=== PATIENT | male | born 1960 | race Caucasian/White ===

== ENCOUNTER → 2017-09-03 | Outpatient (CLI) | payer OTHER ==
[~2017-09-03] MED LIST: ? HTN MED; AMLO10 PO; AMLO5; ANTIANXIETY MED; ASPI81EC PO; CRUTCH4 USE; HYDACE10B PO; HYDACE5 PO; LISHYD1012; LORA1 PO; LOSHYD PO; METO25ER; METO50 PO; METO50ER PO; MULVITMIND PO; Naprosyn500 MG PO; Norco 5-325 Ta1 EACH PO; OMEP20ER PO; ONDA8 PO; OXYACE5T PO; Percocet 5-3251 EACH PO; Prednisone20 MG PO; TAMS.4ER PO; VALD10 PO; Zofran Odt4 MG SL
== END | disposition home or self-care (01) ==
LOC: LAB SHORT 10:00 → LAB 10:00 → LAB FUT 09-02 12:45
DX: K52.9 Noninfective gastroenteritis and colitis, unspecified (principal)
CPT/HCPCS: 87015; 87045; 87046; 87205; 87329; 87493; 87899

== ENCOUNTER 2017-09-24 16:59 | Emergency (ER) | payer OTHER ==
[~2017-09-24] VITALS: Ht 172.7 cm; Wt 113.4 kg
[2017-09-24] MEDS ORDERED: ANXIETY MEDICATION (17:14)
[2017-09-24 17:38] LABS: BASOPHILS ABSOLUTE AUTO 0.02 K/mm3 (0.00-0.23); BASOPHILS PERCENT AUTO 0 % (0-2); EOSINOPHILS ABSOLUTE AUTO 0.09 K/mm3 (0.00-0.68); EOSINOPHILS PERCENT AUTO 1 % (0-6); Hemoglobin 15.3 g/dL (13.5-17.5); IMMATURE GRAN ABSOLUTE AUTO 0.05 K/mm3 (0.00-0.10); IMMATURE GRAN PERCENT AUTO 1 % (0-1); LYMPHOCYTES ABSOLUTE AUTO 0.86 K/mm3 (0.84-5.20); LYMPHOCYTES PERCENT AUTO 9 % (21-46); MONOCYTES ABSOLUTE AUTO 0.83 K/mm3 (0.16-1.47); MONOCYTES PERCENT AUTO 8 % (4-13); Mean Corpuscular HGB 35.6 pg (26.0-34.0); Mean Corpuscular HGB Conc 34.8 g/dL (31.5-36.5); Mean Corpuscular Volume 102 fL (80-100); NEUTROPHILS PERCENT AUTO 81 % (41-73); Platelet Count 200 K/mm3 (150-400); RDW Coefficient Variation 11.9 % (11.7-14.2); RDW Standard Deviation 45.1 fL (35.1-46.3); White Blood Cell Count 9.85 K/mm3 (4.00-11.30)
[2017-09-24 17:59] LABS: Alanine Aminotransfer (ALT/SGP 146 U/L (12-78); Albumin, Blood 2.9 g/dL (3.4-5.0); Albumin/Globulin Ratio 0.6 (0.8-1.8); Alk Phos 144 U/L (50-136); Anion Gap 10 mmol/L (6-16); Aspartate Aminotrans (AST/SGOT 143 U/L (12-37); Bilirubin, Total 3.8 mg/dL (0.1-1.0); Blood Urea Nitrogen 15 mg/dL (8-24); CO2, Blood 23 mmol/L (21-32); Calcium, Blood 8.9 mg/dL (8.5-10.1); Chloride, Blood 102 mmol/L (98-108); Creatinine, Blood 0.71 mg/dL (0.60-1.20); Globulin, Blood 4.8 g/dL (2.2-4.0); Glomerular Filtration Rate >60 (60-); Glucose, Blood 136 mg/dL (70-99); Potassium, Blood 3.8 mmol/L (3.5-5.5); Sodium, Blood 135 mmol/L (136-145); Total Protein, Blood 7.7 g/dL (6.4-8.2)
== END 2017-09-24 18:50 | disposition left against medical advice (07) ==
LOC: ER 16:59
PROVIDERS: Emergency Medicine
DX: Z53.21 Procedure and treatment not carried out due to patient leaving prior to being seen by health care provider (principal)
CPT/HCPCS: 36415; 80053; 85025; 86850; 86900; 86901; 99283

== ENCOUNTER 2017-11-17 18:36 | Inpatient (IN) | payer OTHER ==
[~2017-11-17] VITALS: Ht 172.7 cm; Wt 112.5 kg
[~2017-11-17 18:36] MED LIST changes: +ANXIETY MEDICATION
[2017-11-17 19:14] LABS: BASOPHILS ABSOLUTE AUTO 0.02 K/mm3 (0.00-0.23); BASOPHILS PERCENT AUTO 0 % (0-2); EOSINOPHILS ABSOLUTE AUTO 0.04 K/mm3 (0.00-0.68); EOSINOPHILS PERCENT AUTO 0 % (0-6); Hematocrit 47.9 % (37.0-53.0); Hemoglobin 16.4 g/dL (13.5-17.5); IMMATURE GRAN ABSOLUTE AUTO 0.04 K/mm3 (0.00-0.10); IMMATURE GRAN PERCENT AUTO 0 % (0-1); LYMPHOCYTES ABSOLUTE AUTO 1.35 K/mm3 (0.84-5.20); LYMPHOCYTES PERCENT AUTO 11 % (21-46); MONOCYTES PERCENT AUTO 8 % (4-13); Mean Corpuscular HGB 35.3 pg (26.0-34.0); Mean Corpuscular HGB Conc 34.2 g/dL (31.5-36.5); Mean Corpuscular Volume 103 fL (80-100); NEUTROPHILS ABSOLUTE AUTO 10.09 K/mm3 (1.96-9.15); NEUTROPHILS PERCENT AUTO 80 % (41-73); Platelet Count 225 K/mm3 (150-400); RDW Coefficient Variation 11.8 % (11.7-14.2); RDW Standard Deviation 44.5 fL (35.1-46.3); Red Blood Cell Count 4.65 M/mm3 (4.30-5.90); White Blood Cell Count 12.54 K/mm3 (4.00-11.30)
[2017-11-17 19:35] LABS: Alanine Aminotransfer (ALT/SGP 53 U/L (12-78); Albumin, Blood 3.5 g/dL (3.4-5.0); Albumin/Globulin Ratio 0.8 (0.8-1.8); Alk Phos 116 U/L (50-136); Anion Gap 13 mmol/L (6-16); Aspartate Aminotrans (AST/SGOT 75 U/L (12-37); Bilirubin, Total 1.7 mg/dL (0.1-1.0); Blood Urea Nitrogen 8 mg/dL (8-24); Bun/Creatinine Ratio 11.2 (12.0-20.0); CO2, Blood 24 mmol/L (21-32); Calcium, Blood 8.8 mg/dL (8.5-10.1); Chloride, Blood 103 mmol/L (98-108); Creatinine, Blood 0.72 mg/dL (0.60-1.20); Globulin, Blood 4.5 g/dL (2.2-4.0); Glomerular Filtration Rate >60 (60-); Glucose, Blood 212 mg/dL (70-99); Potassium, Blood 3.6 mmol/L (3.5-5.5); Sodium, Blood 140 mmol/L (136-145)
[2017-11-17 20:37] LABS: Troponin I <0.015 ng/mL (0.000-0.040)
[2017-11-17] MEDS ORDERED: SERT100 PO (21:09)
[2017-11-17] MEDS ORDERED: FURO40 PO (21:09)
[2017-11-17] MEDS ORDERED: ALBU90OI INH (21:10)
[2017-11-17] MEDS ORDERED: METF500C PO (21:10)
[2017-11-17] MEDS ORDERED: POTCHL10ER PO (21:10)
[2017-11-17] MEDS ORDERED: ADULT ASPIRIN81 MG PO (23:39)
[2017-11-18 04:17] LABS: Hematocrit 45.7 % (37.0-53.0); Hemoglobin 15.7 g/dL (13.5-17.5); Mean Corpuscular HGB 35.4 pg (26.0-34.0); Mean Corpuscular HGB Conc 34.4 g/dL (31.5-36.5); Mean Corpuscular Volume 103 fL (80-100); Mean Platelet Volume 9.5 fL (9.1-12.4); Platelet Count 219 K/mm3 (150-400); RDW Standard Deviation 45.8 fL (35.1-46.3); Red Blood Cell Count 4.43 M/mm3 (4.30-5.90); White Blood Cell Count 13.45 K/mm3 (4.00-11.30)
[2017-11-18 04:35] LABS: Alanine Aminotransfer (ALT/SGP 49 U/L (12-78); Albumin, Blood 3.2 g/dL (3.4-5.0); Albumin/Globulin Ratio 0.7 (0.8-1.8); Alk Phos 111 U/L (50-136); Anion Gap 9 mmol/L (6-16); Aspartate Aminotrans (AST/SGOT 63 U/L (12-37); Blood Urea Nitrogen 10 mg/dL (8-24); Bun/Creatinine Ratio 16.3 (12.0-20.0); CO2, Blood 28 mmol/L (21-32); Calcium, Blood 8.2 mg/dL (8.5-10.1); Chloride, Blood 103 mmol/L (98-108); Creatinine, Blood 0.61 mg/dL (0.60-1.20); Globulin, Blood 4.3 g/dL (2.2-4.0); Glomerular Filtration Rate >60 (60-); Glucose, Blood 200 mg/dL (70-99); Potassium, Blood 4.1 mmol/L (3.5-5.5); Sodium, Blood 140 mmol/L (136-145); Total Protein, Blood 7.5 g/dL (6.4-8.2)
[2017-11-18 10:05] LABS: Source, Urine Clean Catch
[2017-11-18 10:10] LABS: Blood, Urine Neg (Neg); Glucose Qualitative, Urine Neg (Neg); Ketones, Urine Neg (Neg); Leukocyte Esterase, Urine Neg (Neg); Nitrite, Urine Neg (Neg); Protein, Urine Neg (Neg); Urobilinogen, Urine 3+ (Normal)
[2017-11-18 10:20] LABS: Bilirubin, Urine 1+ (Neg)
[2017-11-18 10:21] LABS: Appearance, Urine Clear (Clear); Color, Urine Yellow (P-Yellow)
[2017-11-18 10:27] LABS: U Amphetamine Screen Not Detected; U Barbituate Screen Not Detected; U Benzodiazapine Screen Not Detected; U Buprenorphine Screen Not Detected; U Cannabinoids Screen DETECTED; U Cocaine Screen Not Detected; U Methadone Screen Not Detected; U Methamphetamine Screen Not Detected; U Opiates Screen DETECTED; U Oxycodone Screen Not Detected; U Phencyclidine Screen Not Detected; U Propoxyphene Screen Not Detected
[2017-11-19 04:10] LABS: BASOPHILS ABSOLUTE AUTO 0.03 K/mm3 (0.00-0.23); BASOPHILS PERCENT AUTO 0 % (0-2); EOSINOPHILS ABSOLUTE AUTO 0.07 K/mm3 (0.00-0.68); EOSINOPHILS PERCENT AUTO 1 % (0-6); Hematocrit 45.2 % (37.0-53.0); Hemoglobin 15.2 g/dL (13.5-17.5); IMMATURE GRAN ABSOLUTE AUTO 0.04 K/mm3 (0.00-0.10); IMMATURE GRAN PERCENT AUTO 0 % (0-1); LYMPHOCYTES ABSOLUTE AUTO 2.03 K/mm3 (0.84-5.20); LYMPHOCYTES PERCENT AUTO 13 % (21-46); MONOCYTES PERCENT AUTO 8 % (4-13); Mean Corpuscular HGB 35.2 pg (26.0-34.0); Mean Corpuscular HGB Conc 33.6 g/dL (31.5-36.5); Mean Corpuscular Volume 105 fL (80-100); Mean Platelet Volume 9.5 fL (9.1-12.4); NEUTROPHILS ABSOLUTE AUTO 11.95 K/mm3 (1.96-9.15); NEUTROPHILS PERCENT AUTO 77 % (41-73); Platelet Count 172 K/mm3 (150-400); RDW Coefficient Variation 11.9 % (11.7-14.2); RDW Standard Deviation 46.4 fL (35.1-46.3); Red Blood Cell Count 4.32 M/mm3 (4.30-5.90); White Blood Cell Count 15.42 K/mm3 (4.00-11.30)
[2017-11-19 04:29] LABS: Alanine Aminotransfer (ALT/SGP 37 U/L (12-78); Albumin, Blood 2.9 g/dL (3.4-5.0); Albumin/Globulin Ratio 0.7 (0.8-1.8); Alk Phos 98 U/L (50-136); Anion Gap 6 mmol/L (6-16); Aspartate Aminotrans (AST/SGOT 52 U/L (12-37); Bilirubin, Total 3.3 mg/dL (0.1-1.0); Blood Urea Nitrogen 11 mg/dL (8-24); Bun/Creatinine Ratio 17.5 (12.0-20.0); CO2, Blood 29 mmol/L (21-32); Calcium, Blood 7.8 mg/dL (8.5-10.1); Chloride, Blood 104 mmol/L (98-108); Creatinine, Blood 0.63 mg/dL (0.60-1.20); Globulin, Blood 4.2 g/dL (2.2-4.0); Glomerular Filtration Rate >60 (60-); Glucose, Blood 118 mg/dL (70-99); Sodium, Blood 139 mmol/L (136-145); Total Protein, Blood 7.1 g/dL (6.4-8.2)
[2017-11-19 15:33] LABS: RETIC HGB EQUIVALENT 40.4 pg (28.20-36.60); RETICULOCYTE ABSOLUTE 0.1168 M/mm3 (0.0200-0.1100); RETICULOCYTE COUNT PERCENT 2.92 % (0.50-2.50)
[2017-11-20 05:11] LABS: BASOPHILS ABSOLUTE AUTO 0.02 K/mm3 (0.00-0.23); BASOPHILS PERCENT AUTO 0 % (0-2); EOSINOPHILS ABSOLUTE AUTO 0.17 K/mm3 (0.00-0.68); EOSINOPHILS PERCENT AUTO 1 % (0-6); Hematocrit 41.6 % (37.0-53.0); Hemoglobin 14.7 g/dL (13.5-17.5); IMMATURE GRAN ABSOLUTE AUTO 0.05 K/mm3 (0.00-0.10); IMMATURE GRAN PERCENT AUTO 0 % (0-1); LYMPHOCYTES ABSOLUTE AUTO 1.85 K/mm3 (0.84-5.20); LYMPHOCYTES PERCENT AUTO 15 % (21-46); MONOCYTES ABSOLUTE AUTO 1.08 K/mm3 (0.16-1.47); MONOCYTES PERCENT AUTO 9 % (4-13); Mean Corpuscular HGB Conc 35.3 g/dL (31.5-36.5); Mean Corpuscular Volume 102 fL (80-100); Mean Platelet Volume 9.5 fL (9.1-12.4); NEUTROPHILS ABSOLUTE AUTO 9.27 K/mm3 (1.96-9.15); NEUTROPHILS PERCENT AUTO 74 % (41-73); Platelet Count 151 K/mm3 (150-400); RDW Coefficient Variation 11.5 % (11.7-14.2); RDW Standard Deviation 43.7 fL (35.1-46.3); Red Blood Cell Count 4.08 M/mm3 (4.30-5.90); White Blood Cell Count 12.44 K/mm3 (4.00-11.30)
[2017-11-20 05:30] LABS: Alanine Aminotransfer (ALT/SGP 31 U/L (12-78); Albumin, Blood 2.5 g/dL (3.4-5.0); Albumin/Globulin Ratio 0.6 (0.8-1.8); Alk Phos 86 U/L (50-136); Anion Gap 11 mmol/L (6-16); Aspartate Aminotrans (AST/SGOT 33 U/L (12-37); Bilirubin, Total 2.1 mg/dL (0.1-1.0); Blood Urea Nitrogen 12 mg/dL (8-24); Bun/Creatinine Ratio 21.8 (12.0-20.0); CO2, Blood 23 mmol/L (21-32); Calcium, Blood 7.6 mg/dL (8.5-10.1); Chloride, Blood 105 mmol/L (98-108); Creatinine, Blood 0.55 mg/dL (0.60-1.20); Globulin, Blood 4.3 g/dL (2.2-4.0); Glomerular Filtration Rate >60 (60-); Glucose, Blood 121 mg/dL (70-99); Potassium, Blood 3.6 mmol/L (3.5-5.5); Sodium, Blood 139 mmol/L (136-145); Total Protein, Blood 6.8 g/dL (6.4-8.2)
[2017-11-20] MEDS ORDERED: CLON.1 PO (10:18)
[2017-11-20] MEDS ORDERED: SERT100 PO (10:19)
[2017-11-20] MEDS ORDERED: Glipizide ER2.5 MG PO (10:20)
[2017-11-20] MEDS ORDERED: METF500C PO (10:22)
[2017-11-21 08:07] LABS: HAPTOGLOBIN 201 mg/dL (34-200)
== END 2017-11-20 10:43 | disposition home or self-care (01) | DRG 440 ==
LOC: ER 18:36 → PCU 21:36 → MEDS 21:36 → PCU 23:28 → MEDS 11-18 23:15 → ENPENDDIS 11-20 08:30 → MEDS 11-20 10:43
PROVIDERS: Emergency Medicine; Family Medicine; Internal Medicine Gastroenterology; Nurse Practitioner Acute Care
DX: K85.90 Acute pancreatitis without necrosis or infection, unspecified (principal); I71.2 Thoracic aortic aneurysm, without rupture; F41.9 Anxiety disorder, unspecified; I10 Essential (primary) hypertension; F17.210 Nicotine dependence, cigarettes, uncomplicated; I16.0 Hypertensive urgency; G51.0 Bell's palsy; Z68.37 Body mass index [BMI] 37.0-37.9, adult; E66.3 Overweight; K80.20 Calculus of gallbladder without cholecystitis without obstruction; E11.9 Type 2 diabetes mellitus without complications; D72.829 Elevated white blood cell count, unspecified; Z87.442 Personal history of urinary calculi; Z79.82 Long term (current) use of aspirin; Z79.84 Long term (current) use of oral hypoglycemic drugs
CPT/HCPCS: 36415; 71046; 76705; 80053; 81003; 82248; 82947; 83010; 83036; 83615; 83690; 83880; 84443; 84484; 85025; 85027; 85045; 93005; 93010; 93306; 94640; 94760; 94762; 96374; 96375; 96376; 99285-25; C9113; J0360; J1650; J2405; J3010; J7030

== ENCOUNTER 2018-05-18 08:55 | Emergency (ER) | payer OTHER ==
[~2018-05-18] VITALS: Ht 172.7 cm; Wt 111.1 kg
[~2018-05-18 08:55] MED LIST changes: +ADULT ASPIRIN81 MG PO; +ALBU90OI INH; +CLON.1 PO; +FURO40 PO; +Glipizide ER2.5 MG PO; +METF500C PO; +POTCHL10ER PO; +SERT100 PO
[2018-05-18 09:21] LABS: BASOPHILS ABSOLUTE AUTO 0.02 K/mm3 (0.00-0.23); BASOPHILS PERCENT AUTO 0 % (0-2); EOSINOPHILS ABSOLUTE AUTO 0.05 K/mm3 (0.00-0.68); EOSINOPHILS PERCENT AUTO 1 % (0-6); Hemoglobin 14.9 g/dL (13.5-17.5); IMMATURE GRAN ABSOLUTE AUTO 0.01 K/mm3 (0.00-0.10); IMMATURE GRAN PERCENT AUTO 0 % (0-1); LYMPHOCYTES PERCENT AUTO 15 % (21-46); MONOCYTES ABSOLUTE AUTO 0.69 K/mm3 (0.16-1.47); MONOCYTES PERCENT AUTO 9 % (4-13); Mean Corpuscular HGB 35.4 pg (26.0-34.0); Mean Corpuscular HGB Conc 34.7 g/dL (31.5-36.5); Mean Corpuscular Volume 102 fL (80-100); Mean Platelet Volume 9.5 fL (9.1-12.4); NEUTROPHILS ABSOLUTE AUTO 5.44 K/mm3 (1.96-9.15); NEUTROPHILS PERCENT AUTO 75 % (41-73); Platelet Count 187 K/mm3 (150-400); RDW Coefficient Variation 11.8 % (11.7-14.2); RDW Standard Deviation 43.9 fL (35.1-46.3); Red Blood Cell Count 4.21 M/mm3 (4.30-5.90); White Blood Cell Count 7.31 K/mm3 (4.00-11.30)
[2018-05-18 10:56] LABS: Alanine Aminotransfer (ALT/SGP 66 U/L (12-78); Albumin, Blood 3.1 g/dL (3.4-5.0); Albumin/Globulin Ratio 0.7 (0.8-1.8); Alk Phos 110 U/L (50-136); Anion Gap 9 mmol/L (6-16); Aspartate Aminotrans (AST/SGOT 94 U/L (12-37); Bilirubin, Total 1.5 mg/dL (0.1-1.0); Blood Urea Nitrogen 6 mg/dL (8-24); CO2, Blood 26 mmol/L (21-32); Calcium, Blood 8.6 mg/dL (8.5-10.1); Chloride, Blood 106 mmol/L (98-108); Creatinine, Blood 0.75 mg/dL (0.60-1.20); Globulin, Blood 4.7 g/dL (2.2-4.0); Glomerular Filtration Rate >60 (60-); Glucose, Blood 175 mg/dL (70-99); Potassium, Blood 3.9 mmol/L (3.5-5.5); Sodium, Blood 141 mmol/L (136-145); Total Protein, Blood 7.8 g/dL (6.4-8.2); Troponin I <0.015 ng/mL (0.000-0.040)
[2018-05-18] MEDS ORDERED: HYDR1TAB94 PO (12:09)
[2018-05-18] MEDS ORDERED: Pepcid40 MG PO (12:09)
== END 2018-05-18 12:33 | disposition home or self-care (01) ==
LOC: ER 08:55
PROVIDERS: Emergency Medicine
DX: R07.2 Precordial pain (principal); F41.9 Anxiety disorder, unspecified; I10 Essential (primary) hypertension; F10.10 Alcohol abuse, uncomplicated; F17.210 Nicotine dependence, cigarettes, uncomplicated; Z88.5 Allergy status to narcotic agent; Z88.1 Allergy status to other antibiotic agents; Z79.82 Long term (current) use of aspirin; Z79.899 Other long term (current) drug therapy
CPT/HCPCS: 71046; 80053; 84484; 85025; 93005; 93010; 96374; 96375; 99285-25; J1885

== ENCOUNTER 2018-08-01 05:30 | Emergency (ER) | payer OTHER ==
[~2018-08-01] VITALS: Ht 172.7 cm; Wt 111.1 kg
[~2018-08-01 05:30] MED LIST changes: +HYDR1TAB94 PO; +Pepcid40 MG PO
[2018-08-01 06:12] LABS: BASOPHILS ABSOLUTE AUTO 0.02 K/mm3 (0.00-0.23); BASOPHILS PERCENT AUTO 0 % (0-2); EOSINOPHILS ABSOLUTE AUTO 0.09 K/mm3 (0.00-0.68); EOSINOPHILS PERCENT AUTO 1 % (0-6); Hematocrit 40.7 % (37.0-53.0); Hemoglobin 13.7 g/dL (13.5-17.5); IMMATURE GRAN ABSOLUTE AUTO 0.03 K/mm3 (0.00-0.10); IMMATURE GRAN PERCENT AUTO 0 % (0-1); LYMPHOCYTES ABSOLUTE AUTO 1.69 K/mm3 (0.84-5.20); LYMPHOCYTES PERCENT AUTO 18 % (21-46); MONOCYTES ABSOLUTE AUTO 1.05 K/mm3 (0.16-1.47); MONOCYTES PERCENT AUTO 11 % (4-13); Mean Corpuscular HGB 34.6 pg (26.0-34.0); Mean Corpuscular HGB Conc 33.7 g/dL (31.5-36.5); Mean Corpuscular Volume 103 fL (80-100); Mean Platelet Volume 9.3 fL (9.1-12.4); NEUTROPHILS ABSOLUTE AUTO 6.76 K/mm3 (1.96-9.15); NEUTROPHILS PERCENT AUTO 70 % (41-73); Platelet Count 278 K/mm3 (150-400); RDW Coefficient Variation 11.7 % (11.7-14.2); RDW Standard Deviation 44.5 fL (35.1-46.3); Red Blood Cell Count 3.96 M/mm3 (4.30-5.90); White Blood Cell Count 9.64 K/mm3 (4.00-11.30)
[2018-08-01 06:26] LABS: Alanine Aminotransfer (ALT/SGP 33 U/L (12-78); Albumin, Blood 2.7 g/dL (3.4-5.0); Albumin/Globulin Ratio 0.5 (0.8-1.8); Alk Phos 112 U/L (50-136); Anion Gap 8 mmol/L (6-16); Aspartate Aminotrans (AST/SGOT 63 U/L (12-37); Bilirubin, Total 1.3 mg/dL (0.1-1.0); Blood Urea Nitrogen 6 mg/dL (8-24); Bun/Creatinine Ratio 8.6 (12.0-20.0); CO2, Blood 27 mmol/L (21-32); Calcium, Blood 8.4 mg/dL (8.5-10.1); Chloride, Blood 102 mmol/L (98-108); Globulin, Blood 5.7 g/dL (2.2-4.0); Glomerular Filtration Rate >60 (60-); Glucose, Blood 149 mg/dL (70-99); Potassium, Blood 3.2 mmol/L (3.5-5.5); Sodium, Blood 137 mmol/L (136-145); Total Protein, Blood 8.4 g/dL (6.4-8.2); Troponin I <0.015 ng/mL (0.000-0.040)
[2018-08-01] MEDS ORDERED: Miralax17 GM PO (07:47)
[2018-08-01] MEDS ORDERED: Colace100 MG PO (07:47)
[2018-08-01] MEDS ORDERED: ONDA4ODT MM (07:50)
[2018-08-01 08:11] LABS: Source, Urine Clean Catch
[2018-08-01 08:13] LABS: Bilirubin, Urine Neg (Neg); Blood, Urine Neg (Neg); Glucose Qualitative, Urine Neg (Neg); Ketones, Urine Neg (Neg); Leukocyte Esterase, Urine Neg (Neg); Nitrite, Urine Neg (Neg); Protein, Urine Neg (Neg); Urobilinogen, Urine NORM (Normal)
[2018-08-01 08:14] LABS: Appearance, Urine Clear (Clear); Color, Urine Pale Yellow (P-Yellow)
== END 2018-08-01 07:59 | disposition home or self-care (01) ==
LOC: ER 05:30
PROVIDERS: Emergency Medicine
DX: K59.00 Constipation, unspecified (principal); I10 Essential (primary) hypertension; F41.9 Anxiety disorder, unspecified; F17.200 Nicotine dependence, unspecified, uncomplicated; Z88.5 Allergy status to narcotic agent; Z88.6 Allergy status to analgesic agent; Z88.8 Allergy status to other drugs, medicaments and biological substances; Z79.899 Other long term (current) drug therapy
CPT/HCPCS: 36415; 74022; 80053; 81003; 83690; 84484; 85025; 93005; 93010; 96361; 96374; 96375; 99284-25; J1885; J2405; J7120

== ENCOUNTER 2018-09-03 11:45 | Inpatient (IN) | payer OTHER ==
[~2018-09-03] VITALS: Ht 172.7 cm; Wt 106.4 kg
[~2018-09-03 11:45] MED LIST changes: +Colace100 MG PO; +DOCU100 PO; +GABA300 PO; +Miralax17 GM PO; +Nicoderm Cq1 EAC1 TOP; +ONDA4ODT MM
[2018-09-03 12:40] LABS: BASOPHILS ABSOLUTE AUTO 0.03 K/mm3 (0.00-0.23); BASOPHILS PERCENT AUTO 0 % (0-2); EOSINOPHILS ABSOLUTE AUTO 0.07 K/mm3 (0.00-0.68); EOSINOPHILS PERCENT AUTO 1 % (0-6); Hemoglobin 13.3 g/dL (13.5-17.5); IMMATURE GRAN ABSOLUTE AUTO 0.02 K/mm3 (0.00-0.10); IMMATURE GRAN PERCENT AUTO 0 % (0-1); LYMPHOCYTES ABSOLUTE AUTO 1.78 K/mm3 (0.84-5.20); LYMPHOCYTES PERCENT AUTO 18 % (21-46); MONOCYTES ABSOLUTE AUTO 0.75 K/mm3 (0.16-1.47); MONOCYTES PERCENT AUTO 7 % (4-13); Mean Corpuscular HGB 33.5 pg (26.0-34.0); Mean Corpuscular HGB Conc 32.4 g/dL (31.5-36.5); Mean Corpuscular Volume 103 fL (80-100); NEUTROPHILS ABSOLUTE AUTO 7.49 K/mm3 (1.96-9.15); NEUTROPHILS PERCENT AUTO 74 % (41-73); Platelet Count 265 K/mm3 (150-400); RDW Standard Deviation 46.5 fL (35.1-46.3); Red Blood Cell Count 3.97 M/mm3 (4.30-5.90); White Blood Cell Count 10.14 K/mm3 (4.00-11.30)
[2018-09-03 13:07] LABS: Alanine Aminotransfer (ALT/SGP 30 U/L (12-78); Albumin, Blood 2.8 g/dL (3.4-5.0); Albumin/Globulin Ratio 0.6 (0.8-1.8); Alk Phos 96 U/L (50-136); Anion Gap 7 mmol/L (6-16); Aspartate Aminotrans (AST/SGOT 43 U/L (12-37); Bilirubin, Total 0.7 mg/dL (0.1-1.0); Blood Urea Nitrogen 8 mg/dL (8-24); Bun/Creatinine Ratio 12.5 (12.0-20.0); CO2, Blood 22 mmol/L (21-32); Calcium, Blood 8.3 mg/dL (8.5-10.1); Chloride, Blood 111 mmol/L (98-108); Creatinine, Blood 0.64 mg/dL (0.60-1.20); Glomerular Filtration Rate >60 (60-); Glucose, Blood 173 mg/dL (70-99); Potassium, Blood 3.9 mmol/L (3.5-5.5); Sodium, Blood 140 mmol/L (136-145); Total Protein, Blood 7.8 g/dL (6.4-8.2); Troponin I <0.015 ng/mL (0.000-0.040)
[2018-09-03 18:30] LABS: International Normalized Ratio 1.11; Prothrombin Time Results 11.7 Sec (9.7-11.5)
[2018-09-04 01:58] LABS: BASOPHILS ABSOLUTE AUTO 0.02 K/mm3 (0.00-0.23); BASOPHILS PERCENT AUTO 0 % (0-2); EOSINOPHILS PERCENT AUTO 1 % (0-6); Hematocrit 40.7 % (37.0-53.0); Hemoglobin 12.9 g/dL (13.5-17.5); IMMATURE GRAN ABSOLUTE AUTO 0.03 K/mm3 (0.00-0.10); IMMATURE GRAN PERCENT AUTO 0 % (0-1); LYMPHOCYTES ABSOLUTE AUTO 2.06 K/mm3 (0.84-5.20); LYMPHOCYTES PERCENT AUTO 20 % (21-46); MONOCYTES ABSOLUTE AUTO 0.87 K/mm3 (0.16-1.47); MONOCYTES PERCENT AUTO 9 % (4-13); Mean Corpuscular HGB 32.7 pg (26.0-34.0); Mean Corpuscular HGB Conc 31.7 g/dL (31.5-36.5); Mean Corpuscular Volume 103 fL (80-100); Mean Platelet Volume 9.2 fL (9.1-12.4); NEUTROPHILS ABSOLUTE AUTO 7.14 K/mm3 (1.96-9.15); NEUTROPHILS PERCENT AUTO 70 % (41-73); Platelet Count 265 K/mm3 (150-400); RDW Standard Deviation 46.2 fL (35.1-46.3); Red Blood Cell Count 3.94 M/mm3 (4.30-5.90); White Blood Cell Count 10.22 K/mm3 (4.00-11.30)
[2018-09-04 02:07] LABS: Anion Gap 5 mmol/L (6-16); Blood Urea Nitrogen 6 mg/dL (8-24); Bun/Creatinine Ratio 9.2 (12.0-20.0); CO2, Blood 26 mmol/L (21-32); Calcium, Blood 8.1 mg/dL (8.5-10.1); Chloride, Blood 108 mmol/L (98-108); Creatinine, Blood 0.65 mg/dL (0.60-1.20); Glomerular Filtration Rate >60 (60-); Glucose, Blood 120 mg/dL (70-99); Potassium, Blood 3.7 mmol/L (3.5-5.5); Sodium, Blood 139 mmol/L (136-145)
--- NOTE | 2018-09-04 03:27 | NUR ---
SHIFT SUMMARY PT A&O X4 T/O SHIFT. PT NPO; ICE CHIPS, ORAL SWAB AND MOUTH WASH AT BEDSIDE. ABD SOFT; BTX4; FLATUS NOTED. ABD/EPIGASTRIC PAIN MANAGED PER EMAR. IV HEPARIN GTT MANAGED PER PHARMACY. VSS; NO ACUTE CHANGES. BLOOD GLUCOSE LEVELS MANAGED PER EMAR; NO INSULIN COVERAGE REQUIRED. SCD'S TO BLE'S. CALL LIGHT IN REACH; PT DEMONSTRATES USE. CIWA SCORE OF 0 T/O SHIFT. PT INDEPENDENTLY BED MOBILE. WCTM UNTIL REPORT TO DAY SHIFT RN.
--- NOTE | 2018-09-04 10:08 | NUR ---
BEGINNING OF SHIFT Assumed care of pt at 0700. Report received from Yola HENRY. Pt on room air. Independent for room activities. Shift assessment completed. Pt pleasant and cooperative with care. Pt talks to staff about his health history and the care he provides for his spouse. He talks in detail about her disabilities and the care he helps provide for her. Dr Moreno in to see patient. Pt medical floor status without telemetry. Pt independently ambulated for 10-15 minutes. Tolerates activity well, but requested dilaudid after ambulating. Pt had emesis immediately after administration after dilaudid. Pt states this is a known reaction to the medication and he has experienced it before. Bed in lowest position. Call light in reach. Pt denies need at this time.
--- NOTE | 2018-09-04 17:20 | NUR ---
SHIFT SUMMARY No acute changes t/o shift. Pt has been independent in room. Tolerating clear liquid diet well. Pt has not had any additional episodes of emesis. Will continue to closely monitor until care handoff and bedside report with oncoming RN.
--- NOTE | 2018-09-05 04:14 | NUR ---
SHIFT SUMMARY: PT A&O X4 T/O SHIFT. VSS. GIVEN 1MG DILAUDID PER EMAR FOR C/O ABD PAIN. PT EAGER TO SWITCH FROM IV PAIN MEDICATION TO ORAL. PT DENIES N/V. ESPINOZA CLEAR LIQ DIET. ACTIVE BT. BLOOD SUGARS STABLE. HEPARIN DRIP INFUSING. TITRATED ONCE OVER NIGHT PER PHARMACY. PT INDEPENDENT IN ROOM. VOIDING IN URINAL. NO CONCERNS AT THIS TIME.
[2018-09-05 07:23] LABS: Alpha Feto Protein, Tumor Mkr 2.5 ng/mL (0.0-8.0)
[2018-09-05] MEDS ORDERED: THERA1 EACH PO (13:36)
[2018-09-05] MEDS ORDERED: OXYC5 PO (13:38)
[2018-09-05] MEDS ORDERED: XARELTO20 MG PO (13:38)
--- NOTE | 2018-09-05 15:21 | NUR ---
SUMMARY Assumed care of pt at 0700 with Teresa MCGINNIS. Bedside report received from Charity HENRY. Orders received from Dr Moreno and Dr Garber. Heparin drip discontinued. Pt started on xarelto. Dr Moreno stated pt could go home today if it was okay with Dr Garber. Dr Garber stated he would like pt to eat a regular lunch and see if he tolerates it. Pt had regular adult diet for lunch. Tolerated tray well with no nausea or exacerbation of pain. Dr Moreno notified. RI orders received. Medications called to [facility] on [address]. Pt typically uses [facility], however this pharmacy is closed today. Pt also provided with Xarelto coupon and written prescription for oxycodone. [facility].
[2018-09-07 01:08] LABS: HBSAG SCREEN Negative (Negative); HEP B CORE AB, TOT Negative (Negative); HEP C VIRUS AB <0.1 (0.0-0.9)
== END 2018-09-05 14:17 | disposition home or self-care (01) | DRG 438 ==
LOC: ER 11:45 → ERHOLD 15:08 → PCU 15:08 → EDBEDREQ 16:20 → PCU 16:56
PROVIDERS: Emergency Medicine; Internal Medicine Gastroenterology; Pharmacist; ADMIT Family Medicine
DX: K85.20 Alcohol induced acute pancreatitis without necrosis or infection (principal); I81 Portal vein thrombosis; I82.890 Acute embolism and thrombosis of other specified veins; I10 Essential (primary) hypertension; E11.9 Type 2 diabetes mellitus without complications; I71.9 Aortic aneurysm of unspecified site, without rupture; F17.210 Nicotine dependence, cigarettes, uncomplicated; R16.0 Hepatomegaly, not elsewhere classified; F32.9 Major depressive disorder, single episode, unspecified; D64.9 Anemia, unspecified; Z79.84 Long term (current) use of oral hypoglycemic drugs
CPT/HCPCS: 36415; 71046; 71275; 74175; 80048; 80053; 82105; 82378; 82947; 83690; 84484; 85025; 85610; 85730; 86301; 93005; 93010; 96374-59; 96375-59; 96376-59; 99285-25; J0360; J1170; J1644; J1815; J2270; J2405; J3010; J3411; J7030; Q9967

== ENCOUNTER 2018-09-20 10:04 | Inpatient (IN) | payer OTHER ==
[~2018-09-20] VITALS: Ht 172.7 cm; Wt 102.5 kg
[~2018-09-20 10:04] MED LIST changes: +METF500 PO; -Nicoderm Cq1 EAC1 TOP; +Nicoderm Cq1 EACH TOP; +OXYC5 PO; +THERA1 EACH PO; +XARELTO20 MG PO
[2018-09-20 10:33] LABS: BASOPHILS ABSOLUTE AUTO 0.03 K/mm3 (0.00-0.23); BASOPHILS PERCENT AUTO 0 % (0-2); EOSINOPHILS ABSOLUTE AUTO 0.14 K/mm3 (0.00-0.68); EOSINOPHILS PERCENT AUTO 1 % (0-6); Hematocrit 42.7 % (37.0-53.0); IMMATURE GRAN ABSOLUTE AUTO 0.02 K/mm3 (0.00-0.10); IMMATURE GRAN PERCENT AUTO 0 % (0-1); LYMPHOCYTES ABSOLUTE AUTO 2.18 K/mm3 (0.84-5.20); LYMPHOCYTES PERCENT AUTO 21 % (21-46); MONOCYTES ABSOLUTE AUTO 0.91 K/mm3 (0.16-1.47); MONOCYTES PERCENT AUTO 9 % (4-13); Mean Corpuscular HGB 32.9 pg (26.0-34.0); Mean Corpuscular HGB Conc 32.8 g/dL (31.5-36.5); Mean Corpuscular Volume 100 fL (80-100); Mean Platelet Volume 9.4 fL (9.1-12.4); NEUTROPHILS ABSOLUTE AUTO 7.17 K/mm3 (1.96-9.15); NEUTROPHILS PERCENT AUTO 69 % (41-73); Platelet Count 246 K/mm3 (150-400); RDW Coefficient Variation 12.2 % (11.7-14.2); RDW Standard Deviation 45.8 fL (35.1-46.3); Red Blood Cell Count 4.26 M/mm3 (4.30-5.90); White Blood Cell Count 10.45 K/mm3 (4.00-11.30)
[2018-09-20 10:49] LABS: Alanine Aminotransfer (ALT/SGP 31 U/L (12-78); Albumin, Blood 3.4 g/dL (3.4-5.0); Albumin/Globulin Ratio 0.7 (0.8-1.8); Alk Phos 84 U/L (50-136); Anion Gap 8 mmol/L (6-16); Aspartate Aminotrans (AST/SGOT 41 U/L (12-37); Bilirubin, Total 0.9 mg/dL (0.1-1.0); Blood Urea Nitrogen 9 mg/dL (8-24); Bun/Creatinine Ratio 12.9 (12.0-20.0); CO2, Blood 21 mmol/L (21-32); Calcium, Blood 9.1 mg/dL (8.5-10.1); Chloride, Blood 110 mmol/L (98-108); Globulin, Blood 5.2 g/dL (2.2-4.0); Glomerular Filtration Rate >60 (60-); Glucose, Blood 164 mg/dL (70-99); Potassium, Blood 4.2 mmol/L (3.5-5.5); Sodium, Blood 139 mmol/L (136-145); Total Protein, Blood 8.6 g/dL (6.4-8.2)
--- NOTE | 2018-09-20 13:05 | NUR ---
ER ADMIT PT ORIENTED TO ROOM. BED LOW AND IN LOCKED POSITION. CALL LIGHT WITHIN REACH. FREQUENT ROUNDING EXPLAINED TO PATIENT. DR. BATEMAN CURRENTLY AT BEDSIDE TALKING WITH PATIENT.
--- NOTE | 2018-09-20 17:46 | NUR ---
SHIFT SUMMARY ADMIT FROM ED THIS AFTERNOON. ARRIVED IN SEVERE UPPER ABDOMINAL PAIN. RECENT ADMIT FOR SAME. LAST ETOH LAST PM. A AND OX4. NO SIGNS OF ETOH WITHDRAWAL AT THIS TIME. PLEASANT AND COOPERATIVE. INDEPENDENT IN ROOM USING URINAL WELL.
[2018-09-20] MEDS ORDERED: GABA300 PO (18:15)
[2018-09-21 04:53] LABS: BASOPHILS ABSOLUTE AUTO 0.02 K/mm3 (0.00-0.23); BASOPHILS PERCENT AUTO 0 % (0-2); EOSINOPHILS ABSOLUTE AUTO 0.01 K/mm3 (0.00-0.68); EOSINOPHILS PERCENT AUTO 0 % (0-6); Hematocrit 43.2 % (37.0-53.0); Hemoglobin 14.1 g/dL (13.5-17.5); IMMATURE GRAN ABSOLUTE AUTO 0.07 K/mm3 (0.00-0.10); IMMATURE GRAN PERCENT AUTO 0 % (0-1); LYMPHOCYTES PERCENT AUTO 9 % (21-46); MONOCYTES ABSOLUTE AUTO 1.59 K/mm3 (0.16-1.47); MONOCYTES PERCENT AUTO 9 % (4-13); Mean Corpuscular HGB 32.8 pg (26.0-34.0); Mean Corpuscular HGB Conc 32.6 g/dL (31.5-36.5); Mean Corpuscular Volume 101 fL (80-100); Mean Platelet Volume 9.5 fL (9.1-12.4); NEUTROPHILS ABSOLUTE AUTO 13.92 K/mm3 (1.96-9.15); NEUTROPHILS PERCENT AUTO 81 % (41-73); Platelet Count 273 K/mm3 (150-400); RDW Coefficient Variation 12.5 % (11.7-14.2); RDW Standard Deviation 46.1 fL (35.1-46.3); White Blood Cell Count 17.21 K/mm3 (4.00-11.30)
[2018-09-21 05:34] LABS: Anion Gap 8 mmol/L (6-16); Blood Urea Nitrogen 9 mg/dL (8-24); CO2, Blood 20 mmol/L (21-32); Calcium, Blood 8.4 mg/dL (8.5-10.1); Chloride, Blood 108 mmol/L (98-108); Creatinine, Blood 0.56 mg/dL (0.60-1.20); Glomerular Filtration Rate >60 (60-); Glucose, Blood 132 mg/dL (70-99); Magnesium, Blood 1.9 mg/dL (1.6-2.4); Phosphorus, Blood 3.2 mg/dL (2.5-4.9); Potassium, Blood 4.2 mmol/L (3.5-5.5); Sodium, Blood 136 mmol/L (136-145)
--- NOTE | 2018-09-21 07:18 | NUR ---
call light in reach, room air, walking in isabel, required pain medication as much as possible, pain not at acceptable level, walking rounds completed with day staff
--- NOTE | 2018-09-21 12:00 | NUR ---
Patient is very talkative and openly shares about his struggles and triumphs. 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 Patient attributes his ability to overcome to his angela in God and states that there have been many miracles along the way. Patient is hoping that medications can be altered to get the best result for his the healing of his pancreatitis. He owns his part in the equation and realizes the link to his drinking and his health but states that he has not been drinking in weeks. I listen empathically, provide companionship and prayer. Patient responds well and shows signs of restored angela.
--- NOTE | 2018-09-21 12:49 | NUR ---
PT SLEEPING RR EVEN AND UNLABORED.
--- NOTE | 2018-09-21 18:37 | NUR ---
SHIFT SUMMARY DECREASED NEED FOR IV PAIN MEDICATIONS TODAY. TOLERATING FULL LIQUID DIET. GOING OUTSIDE MULTIPLE TIMES TODAY TO SMOKE. APPEARS COMFORTABLE. POSSIBLE DISCHARGE HOME TOMORROW.1ST ROUND OF MRSA SWABS NEGATIVE.
--- NOTE | 2018-09-21 18:41 | NUR ---
VOICE MESSAGE SENT TO DR. BATEMAN REPORTING INCREASED WBC TODAY.
[2018-09-22 04:45] LABS: BASOPHILS ABSOLUTE AUTO 0.02 K/mm3 (0.00-0.23); BASOPHILS PERCENT AUTO 0 % (0-2); EOSINOPHILS ABSOLUTE AUTO 0.26 K/mm3 (0.00-0.68); EOSINOPHILS PERCENT AUTO 2 % (0-6); Hematocrit 38.5 % (37.0-53.0); Hemoglobin 12.2 g/dL (13.5-17.5); IMMATURE GRAN ABSOLUTE AUTO 0.02 K/mm3 (0.00-0.10); IMMATURE GRAN PERCENT AUTO 0 % (0-1); LYMPHOCYTES ABSOLUTE AUTO 2.44 K/mm3 (0.84-5.20); LYMPHOCYTES PERCENT AUTO 21 % (21-46); MONOCYTES ABSOLUTE AUTO 1.23 K/mm3 (0.16-1.47); MONOCYTES PERCENT AUTO 10 % (4-13); Mean Corpuscular HGB 32.7 pg (26.0-34.0); Mean Corpuscular HGB Conc 31.7 g/dL (31.5-36.5); Mean Corpuscular Volume 103 fL (80-100); Mean Platelet Volume 9.7 fL (9.1-12.4); NEUTROPHILS ABSOLUTE AUTO 7.84 K/mm3 (1.96-9.15); NEUTROPHILS PERCENT AUTO 66 % (41-73); Platelet Count 214 K/mm3 (150-400); RDW Coefficient Variation 12.5 % (11.7-14.2); RDW Standard Deviation 47.4 fL (35.1-46.3); Red Blood Cell Count 3.73 M/mm3 (4.30-5.90); White Blood Cell Count 11.81 K/mm3 (4.00-11.30)
[2018-09-22 05:09] LABS: Anion Gap 5 mmol/L (6-16); Blood Urea Nitrogen 8 mg/dL (8-24); Bun/Creatinine Ratio 12.3 (12.0-20.0); CO2, Blood 22 mmol/L (21-32); Calcium, Blood 8.4 mg/dL (8.5-10.1); Chloride, Blood 107 mmol/L (98-108); Creatinine, Blood 0.65 mg/dL (0.60-1.20); Glomerular Filtration Rate >60 (60-); Glucose, Blood 98 mg/dL (70-99); Potassium, Blood 4.3 mmol/L (3.5-5.5); Sodium, Blood 134 mmol/L (136-145)
--- NOTE | 2018-09-22 07:17 | NUR ---
a+o, up walking in isabel, cheerful and cooperative but remains painful (09/19) dispite prescribed medication, call light in reach, saline locked, removed field start, room air, bedside rounds completed with day staff
--- NOTE | 2018-09-22 11:41 | NUR ---
DISCHARGE SUMMARY PT A&OX4. CALM AND COOPERATIVE WITH CARE. PT RESTING IN BED DURING SHIFT. UP ON SIDE OF BED FOR MEALS. PT REPORTS ABD PAIN AT 3/10, DENIES NEEDS FOR PAIN MEDICATION. PT DENIES SOB AND N/V. ADVANCED DIET TO REGULAR, APPEARS TO BE TOLERATING WELL. VSS. NO OTHER ACUTE CHANGES NOTED DURING SHIFT. EDUCATED PT ON DISCHARGE INSTRUCTIONS, MEDICATIONS AND SCHEDULED FOLLOW UP APPOINTMENT WITH PCP FOR TOMORROW, Wednesday09/23/18 AT 9:45 AM. NO NEW MEDICATIONS. PT LEFT ROOM ON FOOT AT 1134. PT STABLE UPON DISCHARGE.
== END 2018-09-22 11:35 | disposition home or self-care (01) | DRG 440 ==
LOC: ER 10:04 → MEDS 11:51 → ENPENDDIS 09-22 11:19 → MEDS 09-22 11:35
PROVIDERS: Emergency Medicine; ADMIT Hospitalist
DX: K85.90 Acute pancreatitis without necrosis or infection, unspecified (principal); E11.9 Type 2 diabetes mellitus without complications; I10 Essential (primary) hypertension; E66.9 Obesity, unspecified; F10.10 Alcohol abuse, uncomplicated; F32.9 Major depressive disorder, single episode, unspecified; F17.210 Nicotine dependence, cigarettes, uncomplicated; Z86.718 Personal history of other venous thrombosis and embolism; Z88.5 Allergy status to narcotic agent; Z88.8 Allergy status to other drugs, medicaments and biological substances; Z79.84 Long term (current) use of oral hypoglycemic drugs; Z79.899 Other long term (current) drug therapy; Z68.35 Body mass index [BMI] 35.0-35.9, adult
CPT/HCPCS: 36415; 80048; 80053; 82330; 82947; 83690; 83735; 84100; 85025; 87081; 94762; 96361; 96374; 96375; 99285-25; G0480; J0360; J1170; J1885; J2405; J3010; J3411; J3475; J3480; J7030; J7042

== ENCOUNTER 2018-12-12 17:21 | Emergency (ER) | payer OTHER ==
[~2018-12-12] VITALS: Ht 172.7 cm; Wt 74.8 kg
[2018-12-12 17:48] LABS: BASOPHILS ABSOLUTE AUTO 0.03 K/mm3 (0.00-0.23); BASOPHILS PERCENT AUTO 0 % (0-2); EOSINOPHILS ABSOLUTE AUTO 0.03 K/mm3 (0.00-0.68); EOSINOPHILS PERCENT AUTO 0 % (0-6); Hematocrit 43.9 % (37.0-53.0); IMMATURE GRAN ABSOLUTE AUTO 0.04 K/mm3 (0.00-0.10); IMMATURE GRAN PERCENT AUTO 0 % (0-1); LYMPHOCYTES ABSOLUTE AUTO 1.66 K/mm3 (0.84-5.20); LYMPHOCYTES PERCENT AUTO 10 % (21-46); MONOCYTES ABSOLUTE AUTO 1.64 K/mm3 (0.16-1.47); MONOCYTES PERCENT AUTO 10 % (4-13); Mean Corpuscular HGB 31.4 pg (26.0-34.0); Mean Corpuscular HGB Conc 34.2 g/dL (31.5-36.5); Mean Corpuscular Volume 92 fL (80-100); Mean Platelet Volume 10.1 fL (9.1-12.4); NEUTROPHILS ABSOLUTE AUTO 13.23 K/mm3 (1.96-9.15); NEUTROPHILS PERCENT AUTO 80 % (41-73); Platelet Count 245 K/mm3 (150-400); RDW Coefficient Variation 13.2 % (11.7-14.2); RDW Standard Deviation 44.9 fL (35.1-46.3); Red Blood Cell Count 4.77 M/mm3 (4.30-5.90); White Blood Cell Count 16.63 K/mm3 (4.00-11.30)
[2018-12-12 18:00] LABS: Alanine Aminotransfer (ALT/SGP 34 U/L (12-78); Albumin, Blood 3.6 g/dL (3.4-5.0); Albumin/Globulin Ratio 0.8 (0.8-1.8); Alk Phos 102 U/L (50-136); Anion Gap 3 mmol/L (6-16); Aspartate Aminotrans (AST/SGOT 62 U/L (12-37); Bilirubin, Total 3.7 mg/dL (0.1-1.0); Blood Urea Nitrogen 10 mg/dL (8-24); Bun/Creatinine Ratio 14.5 (12.0-20.0); CO2, Blood 27 mmol/L (21-32); Calcium, Blood 8.9 mg/dL (8.5-10.1); Chloride, Blood 101 mmol/L (98-108); Creatinine, Blood 0.69 mg/dL (0.60-1.20); Globulin, Blood 4.8 g/dL (2.2-4.0); Glomerular Filtration Rate >60 (60-); Glucose, Blood 141 mg/dL (70-99); Potassium, Blood 4.4 mmol/L (3.5-5.5); Sodium, Blood 131 mmol/L (136-145); Total Protein, Blood 8.4 g/dL (6.4-8.2)
[2018-12-12 20:04] LABS: Source, Urine Clean Catch
[2018-12-12 20:11] LABS: Appearance, Urine Clear (Clear); Bilirubin, Urine Neg (Neg); Blood, Urine 2+ (Neg); Color, Urine Yellow (P-Yellow); Glucose Qualitative, Urine Neg (Neg); Ketones, Urine 1+ (Neg); Leukocyte Esterase, Urine 1+ (Neg); Nitrite, Urine Neg (Neg); Protein, Urine 2+ (Neg); Specific Gravity, Urine 1.005 (1.003-1.022); Urobilinogen, Urine 4+ (Normal)
[2018-12-12 20:23] LABS: Bacteria Few /hpf; Squamous Epithelial Cells Rare /hpf (Few); White Blood Cells, Urine 0-2 /hpf (0-5)
[2018-12-12] MEDS ORDERED: CEFP200 PO (20:56)
[2018-12-12] MEDS ORDERED: Flomax0.4 MG PO (20:56)
[2018-12-12] MEDS ORDERED: Percocet 7.5-31 EACH PO (20:56)
== END 2018-12-12 23:07 | disposition home or self-care (01) ==
LOC: ER 17:21
PROVIDERS: Emergency Medicine
DX: N20.2 Calculus of kidney with calculus of ureter (principal); E11.9 Type 2 diabetes mellitus without complications; I10 Essential (primary) hypertension; D72.829 Elevated white blood cell count, unspecified; F17.200 Nicotine dependence, unspecified, uncomplicated; Z88.8 Allergy status to other drugs, medicaments and biological substances; Z88.5 Allergy status to narcotic agent; Z79.899 Other long term (current) drug therapy; Z79.84 Long term (current) use of oral hypoglycemic drugs; Z79.01 Long term (current) use of anticoagulants
CPT/HCPCS: 74177; 80053; 81001; 83690; 85025; 87086; 96361; 96365-59; 96375; 99284-25; J0696; J1885; J2405; J3010; J7030; Q9967

== ENCOUNTER 2019-03-28 07:23 | Emergency (ER) | payer OTHER ==
[~2019-03-28] VITALS: Ht 172.7 cm; Wt 108.9 kg
[~2019-03-28 07:23] MED LIST changes: +CEFP200 PO; +Flomax0.4 MG PO; +Percocet 7.5-31 EACH PO
== END 2019-03-28 07:55 | disposition home or self-care (01) ==
LOC: ER 07:23
DX: L29.9 Pruritus, unspecified (principal); I10 Essential (primary) hypertension; F41.9 Anxiety disorder, unspecified; E11.9 Type 2 diabetes mellitus without complications; Z88.5 Allergy status to narcotic agent; Z88.8 Allergy status to other drugs, medicaments and biological substances; Z79.84 Long term (current) use of oral hypoglycemic drugs; F32.9 Major depressive disorder, single episode, unspecified; F17.210 Nicotine dependence, cigarettes, uncomplicated
CPT/HCPCS: 99283

== ENCOUNTER 2019-07-17 17:27 | Observation (INO) | payer OTHER ==
[~2019-07-17] VITALS: Ht 172.7 cm; Wt 99.9 kg
[2019-07-17 17:48] LABS: BASOPHILS ABSOLUTE AUTO 0.02 K/mm3 (0.00-0.23); BASOPHILS PERCENT AUTO 0 % (0-2); EOSINOPHILS ABSOLUTE AUTO 0.02 K/mm3 (0.00-0.68); EOSINOPHILS PERCENT AUTO 0 % (0-6); Hematocrit 41.3 % (37.0-53.0); Hemoglobin 14.2 g/dL (13.5-17.5); IMMATURE GRAN ABSOLUTE AUTO 0.02 K/mm3 (0.00-0.10); IMMATURE GRAN PERCENT AUTO 0 % (0-1); LYMPHOCYTES ABSOLUTE AUTO 0.61 K/mm3 (0.84-5.20); LYMPHOCYTES PERCENT AUTO 11 % (21-46); MONOCYTES PERCENT AUTO 13 % (4-13); Mean Corpuscular HGB Conc 34.4 g/dL (31.5-36.5); Mean Corpuscular Volume 102 fL (80-100); Mean Platelet Volume 10.5 fL (9.1-12.4); NEUTROPHILS ABSOLUTE AUTO 4.06 K/mm3 (1.96-9.15); NEUTROPHILS PERCENT AUTO 75 % (41-73); Platelet Count 61 K/mm3 (150-400); RDW Coefficient Variation 12.3 % (11.7-14.2); RDW Standard Deviation 46.4 fL (35.1-46.3); Red Blood Cell Count 4.06 M/mm3 (4.30-5.90); White Blood Cell Count 5.43 K/mm3 (4.00-11.30)
[2019-07-17 18:13] LABS: Alanine Aminotransfer (ALT/SGP 104 U/L (12-78); Albumin, Blood 3.3 g/dL (3.4-5.0); Albumin/Globulin Ratio 0.7 (0.8-1.8); Alk Phos 133 U/L (50-136); Anion Gap 9 mmol/L (6-16); Aspartate Aminotrans (AST/SGOT 261 U/L (12-37); Bilirubin, Total 2.3 mg/dL (0.1-1.0); Blood Urea Nitrogen 10 mg/dL (8-24); Bun/Creatinine Ratio 16.9 (12.0-20.0); CO2, Blood 22 mmol/L (21-32); Calcium, Blood 8.9 mg/dL (8.5-10.1); Chloride, Blood 107 mmol/L (98-108); Creatinine, Blood 0.59 mg/dL (0.60-1.20); Globulin, Blood 4.6 g/dL (2.2-4.0); Glomerular Filtration Rate >60 (60-); Glucose, Blood 117 mg/dL (70-99); Potassium, Blood 3.5 mmol/L (3.5-5.5); Sodium, Blood 138 mmol/L (136-145); Total Protein, Blood 7.9 g/dL (6.4-8.2); Troponin I <0.015 ng/mL (0.000-0.040)
[2019-07-17] MEDS ORDERED: ASPI81CH PO (22:46)
[2019-07-17] MEDS ORDERED: ACET325 PO (22:47)
[2019-07-18 01:34] LABS: CPK Creatine Kinase 211 U/L (39-308); Troponin I <0.015 ng/mL (0.000-0.040)
[2019-07-18 07:09] LABS: CHOL/HDL RATIO 3.7; Cholesterol 166 mg/dL (50-200); HDL Cholesterol 45 mg/dL (>39); LDL/HDL RATIO 2.2; Low Density Lipoprotein Chol 100 mg/dL (0-110); Triglycerides 104 mg/dL (30-160); Very Low Density Lipoprot Chol 20 mg/dL (6-32)
--- NOTE | 2019-07-18 07:19 | NUR ---
07/18/19 0615 PT AWAKE AND C/O ITCHY BACK. NO RASH SEEN BUT RN DID FEEL FEW BUMPS TO UPPER BACK WHERE PLASTIC MATTRESS LAY. RN COVERED MATTRESS WITH CORREA PADS FOR COMFORT. BP ELEVATED THIS AM AND MEDICATED PER JUN. ALSO C/O LEVEL "6" MIDSTERNAL CHEST DISCOMFORT AND WAS MEDICATED PER JUN. PT HAS REFUSED NITROGYCERINE FOR BOTH EPISODES OF C.P INFORMED PT OF TESTS FOR TODAY AND HE HOPES TO GO HOME LATER TODAY. HEART MONITOR HAS REMAINED STABLE AT SR IN THE 60-70'S.
[2019-07-18 09:19] LABS: BASOPHILS ABSOLUTE AUTO 0.01 K/mm3 (0.00-0.23); BASOPHILS PERCENT AUTO 0 % (0-2); EOSINOPHILS ABSOLUTE AUTO 0.05 K/mm3 (0.00-0.68); EOSINOPHILS PERCENT AUTO 1 % (0-6); Hematocrit 39.8 % (37.0-53.0); Hemoglobin 13.7 g/dL (13.5-17.5); IMMATURE GRAN ABSOLUTE AUTO 0.02 K/mm3 (0.00-0.10); IMMATURE GRAN PERCENT AUTO 0 % (0-1); LYMPHOCYTES ABSOLUTE AUTO 1.04 K/mm3 (0.84-5.20); LYMPHOCYTES PERCENT AUTO 21 % (21-46); MONOCYTES ABSOLUTE AUTO 0.64 K/mm3 (0.16-1.47); MONOCYTES PERCENT AUTO 13 % (4-13); Mean Corpuscular HGB 35.1 pg (26.0-34.0); Mean Corpuscular HGB Conc 34.4 g/dL (31.5-36.5); Mean Corpuscular Volume 102 fL (80-100); Mean Platelet Volume 10.2 fL (9.1-12.4); NEUTROPHILS ABSOLUTE AUTO 3.13 K/mm3 (1.96-9.15); NEUTROPHILS PERCENT AUTO 64 % (41-73); RDW Coefficient Variation 12.4 % (11.7-14.2); RDW Standard Deviation 46.4 fL (35.1-46.3); White Blood Cell Count 4.89 K/mm3 (4.00-11.30)
[2019-07-18 09:31] LABS: Platelet Count 50 K/mm3 (150-400)
[2019-07-18 09:33] LABS: Alanine Aminotransfer (ALT/SGP 86 U/L (12-78); Albumin/Globulin Ratio 0.7 (0.8-1.8); Alk Phos 122 U/L (50-136); Anion Gap 7 mmol/L (6-16); Aspartate Aminotrans (AST/SGOT 202 U/L (12-37); Blood Urea Nitrogen 11 mg/dL (8-24); Bun/Creatinine Ratio 19.3 (12.0-20.0); CO2, Blood 24 mmol/L (21-32); CPK Creatine Kinase 197 U/L (39-308); Calcium, Blood 8.4 mg/dL (8.5-10.1); Chloride, Blood 105 mmol/L (98-108); Creatinine, Blood 0.57 mg/dL (0.60-1.20); Globulin, Blood 4.4 g/dL (2.2-4.0); Glomerular Filtration Rate >60 (60-); Glucose, Blood 155 mg/dL (70-99); Potassium, Blood 3.4 mmol/L (3.5-5.5); Sodium, Blood 136 mmol/L (136-145); Total Protein, Blood 7.4 g/dL (6.4-8.2); Troponin I <0.015 ng/mL (0.000-0.040)
[2019-07-18] MEDS ORDERED: NITROGLYCERIN0.4 M1 SL (11:20)
[2019-07-18] MEDS ORDERED: ONDA4ODT SL (11:21)
--- NOTE | 2019-07-18 11:44 | NUR ---
DISCHARGE ECHO & ABD US COMPLETED THIS AM. CE'S NEGATIVE. PT STATE NO CHEST PAIN, STATE CONTINUING MID CHEST "PRESSURE", STATE BELIEVES R/T STRESS/ANXIETY. STATE NO SOB, NO N/T EXTREMITIES. STATE FEELING IMPROVED. DR WATERS IN TO ASSESS HIM, REVIEW RESULTS OF TESTS, STATE OK TO GO HOME TODAY & FOLLOW-UP W CARDIOLGY TOMMORROW, SHE MAKE APPT. TELE APPT SCHEDULED FOR TOMORROW W PCP. NEW SCRIPT ORDERS FAXED TO [facility]/PT REQUEST. IV D/C INTACT. D/C INSTRUCT REVIEWED. PT AMBULATE IND FROM HOSP, PLEASANT/APPRECIATIVE.
== END 2019-07-18 12:03 | disposition home or self-care (01) ==
LOC: ER 17:27 → MEDS 17:28 → ER 20:48 → MEDS 21:37 → ENPENDDIS 07-18 11:30 → MEDS 07-18 12:03
PROVIDERS: Emergency Medicine; ADMIT Internal Medicine
DX: I16.0 Hypertensive urgency (principal); I10 Essential (primary) hypertension; E11.9 Type 2 diabetes mellitus without complications; E66.9 Obesity, unspecified; F41.9 Anxiety disorder, unspecified; F32.9 Major depressive disorder, single episode, unspecified; D69.6 Thrombocytopenia, unspecified; K52.9 Noninfective gastroenteritis and colitis, unspecified; F17.210 Nicotine dependence, cigarettes, uncomplicated; I25.10 Atherosclerotic heart disease of native coronary artery without angina pectoris; Z95.1 Presence of aortocoronary bypass graft; Z79.899 Other long term (current) drug therapy; Z88.5 Allergy status to narcotic agent; Z88.8 Allergy status to other drugs, medicaments and biological substances; Z87.19 Personal history of other diseases of the digestive system; K85.90 Acute pancreatitis without necrosis or infection, unspecified; Z68.30 Body mass index [BMI] 30.0-30.9, adult
CPT/HCPCS: 36415; 71046; 76705; 80053; 80061; 82550; 83690; 83880; 84484; 85025; 93005; 93010; 93306; 96372; 96374; 96375; 96376; 99285-25; A9270-GY; G0378; J0360; J1650; J2270; J2405; J3010; J7030

== ENCOUNTER 2019-10-02 18:04 | Emergency (ER) | payer OTHER ==
[~2019-10-02] VITALS: Ht 172.7 cm; Wt 90.7 kg
[~2019-10-02 18:04] MED LIST changes: +ACET325 PO; +ASPI81CH PO; +NITROGLYCERIN0.4 M1 SL; +ONDA4ODT SL
[2019-10-02 18:37] LABS: BASOPHILS ABSOLUTE AUTO 0.03 K/mm3 (0.00-0.23); BASOPHILS PERCENT AUTO 1 % (0-2); EOSINOPHILS PERCENT AUTO 0 % (0-6); Hematocrit 43.7 % (37.0-53.0); Hemoglobin 14.6 g/dL (13.5-17.5); IMMATURE GRAN ABSOLUTE AUTO 0.02 K/mm3 (0.00-0.10); IMMATURE GRAN PERCENT AUTO 0 % (0-1); LYMPHOCYTES PERCENT AUTO 11 % (21-46); MONOCYTES ABSOLUTE AUTO 0.37 K/mm3 (0.16-1.47); MONOCYTES PERCENT AUTO 8 % (4-13); Mean Corpuscular HGB 32.4 pg (26.0-34.0); Mean Corpuscular HGB Conc 33.4 g/dL (31.5-36.5); Mean Corpuscular Volume 97 fL (80-100); Mean Platelet Volume 9.3 fL (9.1-12.4); NEUTROPHILS PERCENT AUTO 80 % (41-73); Platelet Count 93 K/mm3 (150-400); RDW Coefficient Variation 12.4 % (11.7-14.2); RDW Standard Deviation 44.6 fL (35.1-46.3); Red Blood Cell Count 4.51 M/mm3 (4.30-5.90); White Blood Cell Count 4.62 K/mm3 (4.00-11.30)
[2019-10-02 19:24] LABS: Alanine Aminotransfer (ALT/SGP 59 U/L (12-78); Albumin, Blood 3.6 g/dL (3.4-5.0); Albumin/Globulin Ratio 0.8 (0.8-1.8); Alk Phos 135 U/L (50-136); Anion Gap 11 mmol/L (6-16); Aspartate Aminotrans (AST/SGOT 106 U/L (12-37); Bilirubin, Total 2.2 mg/dL (0.1-1.0); Blood Urea Nitrogen 8 mg/dL (8-24); Bun/Creatinine Ratio 13.6 (12.0-20.0); CO2, Blood 21 mmol/L (21-32); Calcium, Blood 8.9 mg/dL (8.5-10.1); Chloride, Blood 107 mmol/L (98-108); Creatinine, Blood 0.59 mg/dL (0.60-1.20); Globulin, Blood 4.7 g/dL (2.2-4.0); Glomerular Filtration Rate >60 (60-); Glucose, Blood 118 mg/dL (70-99); Potassium, Blood 3.6 mmol/L (3.5-5.5); Sodium, Blood 139 mmol/L (136-145); Total Protein, Blood 8.3 g/dL (6.4-8.2); Troponin I <0.015 ng/mL (0.000-0.040)
[2019-10-02] MEDS ORDERED: ANXIETY MEDICATION (20:00)
[2019-10-02 22:49] LABS: CPK Creatine Kinase 143 U/L (39-308)
[2019-10-02] MEDS ORDERED: ONDA4ODT MM (23:09)
== END 2019-10-02 23:28 | disposition home or self-care (01) ==
LOC: ER 18:04
PROVIDERS: Physician Assistant
DX: R00.2 Palpitations (principal); R42 Dizziness and giddiness; R74.8 Abnormal levels of other serum enzymes; R79.89 Other specified abnormal findings of blood chemistry; Z88.5 Allergy status to narcotic agent; Z88.8 Allergy status to other drugs, medicaments and biological substances; Z79.82 Long term (current) use of aspirin; Z79.899 Other long term (current) drug therapy; F41.9 Anxiety disorder, unspecified; I10 Essential (primary) hypertension; E11.9 Type 2 diabetes mellitus without complications; F32.9 Major depressive disorder, single episode, unspecified; F17.200 Nicotine dependence, unspecified, uncomplicated
CPT/HCPCS: 71046; 80053; 82550; 83690; 83880; 84484; 85025; 93005; 93010; 96374; 96375; 99285-25; J0360; J1200; J2765

== ENCOUNTER 2019-11-20 08:08 | Emergency (ER) | payer OTHER ==
[~2019-11-20] VITALS: Ht 172.7 cm; Wt 90.7 kg
[2019-11-20 08:40] LABS: BASOPHILS ABSOLUTE AUTO 0.06 K/mm3 (0.00-0.23); BASOPHILS PERCENT AUTO 1 % (0-2); EOSINOPHILS ABSOLUTE AUTO 0.22 K/mm3 (0.00-0.68); EOSINOPHILS PERCENT AUTO 3 % (0-6); Hematocrit 45.8 % (37.0-53.0); Hemoglobin 14.7 g/dL (13.5-17.5); IMMATURE GRAN ABSOLUTE AUTO 0.02 K/mm3 (0.00-0.10); IMMATURE GRAN PERCENT AUTO 0 % (0-1); LYMPHOCYTES ABSOLUTE AUTO 2.36 K/mm3 (0.84-5.20); LYMPHOCYTES PERCENT AUTO 33 % (21-46); MONOCYTES ABSOLUTE AUTO 0.53 K/mm3 (0.16-1.47); MONOCYTES PERCENT AUTO 8 % (4-13); Mean Corpuscular HGB 32.4 pg (26.0-34.0); Mean Corpuscular HGB Conc 32.1 g/dL (31.5-36.5); Mean Corpuscular Volume 101 fL (80-100); Mean Platelet Volume 8.9 fL (9.1-12.4); NEUTROPHILS ABSOLUTE AUTO 3.91 K/mm3 (1.96-9.15); NEUTROPHILS PERCENT AUTO 55 % (41-73); Platelet Count 239 K/mm3 (150-400); RDW Coefficient Variation 12.9 % (11.7-14.2); RDW Standard Deviation 48.4 fL (35.1-46.3); Red Blood Cell Count 4.54 M/mm3 (4.30-5.90)
[2019-11-20 09:08] LABS: Alanine Aminotransfer (ALT/SGP 35 U/L (12-78); Albumin, Blood 3.2 g/dL (3.4-5.0); Albumin/Globulin Ratio 0.7 (0.8-1.8); Alk Phos 95 U/L (50-136); Anion Gap 5 mmol/L (6-16); Aspartate Aminotrans (AST/SGOT 49 U/L (12-37); Bilirubin, Total 0.7 mg/dL (0.1-1.0); Blood Urea Nitrogen 7 mg/dL (8-24); Bun/Creatinine Ratio 9.3 (12.0-20.0); CO2, Blood 25 mmol/L (21-32); Calcium, Blood 8.3 mg/dL (8.5-10.1); Chloride, Blood 112 mmol/L (98-108); Creatinine, Blood 0.76 mg/dL (0.60-1.20); Globulin, Blood 4.6 g/dL (2.2-4.0); Glomerular Filtration Rate >60 (60-); Glucose, Blood 104 mg/dL (70-99); Potassium, Blood 4.1 mmol/L (3.5-5.5); Sodium, Blood 142 mmol/L (136-145); Total Protein, Blood 7.8 g/dL (6.4-8.2)
[2019-11-20 09:45] LABS: Source, Urine Clean Catch
[2019-11-20 09:50] LABS: Appearance, Urine Clear (Clear); Bilirubin, Urine Neg (Neg); Blood, Urine Neg (Neg); Color, Urine Yellow (P-Yellow); Glucose Qualitative, Urine Neg (Neg); Ketones, Urine Neg (Neg); Leukocyte Esterase, Urine Neg (Neg); Nitrite, Urine Neg (Neg); Protein, Urine 1+ (Neg); Specific Gravity, Urine 1.015 (1.003-1.022); Urobilinogen, Urine 1+ (Normal)
[2019-11-20] MEDS ORDERED: Norco 5-325 Ta1 EACH PO (10:27)
[2019-11-20] MEDS ORDERED: Roxicodone5 MG PO (10:47)
== END 2019-11-20 10:53 | disposition home or self-care (01) ==
LOC: ER 08:08
PROVIDERS: Physician Assistant
DX: K74.60 Unspecified cirrhosis of liver (principal); Z88.5 Allergy status to narcotic agent; Z88.8 Allergy status to other drugs, medicaments and biological substances; Z79.899 Other long term (current) drug therapy; I10 Essential (primary) hypertension; E11.9 Type 2 diabetes mellitus without complications; F41.9 Anxiety disorder, unspecified; F32.9 Major depressive disorder, single episode, unspecified; F17.210 Nicotine dependence, cigarettes, uncomplicated
CPT/HCPCS: 36415; 74176; 80053; 83690; 85025; 96374; 96375; 99284-25; A9270-GY; J1885; J3010

== ENCOUNTER 2020-09-26 17:07 | Emergency (ER) | payer OTHER ==
[~2020-09-26] VITALS: Ht 172.7 cm; Wt 102.1 kg
[~2020-09-26 17:07] MED LIST changes: +Roxicodone5 MG PO
[2020-09-26 18:02] LABS: BASOPHILS ABSOLUTE AUTO 0.02 K/mm3 (0.00-0.23); BASOPHILS PERCENT AUTO 0 % (0-2); EOSINOPHILS ABSOLUTE AUTO 0.01 K/mm3 (0.00-0.68); EOSINOPHILS PERCENT AUTO 0 % (0-6); Hemoglobin 16.9 g/dL (13.5-17.5); IMMATURE GRAN ABSOLUTE AUTO 0.02 K/mm3 (0.00-0.10); IMMATURE GRAN PERCENT AUTO 0 % (0-1); LYMPHOCYTES ABSOLUTE AUTO 1.16 K/mm3 (0.84-5.20); LYMPHOCYTES PERCENT AUTO 14 % (21-46); MONOCYTES ABSOLUTE AUTO 0.85 K/mm3 (0.16-1.47); MONOCYTES PERCENT AUTO 10 % (4-13); Mean Corpuscular HGB 34.5 pg (26.0-34.0); Mean Corpuscular Volume 96 fL (80-100); Mean Platelet Volume 8.7 fL (9.1-12.4); NEUTROPHILS ABSOLUTE AUTO 6.44 K/mm3 (1.96-9.15); NEUTROPHILS PERCENT AUTO 76 % (41-73); Platelet Count 217 K/mm3 (150-400); RDW Coefficient Variation 12.7 % (11.7-14.2); RDW Standard Deviation 45.1 fL (35.1-46.3)
[2020-09-26 18:26] LABS: Alanine Aminotransfer (ALT/SGP 64 U/L (12-78); Albumin, Blood 3.9 g/dL (3.4-5.0); Albumin/Globulin Ratio 0.9 (0.8-1.8); Alk Phos 143 U/L (50-136); Anion Gap 10 mmol/L (6-16); Aspartate Aminotrans (AST/SGOT 79 U/L (12-37); Bilirubin, Total 2.5 mg/dL (0.1-1.0); Blood Urea Nitrogen 12 mg/dL (8-24); CO2, Blood 21 mmol/L (21-32); Calcium, Blood 9.3 mg/dL (8.5-10.1); Chloride, Blood 106 mmol/L (98-108); Creatinine, Blood 0.75 mg/dL (0.60-1.20); Globulin, Blood 4.5 g/dL (2.2-4.0); Glomerular Filtration Rate >60 (60-); Glucose, Blood 114 mg/dL (70-99); Potassium, Blood 3.6 mmol/L (3.5-5.5); Sodium, Blood 137 mmol/L (136-145); Total Protein, Blood 8.4 g/dL (6.4-8.2); Troponin I <0.015 ng/mL (0.000-0.040)
== END 2020-09-26 23:32 | disposition home or self-care (01) ==
LOC: ER 17:07
PROVIDERS: Physician Assistant
DX: I10 Essential (primary) hypertension (principal); E11.9 Type 2 diabetes mellitus without complications; F17.210 Nicotine dependence, cigarettes, uncomplicated; Z88.5 Allergy status to narcotic agent; Z88.8 Allergy status to other drugs, medicaments and biological substances; Z79.82 Long term (current) use of aspirin; Z79.899 Other long term (current) drug therapy
CPT/HCPCS: 36415; 70450; 80053; 84484; 85025; 93005; 93010; 96374; 96375; 99284-25; J0360; J1200

== ENCOUNTER 2021-05-06 16:50 | Emergency (ER) | payer OTHER ==
[~2021-05-06] VITALS: Ht 175.3 cm; Wt 95.2 kg
[2021-05-06 17:19] LABS: BASOPHILS ABSOLUTE AUTO 0.04 K/mm3 (0.00-0.23); BASOPHILS PERCENT AUTO 1 % (0-2); EOSINOPHILS PERCENT AUTO 1 % (0-6); Hematocrit 49.4 % (37.0-53.0); IMMATURE GRAN ABSOLUTE AUTO 0.02 K/mm3 (0.00-0.10); IMMATURE GRAN PERCENT AUTO 0 % (0-1); LYMPHOCYTES ABSOLUTE AUTO 3.42 K/mm3 (0.84-5.20); LYMPHOCYTES PERCENT AUTO 40 % (21-46); MONOCYTES ABSOLUTE AUTO 0.96 K/mm3 (0.16-1.47); MONOCYTES PERCENT AUTO 11 % (4-13); Mean Corpuscular HGB 33.9 pg (26.0-34.0); Mean Corpuscular HGB Conc 34.4 g/dL (31.5-36.5); Mean Corpuscular Volume 98 fL (80-100); Mean Platelet Volume 8.9 fL (9.1-12.4); NEUTROPHILS ABSOLUTE AUTO 3.93 K/mm3 (1.96-9.15); NEUTROPHILS PERCENT AUTO 46 % (41-73); Platelet Count 222 K/mm3 (150-400); RDW Coefficient Variation 13.3 % (11.7-14.2); RDW Standard Deviation 48.5 fL (35.1-46.3); Red Blood Cell Count 5.02 M/mm3 (4.30-5.90); White Blood Cell Count 8.47 K/mm3 (4.00-11.30)
[2021-05-06 17:43] LABS: Alanine Aminotransfer (ALT/SGP 41 U/L (12-78); Albumin, Blood 3.5 g/dL (3.4-5.0); Albumin/Globulin Ratio 0.9 (0.8-1.8); Alk Phos 86 U/L (50-136); Anion Gap 7 mmol/L (6-16); Aspartate Aminotrans (AST/SGOT 51 U/L (12-37); Bilirubin, Total 0.6 mg/dL (0.1-1.0); Blood Urea Nitrogen 12 mg/dL (8-24); Bun/Creatinine Ratio 13.2 (12.0-20.0); CO2, Blood 27 mmol/L (21-32); Chloride, Blood 109 mmol/L (98-108); Creatinine, Blood 0.91 mg/dL (0.60-1.20); Glomerular Filtration Rate >60 (60-); Glucose, Blood 132 mg/dL (70-99); Potassium, Blood 3.5 mmol/L (3.5-5.5); Sodium, Blood 143 mmol/L (136-145); Total Protein, Blood 7.5 g/dL (6.4-8.2); Troponin I <0.015 ng/mL (0.000-0.040)
[2021-05-06] MEDS ORDERED: TRAZ50 PO (18:15)
== END 2021-05-06 18:20 | disposition home or self-care (01) ==
LOC: ER 16:50
PROVIDERS: Physician Assistant
DX: R42 Dizziness and giddiness (principal); G47.00 Insomnia, unspecified; F17.210 Nicotine dependence, cigarettes, uncomplicated; I10 Essential (primary) hypertension; E11.9 Type 2 diabetes mellitus without complications; Z88.5 Allergy status to narcotic agent; Z79.82 Long term (current) use of aspirin; Z79.899 Other long term (current) drug therapy; Z88.8 Allergy status to other drugs, medicaments and biological substances
CPT/HCPCS: 71046; 80053; 82947; 84484; 85025; 93005; 93010; 99284-25

== ENCOUNTER → 2021-06-17 | Outpatient (CLI) | payer OTHER ==
[~2021-06-17] MED LIST changes: +TRAZ50 PO
== END | disposition home or self-care (01) ==
LOC: LAB SHORT 12:30 → LAB 12:30
DX: L97.522 Non-pressure chronic ulcer of other part of left foot with fat layer exposed (principal)
CPT/HCPCS: 87070; 87075; 87077; 87147; 87186; 87205

== ENCOUNTER 2021-09-11 09:21 | Observation (INO) | payer OTHER ==
[~2021-09-11] VITALS: Ht 172.7 cm; Wt 101.7 kg
[2021-09-11 09:58] LABS: BASOPHILS ABSOLUTE AUTO 0.03 K/mm3 (0.00-0.23); BASOPHILS PERCENT AUTO 1 % (0-2); EOSINOPHILS ABSOLUTE AUTO 0.11 K/mm3 (0.00-0.68); EOSINOPHILS PERCENT AUTO 2 % (0-6); Hematocrit 45.1 % (37.0-53.0); Hemoglobin 15.5 g/dL (13.5-17.5); IMMATURE GRAN ABSOLUTE AUTO 0.01 K/mm3 (0.00-0.10); IMMATURE GRAN PERCENT AUTO 0 % (0-1); LYMPHOCYTES ABSOLUTE AUTO 1.84 K/mm3 (0.84-5.20); LYMPHOCYTES PERCENT AUTO 39 % (21-46); MONOCYTES ABSOLUTE AUTO 0.44 K/mm3 (0.16-1.47); MONOCYTES PERCENT AUTO 9 % (4-13); Mean Corpuscular HGB 33.7 pg (26.0-34.0); Mean Corpuscular HGB Conc 34.4 g/dL (31.5-36.5); Mean Corpuscular Volume 98 fL (80-100); Mean Platelet Volume 9.3 fL (9.1-12.4); NEUTROPHILS ABSOLUTE AUTO 2.29 K/mm3 (1.96-9.15); NEUTROPHILS PERCENT AUTO 49 % (41-73); Platelet Count 182 K/mm3 (150-400); RDW Coefficient Variation 12.3 % (11.7-14.2); RDW Standard Deviation 44.6 fL (35.1-46.3); White Blood Cell Count 4.72 K/mm3 (4.00-11.30)
[2021-09-11 10:16] LABS: Albumin, Blood 3.4 g/dL (3.4-5.0); Albumin/Globulin Ratio 0.8 (0.8-1.8); Bilirubin, Total 0.9 mg/dL (0.1-1.0); Bun/Creatinine Ratio 20.5 (12.0-20.0); Calcium, Blood 8.8 mg/dL (8.5-10.1); Creatinine, Blood 0.73 mg/dL (0.60-1.20); Globulin, Blood 4.3 g/dL (2.2-4.0); Potassium, Blood 3.5 mmol/L (3.5-5.5); Total Protein, Blood 7.7 g/dL (6.4-8.2)
[2021-09-12 05:25] LABS: Hematocrit 43.5 % (37.0-53.0); Hemoglobin 14.9 g/dL (13.5-17.5); Mean Corpuscular HGB 33.4 pg (26.0-34.0); Mean Corpuscular HGB Conc 34.3 g/dL (31.5-36.5); Mean Corpuscular Volume 98 fL (80-100); Mean Platelet Volume 9.5 fL (9.1-12.4); Platelet Count 141 K/mm3 (150-400); RDW Coefficient Variation 11.9 % (11.7-14.2); RDW Standard Deviation 43.4 fL (35.1-46.3); Red Blood Cell Count 4.46 M/mm3 (4.30-5.90); White Blood Cell Count 7.22 K/mm3 (4.00-11.30)
[2021-09-12 06:02] LABS: Bun/Creatinine Ratio 18.7 (12.0-20.0); Calcium, Blood 8.3 mg/dL (8.5-10.1); Creatinine, Blood 0.59 mg/dL (0.60-1.20); Potassium, Blood 3.3 mmol/L (3.5-5.5)
[2021-09-12] MEDS ORDERED: FAMO20 PO (11:02)
[2021-09-12] MEDS ORDERED: DIAZ5 PO (11:02)
[2021-09-12] MEDS ORDERED: LISINOPRIL-HCT1 EACH PO (11:04)
== END 2021-09-12 11:30 | disposition home or self-care (01) ==
LOC: ER 09:21 → MEDS 09:22
PROVIDERS: Emergency Medicine; Nurse Practitioner Acute Care; ADMIT Internal Medicine
DX: I20.9 Angina pectoris, unspecified (principal); F10.239 Alcohol dependence with withdrawal, unspecified; I10 Essential (primary) hypertension; E11.9 Type 2 diabetes mellitus without complications; F17.210 Nicotine dependence, cigarettes, uncomplicated; I16.0 Hypertensive urgency; G51.0 Bell's palsy; Z79.82 Long term (current) use of aspirin; Z88.8 Allergy status to other drugs, medicaments and biological substances; Z88.5 Allergy status to narcotic agent; Z95.1 Presence of aortocoronary bypass graft; Z79.84 Long term (current) use of oral hypoglycemic drugs; F41.9 Anxiety disorder, unspecified; F32.A Depression, unspecified; K74.60 Unspecified cirrhosis of liver; R00.0 Tachycardia, unspecified
CPT/HCPCS: 36415; 71045; 71260; 80048; 80053; 82947; 83735; 84484; 85025; 85027; 85379; 93005; 93010; 94640; 94664; 94760; 94762; 99285-25; A9270; J1650; J2405; J7030; Q9967

== ENCOUNTER 2022-02-03 01:41 | Emergency (ER) | payer OTHER ==
[~2022-02-03] VITALS: Ht 172.7 cm; Wt 90.7 kg
[~2022-02-03 01:41] MED LIST changes: +DIAZ5 PO; +FAMO20 PO; +LISINOPRIL-HCT1 EACH PO
[2022-02-03 03:25] LABS: BASOPHILS ABSOLUTE AUTO 0.04 K/mm3 (0.00-0.23); BASOPHILS PERCENT AUTO 1 % (0-2); EOSINOPHILS ABSOLUTE AUTO 0.16 K/mm3 (0.00-0.68); EOSINOPHILS PERCENT AUTO 3 % (0-6); Hematocrit 43.8 % (37.0-53.0); Hemoglobin 15.3 g/dL (13.5-17.5); IMMATURE GRAN ABSOLUTE AUTO 0.01 K/mm3 (0.00-0.10); IMMATURE GRAN PERCENT AUTO 0 % (0-1); LYMPHOCYTES ABSOLUTE AUTO 1.99 K/mm3 (0.84-5.20); LYMPHOCYTES PERCENT AUTO 36 % (21-46); MONOCYTES ABSOLUTE AUTO 0.69 K/mm3 (0.16-1.47); MONOCYTES PERCENT AUTO 12 % (4-13); Mean Corpuscular HGB 34.6 pg (26.0-34.0); Mean Corpuscular HGB Conc 34.9 g/dL (31.5-36.5); Mean Corpuscular Volume 99 fL (80-100); Mean Platelet Volume 9.4 fL (9.1-12.4); NEUTROPHILS ABSOLUTE AUTO 2.72 K/mm3 (1.96-9.15); NEUTROPHILS PERCENT AUTO 48 % (41-73); Platelet Count 112 K/mm3 (150-400); RDW Coefficient Variation 13.1 % (11.7-14.2); RDW Standard Deviation 48.4 fL (35.1-46.3); Red Blood Cell Count 4.42 M/mm3 (4.30-5.90); White Blood Cell Count 5.61 K/mm3 (4.00-11.30)
[2022-02-03 04:02] LABS: Salicylate 3.2 mg/dL (2.8-20.0)
[2022-02-03 04:22] LABS: Acetaminophen, Random <2.0 ug/mL (10.0-30.0); Alanine Aminotransfer (ALT/SGP 84 U/L (12-78); Albumin, Blood 3.3 g/dL (3.4-5.0); Albumin/Globulin Ratio 0.8 (0.8-1.8); Alk Phos 106 U/L (50-136); Anion Gap 11 mmol/L (6-16); Aspartate Aminotrans (AST/SGOT 142 U/L (12-37); Blood Urea Nitrogen 9 mg/dL (8-24); Bun/Creatinine Ratio 11.8 (12.0-20.0); CO2, Blood 25 mmol/L (21-32); Calcium, Blood 8.4 mg/dL (8.5-10.1); Chloride, Blood 108 mmol/L (98-108); Creatinine, Blood 0.76 mg/dL (0.60-1.20); Ethanol (Alcohol), Blood, Med 328 mg/dL; Globulin, Blood 4.2 g/dL (2.2-4.0); Glomerular Filtration Rate 103 (60-); Glucose, Blood 108 mg/dL (70-99); Potassium, Blood 3.1 mmol/L (3.5-5.5); Sodium, Blood 144 mmol/L (136-145); Total Protein, Blood 7.5 g/dL (6.4-8.2)
== END 2022-02-03 16:41 | disposition home or self-care (01) ==
LOC: ER 01:41
PROVIDERS: Student in an Organized Health Care Education/Training Program
DX: F10.129 Alcohol abuse with intoxication, unspecified (principal); F32.A Depression, unspecified; I10 Essential (primary) hypertension; E11.9 Type 2 diabetes mellitus without complications; F17.210 Nicotine dependence, cigarettes, uncomplicated; G51.0 Bell's palsy; Z88.8 Allergy status to other drugs, medicaments and biological substances; Z88.5 Allergy status to narcotic agent; Z79.899 Other long term (current) drug therapy; Z79.82 Long term (current) use of aspirin
CPT/HCPCS: 36415; 80053; 85025; A9270; G0480

== ENCOUNTER 2022-05-14 13:17 | Emergency (ER) | payer OTHER ==
[~2022-05-14] VITALS: Ht 177.8 cm; Wt 90.7 kg
[~2022-05-14 13:17] MED LIST changes: +ATOR40TA PO; +LOSA50 PO; +MAGNESIUM OXID400 M1 PO
[2022-05-14 14:42] LABS: BASOPHILS ABSOLUTE AUTO 0.05 K/mm3 (0.00-0.23); BASOPHILS PERCENT AUTO 1 % (0-2); EOSINOPHILS ABSOLUTE AUTO 0.05 K/mm3 (0.00-0.68); EOSINOPHILS PERCENT AUTO 1 % (0-6); Hematocrit 46.5 % (37.0-53.0); Hemoglobin 16.1 g/dL (13.5-17.5); IMMATURE GRAN ABSOLUTE AUTO 0.01 K/mm3 (0.00-0.10); IMMATURE GRAN PERCENT AUTO 0 % (0-1); LYMPHOCYTES ABSOLUTE AUTO 1.73 K/mm3 (0.84-5.20); LYMPHOCYTES PERCENT AUTO 30 % (21-46); MONOCYTES ABSOLUTE AUTO 0.51 K/mm3 (0.16-1.47); MONOCYTES PERCENT AUTO 9 % (4-13); Mean Corpuscular HGB 34.5 pg (26.0-34.0); Mean Corpuscular HGB Conc 34.6 g/dL (31.5-36.5); Mean Corpuscular Volume 100 fL (80-100); Mean Platelet Volume 9.1 fL (9.1-12.4); NEUTROPHILS PERCENT AUTO 60 % (41-73); Platelet Count 167 K/mm3 (150-400); RDW Coefficient Variation 13.6 % (11.7-14.2); RDW Standard Deviation 50.6 fL (35.1-46.3); Red Blood Cell Count 4.66 M/mm3 (4.30-5.90); White Blood Cell Count 5.85 K/mm3 (4.00-11.30)
[2022-05-14 15:05] LABS: Albumin, Blood 3.6 g/dL (3.4-5.0); Albumin/Globulin Ratio 0.8 (0.8-1.8); Bun/Creatinine Ratio 13.2 (12.0-20.0); Calcium, Blood 8.6 mg/dL (8.5-10.1); Creatinine, Blood 0.84 mg/dL (0.60-1.20); Globulin, Blood 4.5 g/dL (2.2-4.0); Potassium, Blood 3.3 mmol/L (3.5-5.5); Total Protein, Blood 8.1 g/dL (6.4-8.2)
[2022-05-14] MEDS ORDERED: GABA300 PO ×2 (16:09→16:10)
[2022-05-14] MEDS ORDERED: Naltrexone HCl50 MG PO (16:09)
== END 2022-05-14 16:37 | disposition home or self-care (01) ==
LOC: ER 13:17
PROVIDERS: Student in an Organized Health Care Education/Training Program
DX: F10.229 Alcohol dependence with intoxication, unspecified (principal); Y90.8 Blood alcohol level of 240 mg/100 ml or more; I10 Essential (primary) hypertension; E11.9 Type 2 diabetes mellitus without complications; F17.210 Nicotine dependence, cigarettes, uncomplicated; Z88.8 Allergy status to other drugs, medicaments and biological substances; Z88.5 Allergy status to narcotic agent; Z79.899 Other long term (current) drug therapy; Z79.82 Long term (current) use of aspirin
CPT/HCPCS: 80053; 85025; 93005; 93010; 96374; 99284-25; G0480; J1885

== ENCOUNTER 2022-06-03 10:47 | Emergency (ER) | payer OTHER ==
[~2022-06-03] VITALS: Ht 185.4 cm; Wt 99.8 kg
[~2022-06-03 10:47] MED LIST changes: +Naltrexone HCl50 MG PO
[2022-06-03 10:58] LABS: BASOPHILS ABSOLUTE AUTO 0.03 K/mm3 (0.00-0.23); BASOPHILS PERCENT AUTO 1 % (0-2); EOSINOPHILS ABSOLUTE AUTO 0.15 K/mm3 (0.00-0.68); EOSINOPHILS PERCENT AUTO 4 % (0-6); Hematocrit 35.4 % (37.0-53.0); Hemoglobin 12.2 g/dL (13.5-17.5); IMMATURE GRAN ABSOLUTE AUTO 0.01 K/mm3 (0.00-0.10); IMMATURE GRAN PERCENT AUTO 0 % (0-1); LYMPHOCYTES ABSOLUTE AUTO 1.07 K/mm3 (0.84-5.20); LYMPHOCYTES PERCENT AUTO 25 % (21-46); MONOCYTES PERCENT AUTO 17 % (4-13); Mean Corpuscular HGB Conc 34.5 g/dL (31.5-36.5); Mean Corpuscular Volume 101 fL (80-100); NEUTROPHILS ABSOLUTE AUTO 2.29 K/mm3 (1.96-9.15); NEUTROPHILS PERCENT AUTO 54 % (41-73); Platelet Count 93 K/mm3 (150-400); RDW Coefficient Variation 13.1 % (11.7-14.2); RDW Standard Deviation 48.4 fL (35.1-46.3); Red Blood Cell Count 3.49 M/mm3 (4.30-5.90); White Blood Cell Count 4.25 K/mm3 (4.00-11.30)
[2022-06-03 11:31] LABS: Albumin, Blood 2.8 g/dL (3.4-5.0); Albumin/Globulin Ratio 0.8 (0.8-1.8); Bilirubin, Total 1.1 mg/dL (0.1-1.0); Bun/Creatinine Ratio 19.1 (12.0-20.0); Calcium, Blood 8.4 mg/dL (8.5-10.1); Creatinine, Blood 0.73 mg/dL (0.60-1.20); Globulin, Blood 3.5 g/dL (2.2-4.0); Potassium, Blood 3.7 mmol/L (3.5-5.5); Total Protein, Blood 6.3 g/dL (6.4-8.2)
== END 2022-06-03 13:10 | disposition home or self-care (01) ==
LOC: ER 10:47
PROVIDERS: Emergency Medicine
DX: E86.0 Dehydration (principal); R53.83 Other fatigue; F10.20 Alcohol dependence, uncomplicated; I10 Essential (primary) hypertension; E11.9 Type 2 diabetes mellitus without complications; F17.210 Nicotine dependence, cigarettes, uncomplicated; Z88.8 Allergy status to other drugs, medicaments and biological substances; Z88.6 Allergy status to analgesic agent; Z88.5 Allergy status to narcotic agent; Z79.899 Other long term (current) drug therapy; Z79.82 Long term (current) use of aspirin
CPT/HCPCS: 80053; 84484; 85025; 93005; 93010; 96361; 96374; 99285-25; A9270; J3475; J7030

== ENCOUNTER 2022-06-04 05:43 | Inpatient (IN) | payer OTHER ==
[~2022-06-04] VITALS: Ht 175.3 cm; Wt 95.5 kg
[2022-06-04 06:17] LABS: BASOPHILS ABSOLUTE AUTO 0.04 K/mm3 (0.00-0.23); BASOPHILS PERCENT AUTO 1 % (0-2); EOSINOPHILS ABSOLUTE AUTO 0.17 K/mm3 (0.00-0.68); EOSINOPHILS PERCENT AUTO 3 % (0-6); Hematocrit 36.8 % (37.0-53.0); Hemoglobin 12.5 g/dL (13.5-17.5); IMMATURE GRAN ABSOLUTE AUTO 0.02 K/mm3 (0.00-0.10); IMMATURE GRAN PERCENT AUTO 0 % (0-1); LYMPHOCYTES PERCENT AUTO 21 % (21-46); MONOCYTES ABSOLUTE AUTO 0.69 K/mm3 (0.16-1.47); MONOCYTES PERCENT AUTO 13 % (4-13); Mean Corpuscular Volume 103 fL (80-100); Mean Platelet Volume 10.3 fL (9.1-12.4); NEUTROPHILS PERCENT AUTO 61 % (41-73); Platelet Count 91 K/mm3 (150-400); RDW Coefficient Variation 12.9 % (11.7-14.2); RDW Standard Deviation 49.1 fL (35.1-46.3); Red Blood Cell Count 3.57 M/mm3 (4.30-5.90); White Blood Cell Count 5.22 K/mm3 (4.00-11.30)
[2022-06-04 06:27] LABS: Albumin, Blood 2.9 g/dL (3.4-5.0); Albumin/Globulin Ratio 0.8 (0.8-1.8); Bun/Creatinine Ratio 19.6 (12.0-20.0); Calcium, Blood 8.6 mg/dL (8.5-10.1); Creatinine, Blood 0.66 mg/dL (0.60-1.20); Globulin, Blood 3.5 g/dL (2.2-4.0); Potassium, Blood 3.7 mmol/L (3.5-5.5); Total Protein, Blood 6.4 g/dL (6.4-8.2)
--- NOTE | 2022-06-04 15:20 | NUR ---
SHIFT SUMMARY 1035 RECEIVED PT TO RM 324 VIA GURNEY FROM ER. SLIDE TX TO BED. PT ADMITTED FOR ACUTE ENCEPHALOPATHY FROM [facility]. PER REPORT FROM LOW HENRY, PT GOING THRU W/D AND SENT TO ER FROM [facility] X2 D/T CONFUSION AND FREQUENT FALLS. PT GIVEN MULTIPLE MEDS AT [facility] RESULTING IN SLURRED SPEECH AND UNSTEADY GAIT. PT STAGGERING, INCREASING FALL RISK. PT UNABLE TO FOLLOW COMMANDS, VERY AGITATED. PT IMMEDIATELY CLIMBING OOB, AND LEANING OVER EOB NEARLY FALLING OUT ON HIS HEAD. PT SETTING OFF BED ALARM CONSTANTLY. SPEECH VERY SLURRED. PT THROWING TELE BOX ACROSS RM, BREAKING IT OPEN. PT RIPPED CONTINOUS BIOX WIRES APART AND THROUGH THEM ON THE FLOOR. UNABLE TO EDU PT AT ALL. DR GRANADOS NOTIFIED FOR PABLO VEST TO KEEP PT SAFE. PT REMAINED VERY AGITATED AND DETERMINED TO GET OOB AND TEAR UP EQUIPMENT. DR GRANADOS NOTIFIED AGAIN; NEW ORDERS PLACED. IM ZYPREXIA GIVEN PER EMAR. PT LATER CALMED, THOUGH STILL SHOWING SIGNS OF RESTLESSNESS AND AGITATION, BUT MUCH DECREASED FROM EARLIER. DR GRANADOS LATER TO TO [facility] ON PT AGAIN. PT RESTING MORE QUIETLY AT THIS TIME. BED ALARM ON FOR SAFETY. CALL LT IN REACH.
[2022-06-05 05:26] LABS: BASOPHILS ABSOLUTE AUTO 0.02 K/mm3 (0.00-0.23); BASOPHILS PERCENT AUTO 0 % (0-2); EOSINOPHILS ABSOLUTE AUTO 0.04 K/mm3 (0.00-0.68); EOSINOPHILS PERCENT AUTO 1 % (0-6); Hematocrit 39.4 % (37.0-53.0); Hemoglobin 13.3 g/dL (13.5-17.5); IMMATURE GRAN ABSOLUTE AUTO 0.02 K/mm3 (0.00-0.10); IMMATURE GRAN PERCENT AUTO 0 % (0-1); LYMPHOCYTES ABSOLUTE AUTO 0.94 K/mm3 (0.84-5.20); LYMPHOCYTES PERCENT AUTO 15 % (21-46); MONOCYTES ABSOLUTE AUTO 0.82 K/mm3 (0.16-1.47); MONOCYTES PERCENT AUTO 13 % (4-13); Mean Corpuscular HGB 34.3 pg (26.0-34.0); Mean Corpuscular HGB Conc 33.8 g/dL (31.5-36.5); Mean Corpuscular Volume 102 fL (80-100); Mean Platelet Volume 10.3 fL (9.1-12.4); NEUTROPHILS ABSOLUTE AUTO 4.55 K/mm3 (1.96-9.15); NEUTROPHILS PERCENT AUTO 71 % (41-73); Platelet Count 106 K/mm3 (150-400); RDW Standard Deviation 47.9 fL (35.1-46.3); Red Blood Cell Count 3.88 M/mm3 (4.30-5.90); White Blood Cell Count 6.39 K/mm3 (4.00-11.30)
[2022-06-05 06:03] LABS: Albumin, Blood 3.1 g/dL (3.4-5.0); Albumin/Globulin Ratio 0.8 (0.8-1.8); Bilirubin, Total 1.3 mg/dL (0.1-1.0); Bun/Creatinine Ratio 13.6 (12.0-20.0); Calcium, Blood 8.8 mg/dL (8.5-10.1); Creatinine, Blood 0.59 mg/dL (0.60-1.20); Globulin, Blood 4.1 g/dL (2.2-4.0); Potassium, Blood 3.1 mmol/L (3.5-5.5); Total Protein, Blood 7.2 g/dL (6.4-8.2)
--- NOTE | 2022-06-05 06:46 | NUR ---
PATIENT VERY RESTLESS OVERNIGHT REQUIRING VEST RESTRAINT TO BE LEFT IN PLACE FOR PATIENT SAFETY. EARLY IN THE SHIFT, KAYCEE WAS SHUFFLING ALL OVER THE BED AND PICKING AT NON EXISTANT THINGS IN THE AIR. TOWARDS THE END, HE WAS YELLING AND GRABBING AT STAFF AND THE AIR, AND SWINGING BACK WITH HIS ARMS AND LEGS WHENEVER THIS RN TRIED TO ASSESS OR REAJUST HIS POSITION. CURRENTLY, CIWA LEVEL IS 12, AND PATIENT WAS LAST MEDICATED AT 0500 WITH 2MG ATIVAN. UNABLE TO UNDERSTAND ANY WORDS HE SAYS, HE ONLY MUMBLES SO FAR.
[2022-06-05 08:38] LABS: Magnesium, Blood 1.5 mg/dL (1.6-2.4); Phosphorus, Blood 3.4 mg/dL (2.5-4.9)
--- NOTE | 2022-06-05 19:45 | NUR ---
SHIFT SUMMARY PT RESTING QUIETLY DURING SHIFT REPORT. PT BECOMES AGITATED WHEN AWAKE AND WHEN HE NEEDS TO VOID. PT IS CONTINENT WHEN AWAKE. PT BECOMES AGITATED AT TIMES WHEN TRYING TO PROVIDE CARE. PT IS CONFUSED AND DISORIENTED. VERY UNSAFE, TRYING TO GET OOB WHEN AWAKE, BUT NOT KNOWING WHERE HE IS GOING. IVF'S CHANGED TODAY. PT TEARING OUT IV THIS AFTERNOON, WHEN AGITATED. NEW IV PLACED. BP STILL ELEVATED; IV HYDRALAZINE GIVEN PER EMAR. PT UNABLE TO HAVE TELE MX HE TORE IT OFF AND THRU IT AGAINST THE WALL, BREAKING INTO SEVERAL PIECES. PT ALSO TORE OFF CONT BIOX, ATTEMPTING TO THROW MACHINE ACROSS RM, BREAKING WIRES TRYING TO REMOVE IT. STAFF FROM [facility] CALLED TODAY TO CK ON PT; UPDATE GIVEN. REPORT GIVEN TO ONCOMING RN.
[2022-06-06 06:14] LABS: Hematocrit 41.4 % (37.0-53.0); Hemoglobin 14.1 g/dL (13.5-17.5); Mean Corpuscular HGB 34.5 pg (26.0-34.0); Mean Corpuscular HGB Conc 34.1 g/dL (31.5-36.5); Mean Corpuscular Volume 101 fL (80-100); Mean Platelet Volume 10.1 fL (9.1-12.4); Platelet Count 127 K/mm3 (150-400); RDW Coefficient Variation 13.2 % (11.7-14.2); RDW Standard Deviation 49.5 fL (35.1-46.3); Red Blood Cell Count 4.09 M/mm3 (4.30-5.90); White Blood Cell Count 6.75 K/mm3 (4.00-11.30)
[2022-06-06 06:28] LABS: Albumin, Blood 3.1 g/dL (3.4-5.0); Anion Gap 5 mmol/L (6-16); Blood Urea Nitrogen 10 mg/dL (8-24); Bun/Creatinine Ratio 14.8 (12.0-20.0); CO2, Blood 24 mmol/L (21-32); Calcium, Blood 8.4 mg/dL (8.5-10.1); Chloride, Blood 114 mmol/L (98-108); Creatinine, Blood 0.68 mg/dL (0.60-1.20); Glomerular Filtration Rate 106 (60-); Glucose, Blood 114 mg/dL (70-99); Phosphorus, Blood 2.8 mg/dL (2.5-4.9); Potassium, Blood 3.4 mmol/L (3.5-5.5); Sodium, Blood 143 mmol/L (136-145)
--- NOTE | 2022-06-06 16:39 | NUR ---
1630- CALLED DR BARKSDALE AND NOTIFIED HER THAT PT HAS HAD A SUDDEN CHANGE IN NERUO STATUS- PT HAD GROSS MOTOR TREMORS AFTER WE GOT HIM BACK TO BED, HE HAD BEEN AGITATED AND PULLED HIS WHOLE DIAPER APART. IT WAS A FRANCIS CONTRAST ONCE WE GOT HIM TO BED AFTER THE TREMOR EPISODE, HE FELL ASLEEP. PT MAY BE TIRED OUT FROM BEING IN CHAIR ALL DAY. BUT WHEN CHECKING NEURO, HAD BILAT WEAK SANDING MACHINE TENDER, STUCK OUT TONGUE WITH NO DEVIATION. DWAYNE. PT VERY SLEEPY, THICK QUIET SPEECH, WHEN ASKED IF HE FELT SOMETHING WRONG COULD BARELY SPEEK ENOUGH TO SAY HE HAD A HEADACHE. RN ASKED IF HE FELT SOMETHING WAS WRONG AND HE NODDED "YES". DR BARKSDALE ORDERED CT WITH NO CONTRAST. BP AT 1630 ELEVATED AND ALSO MEDICATED WITH HYDRALAZINE TO TX HTN
--- NOTE | 2022-06-06 18:41 | NUR ---
SUMMARY- PT A/O TO SELF. WAS A GOOD HISTORIAN THIS AM. STARTED RESTLESS AND AGITATED. DOES NOT KNOW LIMITS. PULLING AT PABLO. GOT UP TO CHAIR MOST OF THE DAY. STARTED ON GEN DIET, ATE ALL OF MAC AND CHEESE, CARROTS APPLE SAUCE AND PUDDING, TOLERATING FLUIDS. INCONT IN ATTENDS. MEDICATED IM AM AND 1315 WITH IV ATIVAN, HELPFUL FOR AGITATION. 1600 PT HAD A CHANGE IN MENTAL STATUS; CALLED DR BARKSDALE; CT OF HEAD PERFORMED, AWAITING RESULTS. BP FREQ ELEVATED, RESTARTED METOPROLOL, PRN HYDRALAZINE X2 THIS SHIFT. RESTRAINTS DC'D 1800 SINCE 1600 LETHARGIC. REPORTED TO NOC CARL
[2022-06-07 06:06] LABS: Albumin, Blood 3.1 g/dL (3.4-5.0); Albumin/Globulin Ratio 0.7 (0.8-1.8); Bilirubin, Total 1.8 mg/dL (0.1-1.0); Bun/Creatinine Ratio 16.2 (12.0-20.0); Calcium, Blood 8.6 mg/dL (8.5-10.1); Creatinine, Blood 0.56 mg/dL (0.60-1.20); Globulin, Blood 4.3 g/dL (2.2-4.0); Potassium, Blood 3.6 mmol/L (3.5-5.5); Total Protein, Blood 7.4 g/dL (6.4-8.2)
--- NOTE | 2022-06-07 18:46 | NUR ---
SUMMARY- PT HAS BEEN OBTUNDED ALL DAY. AWAKENS TO LOUD VERBAL STIM, HARDLY OPENS EYES, MUMBLES SOFTLY. HAS FACIAL DROOP OF R EYE AND L MOUTH, STATES HX BELLS PALSEY. PT HAS NOT HAD ANY PRN ATIVAN, HELD NEURONTIN HAD FELXORIL DC'D RELATED TO LETHARGY. TYLENOL AND HEAT FOR NECK. NO PAIN LONG PT NOT MOVING. SEVERE NECK PAIN WITH ANY MOVEMENT. PT TOLERATED SMALL AMOUNT OF BREAKFAST AND LUNCH. BECAME NAUSEATED WITH WITH DINNER AND HAD SMALL EMESIS. PT HAD A COUGHING EPISODE THIS AM THAT SHAMIR AWARE OF, PT ALSO HAD COUGHING EPISODE WITH DINNER. TOOK TRAY. CALLED DR BARKSDALE AT 1730, NOTIFIED THAT PT HAS BEEN OBTUNDED ALL DAY, GAVE NEURO UPDATE AND NOTIFIED THAT PT HAD NOT BEEN DOING WELL WITH ORAL INTAKE. WILL HOLD ALL PO INTAKE IF PT SLEEPY AND HAVE A SWALLOW EVAL IN AM. PT HAS GOOD BOWEL TONES, NO DOCUMENTED BM SINCE ADMIT. WILL START SENOKOT TO STIM BM. WILL HOLD ALL SEDATING MEDS INCLUDING NEURONTIN WITH PT CONTINUED TO HAVE LETHARGY. BP AND HR COMING DOWN NICELY WITH ADDIDION OF PT'S HOME MED METOPROLOL YESTERDAY. NO PRN HYDRALAZINE TODAY. WILL REPORT ALL TO MAGAN HENRY.
--- NOTE | 2022-06-08 06:00 | NUR ---
END OF SHIFT NURSING REPORT - PM Mr Somers is a 61 y/o male admitted for acute metabolic encephalopathy. Hx of chronic alcoholism, HTN DM CAD Cirrhosis and was brought from [facility] due to weakness confusion and falling. Polypharmacy was suspected from taking high doses of Gabapentin, Hydroxyzine, Librium Trazodone and Promethazine. He was fully awake aroung 2330 last night and states having missed all meals yesterday d/t inability to stay awake. he received some snacks and oral hydration, along with D5-1/2NS-20K+ infusing at 100ml/hr. He was incontinent half the night, and started using call light towards morning requesting for urinal. No behavioral issues through the night, easily redirectable. Labs reviewd, AST 57.
--- NOTE | 2022-06-08 16:46 | NUR ---
SHIFT SUMMARY PT AWAKE DURING SHIFT REPORT. MUCH IMPROVED FROM WEDNESDAY NIGHT. PT UP TO CHAIR AFTER BREAKFAST, SITTING IN RECLINER. PT LATER UP WITH P/T AND ABLE TO AMBULATE IN HALLS WITH 1P ASSIST USING GB. PT VERY HAPPY ABOUT THAT. PT THEN UP TO [facility]THRM FOR SHOWER AND BACK TO CHAIR. PT STILL REMAINS VERY FORGETFUL AND IMPULSIVE. PT HAS BEEN OUT OF CHAIR, SETTING OFF ALARMS CONSTANTLY, SINCE WALKING WITH THERAPY. PT HAS IMPROVED, BUT STILL REQUIRES SBA FOR SAFETY. IVF'S D/C'D. PT EATING AND DRINKING WELL NOW. PT'S DAUGHTER SHASHANK, CALLED FOR UPDATE. SHASHANK STATED THAT SHE WOULD BE PICKING UP PT'S CELL PHONE AND BELONGINGS FROM [employer] TODAY. PT INFORMED AND HAPPY ABOUT THAT. SITTING IN CHAIR WATCHING TV AT THIS TIME. CHAIR ALARM ON FOR SAFETY. CALL LT IN REACH.
[2022-06-09 05:31] LABS: Hemoglobin 14.6 g/dL (13.5-17.5); Mean Corpuscular HGB 34.4 pg (26.0-34.0); Mean Corpuscular HGB Conc 33.2 g/dL (31.5-36.5); Mean Corpuscular Volume 104 fL (80-100); Mean Platelet Volume 10.2 fL (9.1-12.4); Platelet Count 215 K/mm3 (150-400); RDW Coefficient Variation 12.7 % (11.7-14.2); RDW Standard Deviation 48.5 fL (35.1-46.3); Red Blood Cell Count 4.24 M/mm3 (4.30-5.90); White Blood Cell Count 6.82 K/mm3 (4.00-11.30)
--- NOTE | 2022-06-09 06:00 | NUR ---
END OF SHIFT NURSING REPORT - PM Mr Somers is a 61 y/o male admitted for acute metabolic encephalopathy. Hx of chronic alcoholism, HTN DM CAD Cirrhosis and was brought from [facility] due to weakness confusion and falling. Polypharmacy was suspected from taking high doses of Gabapentin, Hydroxyzine, Librium Trazodone and Promethazine. AOX4, cooperative and able to hold a conversation. Speech getting clear, and using call light for care. Ambulated up and down the hallway this AM at 0500. Using urinal and ambulating to bathroom. Medicated with PRN tylernol for back pain. No behavioral issues through the night, easily redirectable. Labs reviewed.
[2022-06-09 06:48] LABS: Magnesium, Blood 1.9 mg/dL (1.6-2.4)
[2022-06-09 06:53] LABS: Albumin/Globulin Ratio 0.7 (0.8-1.8); Bilirubin, Total 1.2 mg/dL (0.1-1.0); Bun/Creatinine Ratio 17.8 (12.0-20.0); Calcium, Blood 9.4 mg/dL (8.5-10.1); Creatinine, Blood 0.73 mg/dL (0.60-1.20); Globulin, Blood 4.5 g/dL (2.2-4.0); Phosphorus, Blood 3.3 mg/dL (2.5-4.9); Potassium, Blood 4.2 mmol/L (3.5-5.5); Total Protein, Blood 7.5 g/dL (6.4-8.2)
[2022-06-09] MEDS ORDERED: ACET325 PO (15:34)
[2022-06-09] MEDS ORDERED: GABA300 PO (15:34)
[2022-06-09] MEDS ORDERED: CENTRUM SILVER1 EAC2 PO (15:35)
[2022-06-09] MEDS ORDERED: B-1100 M1 PO (15:36)
--- NOTE | 2022-06-09 20:48 | NUR ---
SHIFT SUMMARY PT AWAKE AND AMBULATING IN HALLS DURING SHIFT REPORT THIS AM. PT HAS BECOME MORE MOBILE AND A LITTLE MORE STEADY EACH DAY. STILL NEEDING TO USE FWW FOR SAFETY, IF AMBULATING ALONE; SBA WITH STAFF. DR BARKSDALE IN TO SEE PT AND DISCUSS PLAN OF CARE. D/C ORDERS PLACED. CASTING MACHINE ADJUSTER OBTAINED LIST OF ALCOLHOL TREATMENT CENTERS FOR PT AND FAMILY TO INQUIRE FOR CONTINUED TX. FWW ORDERED AND DELIVERED FOR PT PRIOR TO D/C. MEDS FAXED TO [facility], PER PT REQUEST. ATTEMPTED TO NOTIFY FAMILY MULTIPLE TIMES THRU OUT THE DAY OF D/C. FINALLY ABLE TO CONTACT DAUGHTER YASSINE. LEFT MESSAGES WITH DAUGHTER SHASHANK. PER YASSINE, PT'S NEPHEW LIVES WITH PT AND WAS TO REMOVE PT'S TRUCK KEYS TO KEEP PT FROM DRIVING WHILE STILL UNSAFE. PT INSTRUCTED NOT TO DRIVE UNTIL CLEARED BY PCP. PT VERBALIZED UNDERSTANDING AT TIME OF D/C. CASTING MACHINE ADJUSTER ARRANGED TX TO HOME FOR PT, BUT PT WANTING TO BE DROPPED OFF AT [employer] WHERE HIS NEIGHBOR WORKS AND HAVE HIM TAKE HIM HOME. PT ASSISTED OUT VIA W/C FOR TX. DENIED FURTHER NEEDS. D/C INSTRUCTIONS WENT WITH PT.
[2022-06-10] MEDS ORDERED: METO10 PO (00:53)
== END 2022-06-09 16:45 | disposition home or self-care (01) | DRG 896 ==
LOC: ER 05:43 → MEDS 08:47 → ER 08:47 → MEDS 10:28
PROVIDERS: Emergency Medicine; Internal Medicine; ADMIT Internal Medicine
DX: F10.231 Alcohol dependence with withdrawal delirium (principal); G92.8 Other toxic encephalopathy; E87.6 Hypokalemia; E83.42 Hypomagnesemia; I25.10 Atherosclerotic heart disease of native coronary artery without angina pectoris; E11.9 Type 2 diabetes mellitus without complications; I10 Essential (primary) hypertension; D69.6 Thrombocytopenia, unspecified; F32.A Depression, unspecified; R94.5 Abnormal results of liver function studies; K70.30 Alcoholic cirrhosis of liver without ascites; G51.0 Bell's palsy; G89.29 Other chronic pain; M54.9 Dorsalgia, unspecified; F41.9 Anxiety disorder, unspecified; F17.210 Nicotine dependence, cigarettes, uncomplicated; F12.10 Cannabis abuse, uncomplicated; R74.01 Elevation of levels of liver transaminase levels; Z96.89 Presence of other specified functional implants; W19.XXXA Unspecified fall, initial encounter; Z88.8 Allergy status to other drugs, medicaments and biological substances; Z79.02 Long term (current) use of antithrombotics/antiplatelets; Z95.5 Presence of coronary angioplasty implant and graft; Z88.5 Allergy status to narcotic agent; Z95.1 Presence of aortocoronary bypass graft; Z79.82 Long term (current) use of aspirin; Z86.718 Personal history of other venous thrombosis and embolism; Z90.49 Acquired absence of other specified parts of digestive tract; Z79.899 Other long term (current) drug therapy; Z87.19 Personal history of other diseases of the digestive system; Z90.6 Acquired absence of other parts of urinary tract; Z98.890 Other specified postprocedural states
CPT/HCPCS: 36415; 70450; 80053; 80069; 82140; 82607; 82746; 82947; 83735; 84100; 84443; 85025; 85027; 92610; 94762; 96374; 97116; 97162; 97530; 99285-25; A9270; J0360; J1650; J2060; J3411; J3475; J3480; J7030; J7042; J7050

== ENCOUNTER 2022-06-09 20:55 | Emergency (ER) | payer OTHER ==
[~2022-06-09] VITALS: Ht 172.7 cm; Wt 90.7 kg
[~2022-06-09 20:55] MED LIST changes: +B-1100 M1 PO; +CENTRUM SILVER1 EAC2 PO
[2022-06-09 21:09] LABS: BASOPHILS ABSOLUTE AUTO 0.06 K/mm3 (0.00-0.23); BASOPHILS PERCENT AUTO 1 % (0-2); EOSINOPHILS ABSOLUTE AUTO 0.17 K/mm3 (0.00-0.68); EOSINOPHILS PERCENT AUTO 2 % (0-6); Hematocrit 41.7 % (37.0-53.0); Hemoglobin 13.8 g/dL (13.5-17.5); IMMATURE GRAN ABSOLUTE AUTO 0.02 K/mm3 (0.00-0.10); IMMATURE GRAN PERCENT AUTO 0 % (0-1); LYMPHOCYTES ABSOLUTE AUTO 1.42 K/mm3 (0.84-5.20); LYMPHOCYTES PERCENT AUTO 19 % (21-46); MONOCYTES ABSOLUTE AUTO 1.05 K/mm3 (0.16-1.47); MONOCYTES PERCENT AUTO 14 % (4-13); Mean Corpuscular HGB 34.5 pg (26.0-34.0); Mean Corpuscular HGB Conc 33.1 g/dL (31.5-36.5); Mean Corpuscular Volume 104 fL (80-100); Mean Platelet Volume 9.6 fL (9.1-12.4); NEUTROPHILS ABSOLUTE AUTO 4.64 K/mm3 (1.96-9.15); NEUTROPHILS PERCENT AUTO 63 % (41-73); Platelet Count 247 K/mm3 (150-400); RDW Coefficient Variation 12.4 % (11.7-14.2); RDW Standard Deviation 47.9 fL (35.1-46.3); White Blood Cell Count 7.36 K/mm3 (4.00-11.30)
[2022-06-09 21:29] LABS: Albumin, Blood 3.1 g/dL (3.4-5.0); Albumin/Globulin Ratio 0.7 (0.8-1.8); Bun/Creatinine Ratio 15.9 (12.0-20.0); Calcium, Blood 9.3 mg/dL (8.5-10.1); Creatinine, Blood 0.88 mg/dL (0.60-1.20); Globulin, Blood 4.5 g/dL (2.2-4.0); Potassium, Blood 4.1 mmol/L (3.5-5.5); Total Protein, Blood 7.6 g/dL (6.4-8.2)
[2022-06-10] MEDS ORDERED: METO10 PO (00:53)
== END 2022-06-10 01:07 | disposition home or self-care (01) ==
LOC: ER 20:55
PROVIDERS: Student in an Organized Health Care Education/Training Program
DX: G43.109 Migraine with aura, not intractable, without status migrainosus (principal); Z88.8 Allergy status to other drugs, medicaments and biological substances; Z88.5 Allergy status to narcotic agent; Z79.899 Other long term (current) drug therapy; Z79.82 Long term (current) use of aspirin; I10 Essential (primary) hypertension; E11.9 Type 2 diabetes mellitus without complications; F17.210 Nicotine dependence, cigarettes, uncomplicated
CPT/HCPCS: 36415; 80053; 85025; 96374; 96375; 99285-25; A9270; J1200; J1885; J2765; J7030

== ENCOUNTER → 2022-09-17 | Outpatient (CLI) | payer OTHER ==
[~2022-09-17] MED LIST changes: +METO10 PO
== END | disposition home or self-care (01) ==
LOC: LAB SHORT 10:42 → LAB 10:42
DX: L02.91 Cutaneous abscess, unspecified (principal)
CPT/HCPCS: 87070; 87075; 87205

== ENCOUNTER 2023-01-19 21:43 | Emergency (ER) | payer OTHER ==
[~2023-01-19] VITALS: Ht 172.7 cm; Wt 102.1 kg
[2023-01-19 22:11] LABS: BASOPHILS ABSOLUTE AUTO 0.03 K/mm3 (0.00-0.23); BASOPHILS PERCENT AUTO 0 % (0-2); EOSINOPHILS ABSOLUTE AUTO 0.07 K/mm3 (0.00-0.68); EOSINOPHILS PERCENT AUTO 1 % (0-6); Hematocrit 47.9 % (37.0-53.0); Hemoglobin 16.8 g/dL (13.5-17.5); IMMATURE GRAN ABSOLUTE AUTO 0.01 K/mm3 (0.00-0.10); IMMATURE GRAN PERCENT AUTO 0 % (0-1); LYMPHOCYTES ABSOLUTE AUTO 2.64 K/mm3 (0.84-5.20); LYMPHOCYTES PERCENT AUTO 37 % (21-46); MONOCYTES PERCENT AUTO 7 % (4-13); Mean Corpuscular HGB 33.3 pg (26.0-34.0); Mean Corpuscular HGB Conc 35.1 g/dL (31.5-36.5); Mean Corpuscular Volume 95 fL (80-100); Mean Platelet Volume 8.8 fL (9.1-12.4); NEUTROPHILS ABSOLUTE AUTO 3.88 K/mm3 (1.96-9.15); NEUTROPHILS PERCENT AUTO 55 % (41-73); Platelet Count 142 K/mm3 (150-400); RDW Coefficient Variation 13.4 % (11.7-14.2); Red Blood Cell Count 5.04 M/mm3 (4.30-5.90); White Blood Cell Count 7.13 K/mm3 (4.00-11.30)
[2023-01-19 22:24] LABS: Albumin, Blood 3.7 g/dL (3.4-5.0); Albumin/Globulin Ratio 0.9 (0.8-1.8); Bilirubin, Total 1.3 mg/dL (0.1-1.0); Bun/Creatinine Ratio 13.4 (12.0-20.0); Calcium, Blood 8.3 mg/dL (8.5-10.1); Creatinine, Blood 0.82 mg/dL (0.60-1.20); Globulin, Blood 4.3 g/dL (2.2-4.0); Potassium, Blood 3.3 mmol/L (3.5-5.5)
[2023-01-20 00:06] LABS: Magnesium, Blood 1.8 mg/dL (1.6-2.4); Phosphorus, Blood 3.3 mg/dL (2.5-4.9)
[2023-01-20 01:45] LABS: U Amphetamine Screen Not Detected; U Barbituate Screen Not Detected; U Benzodiazapine Screen Not Detected; U Buprenorphine Screen Not Detected; U Cannabinoids Screen DETECTED; U Cocaine Screen Not Detected; U Methadone Screen Not Detected; U Methamphetamine Screen Not Detected; U Opiates Screen Not Detected; U Oxycodone Screen Not Detected; U Phencyclidine Screen Not Detected; U Propoxyphene Screen Not Detected
[2023-01-20] MEDS ORDERED: ALMACONE SUSPE355 ML PO (02:21)
[2023-01-20 05:15] VITALS: BP 142/90
== END 2023-01-20 05:28 | disposition home or self-care (01) ==
LOC: ER 21:43
PROVIDERS: Emergency Medicine
DX: R20.2 Paresthesia of skin (principal); E86.0 Dehydration; F10.229 Alcohol dependence with intoxication, unspecified; E87.6 Hypokalemia; I10 Essential (primary) hypertension; E11.9 Type 2 diabetes mellitus without complications; F17.210 Nicotine dependence, cigarettes, uncomplicated; Y90.8 Blood alcohol level of 240 mg/100 ml or more; Z79.899 Other long term (current) drug therapy
CPT/HCPCS: 70450; 71046; 80053; 82947; 83735; 84100; 84484; 85025; 93005; 93010; 96361; 96374; 99285-25; A9270; J2060; J7030

== ENCOUNTER 2023-03-25 07:25 | Emergency (ER) | payer OTHER ==
[~2023-03-25] VITALS: Ht 172.7 cm; Wt 99.8 kg
[~2023-03-25 07:25] MED LIST changes: +ALMACONE SUSPE355 ML PO
[2023-03-25 09:12] LABS: BASOPHILS ABSOLUTE AUTO 0.02 K/mm3 (0.00-0.23); BASOPHILS PERCENT AUTO 0 % (0-2); EOSINOPHILS ABSOLUTE AUTO 0.05 K/mm3 (0.00-0.68); EOSINOPHILS PERCENT AUTO 1 % (0-6); Hematocrit 42.2 % (37.0-53.0); Hemoglobin 14.9 g/dL (13.5-17.5); IMMATURE GRAN ABSOLUTE AUTO 0.01 K/mm3 (0.00-0.10); IMMATURE GRAN PERCENT AUTO 0 % (0-1); LYMPHOCYTES ABSOLUTE AUTO 0.91 K/mm3 (0.84-5.20); LYMPHOCYTES PERCENT AUTO 19 % (21-46); MONOCYTES ABSOLUTE AUTO 0.44 K/mm3 (0.16-1.47); MONOCYTES PERCENT AUTO 9 % (4-13); Mean Corpuscular HGB 35.5 pg (26.0-34.0); Mean Corpuscular HGB Conc 35.3 g/dL (31.5-36.5); Mean Corpuscular Volume 101 fL (80-100); Mean Platelet Volume 9.2 fL (9.1-12.4); NEUTROPHILS ABSOLUTE AUTO 3.48 K/mm3 (1.96-9.15); NEUTROPHILS PERCENT AUTO 71 % (41-73); Platelet Count 125 K/mm3 (150-400); RDW Coefficient Variation 12.2 % (11.7-14.2); RDW Standard Deviation 45.3 fL (35.1-46.3); White Blood Cell Count 4.91 K/mm3 (4.00-11.30)
[2023-03-25 09:24] LABS: Albumin, Blood 3.3 g/dL (3.4-5.0); Albumin/Globulin Ratio 0.9 (0.8-1.8); Bilirubin, Total 1.7 mg/dL (0.1-1.0); Bun/Creatinine Ratio 17.3 (12.0-20.0); Calcium, Blood 8.4 mg/dL (8.5-10.1); Creatinine, Blood 0.81 mg/dL (0.60-1.20); Globulin, Blood 3.8 g/dL (2.2-4.0); Potassium, Blood 3.5 mmol/L (3.5-5.5); Total Protein, Blood 7.1 g/dL (6.4-8.2)
[2023-03-25 11:30] VITALS: BP 162/95
== END 2023-03-25 13:33 | disposition home or self-care (01) ==
LOC: ER 07:25
PROVIDERS: Physician Assistant
DX: R07.9 Chest pain, unspecified (principal); F10.239 Alcohol dependence with withdrawal, unspecified; R19.7 Diarrhea, unspecified; Z88.8 Allergy status to other drugs, medicaments and biological substances; Z88.5 Allergy status to narcotic agent; Z88.1 Allergy status to other antibiotic agents; Z79.899 Other long term (current) drug therapy; I10 Essential (primary) hypertension; E11.9 Type 2 diabetes mellitus without complications; F17.210 Nicotine dependence, cigarettes, uncomplicated
CPT/HCPCS: 71046; 80053; 83880; 84484; 85025; 93005; 93010; 99285-25; J2250

== ENCOUNTER 2023-05-26 13:59 | Emergency (ER) | payer OTHER ==
[~2023-05-26] VITALS: Ht 177.8 cm; Wt 83.9 kg
[2023-05-26 14:36] LABS: BASOPHILS ABSOLUTE AUTO 0.03 K/mm3 (0.00-0.23); BASOPHILS PERCENT AUTO 1 % (0-2); EOSINOPHILS ABSOLUTE AUTO 0.03 K/mm3 (0.00-0.68); EOSINOPHILS PERCENT AUTO 1 % (0-6); Hematocrit 45.4 % (37.0-53.0); Hemoglobin 15.9 g/dL (13.5-17.5); IMMATURE GRAN ABSOLUTE AUTO 0.02 K/mm3 (0.00-0.10); IMMATURE GRAN PERCENT AUTO 0 % (0-1); LYMPHOCYTES ABSOLUTE AUTO 1.99 K/mm3 (0.84-5.20); LYMPHOCYTES PERCENT AUTO 31 % (21-46); MONOCYTES ABSOLUTE AUTO 0.53 K/mm3 (0.16-1.47); MONOCYTES PERCENT AUTO 8 % (4-13); Mean Corpuscular HGB 33.8 pg (26.0-34.0); Mean Corpuscular Volume 97 fL (80-100); Mean Platelet Volume 8.8 fL (9.1-12.4); NEUTROPHILS ABSOLUTE AUTO 3.93 K/mm3 (1.96-9.15); NEUTROPHILS PERCENT AUTO 60 % (41-73); Platelet Count 171 K/mm3 (150-400); RDW Coefficient Variation 11.4 % (11.7-14.2); RDW Standard Deviation 40.7 fL (35.1-46.3); White Blood Cell Count 6.53 K/mm3 (4.00-11.30)
[2023-05-26 14:51] LABS: Albumin, Blood 3.5 g/dL (3.4-5.0); Albumin/Globulin Ratio 0.9 (0.8-1.8); Bilirubin, Total 1.3 mg/dL (0.1-1.0); Calcium, Blood 8.9 mg/dL (8.5-10.1); Creatinine, Blood 0.73 mg/dL (0.60-1.20); Total Protein, Blood 7.5 g/dL (6.4-8.2)
[2023-05-26] MEDS ORDERED: NS 1,000 ML IV SCH (15:40)
[2023-05-26] MEDS ORDERED: Acetaminophen 500 MG Tab PO ONE (15:40)
[2023-05-26 19:05] LABS: U Amphetamine Screen Not Detected; U Barbituate Screen Not Detected; U Benzodiazapine Screen DETECTED; U Buprenorphine Screen Not Detected; U Cannabinoids Screen DETECTED; U Cocaine Screen Not Detected; U Methadone Screen Not Detected; U Methamphetamine Screen Not Detected; U Opiates Screen Not Detected; U Oxycodone Screen Not Detected; U Phencyclidine Screen Not Detected
[2023-05-26] MEDS ORDERED: RX PP HYDROcodone-APAP 1 Prepack/30MLBTL UD ONE (20:15)
[2023-05-26] MEDS ORDERED: HYDROCODONE-AC1 EA10 PO (20:16)
[2023-05-26 20:29] VITALS: BP 190/115
== END 2023-05-26 20:30 | disposition home or self-care (01) ==
LOC: ER 13:59
PROVIDERS: Emergency Medicine; Student in an Organized Health Care Education/Training Program
DX: G51.0 Bell's palsy (principal); R53.1 Weakness; I10 Essential (primary) hypertension; E11.9 Type 2 diabetes mellitus without complications; F41.9 Anxiety disorder, unspecified; G89.29 Other chronic pain; F32.A Depression, unspecified; F17.210 Nicotine dependence, cigarettes, uncomplicated; Z63.79 Other stressful life events affecting family and household; Z88.8 Allergy status to other drugs, medicaments and biological substances; Z88.5 Allergy status to narcotic agent; Z79.899 Other long term (current) drug therapy
CPT/HCPCS: 70450; 80053; 85025; 93005; 93010; 96360; 96361; 99285-25; A9270; J7030

== ENCOUNTER 2023-10-06 23:54 | Observation (INO) | payer MEDICARE, OTHER ==
[~2023-10-06] VITALS: Ht 172.7 cm; Wt 102.1 kg
[~2023-10-06 23:54] MED LIST changes: +HYDROCODONE-AC1 EA10 PO
[2023-10-07 00:11] LABS: Source, Urine Clean Catch
[2023-10-07 00:16] LABS: Bilirubin, Urine Neg (Neg); Blood, Urine 2+ (Neg); Glucose Qualitative, Urine Neg (Neg); Ketones, Urine 1+ (Neg); Leukocyte Esterase, Urine Neg (Neg); Nitrite, Urine Neg (Neg); Protein, Urine 3+ (Neg); Urobilinogen, Urine NORM (Normal)
[2023-10-07 00:28] LABS: Appearance, Urine Clear (Clear); Color, Urine Pale Yellow (P-Yellow)
[2023-10-07 00:30] LABS: Bacteria Few /hpf; Red Blood Cells, Urine 0-2 /hpf (0-2); Squamous Epithelial Cells Few /hpf (Few); White Blood Cells, Urine 0-2 /hpf (0-5)
[2023-10-07] MEDS ORDERED: NS 1,000 ML IV SCH ×2 (00:50→03:40)
[2023-10-07] MEDS ORDERED: FentaNYL Citrate 50 MCG/ML 2 ML Injection IV ONE (00:50)
[2023-10-07] MEDS ORDERED: Ondansetron HCl 2 MG / ML 2ML Vial IV ONE (01:05)
[2023-10-07 01:21] LABS: BASOPHILS ABSOLUTE AUTO 0.02 K/mm3 (0.00-0.23); BASOPHILS PERCENT AUTO 0 % (0-2); EOSINOPHILS ABSOLUTE AUTO 0.03 K/mm3 (0.00-0.68); EOSINOPHILS PERCENT AUTO 0 % (0-6); Hematocrit 45.4 % (37.0-53.0); Hemoglobin 15.9 g/dL (13.5-17.5); IMMATURE GRAN ABSOLUTE AUTO 0.03 K/mm3 (0.00-0.10); IMMATURE GRAN PERCENT AUTO 0 % (0-1); LYMPHOCYTES ABSOLUTE AUTO 0.86 K/mm3 (0.84-5.20); LYMPHOCYTES PERCENT AUTO 9 % (21-46); MONOCYTES ABSOLUTE AUTO 0.84 K/mm3 (0.16-1.47); MONOCYTES PERCENT AUTO 9 % (4-13); Mean Corpuscular HGB 32.9 pg (26.0-34.0); Mean Corpuscular Volume 94 fL (80-100); Mean Platelet Volume 9.3 fL (9.1-12.4); NEUTROPHILS ABSOLUTE AUTO 8.07 K/mm3 (1.96-9.15); NEUTROPHILS PERCENT AUTO 82 % (41-73); Platelet Count 148 K/mm3 (150-400); RDW Coefficient Variation 12.1 % (11.7-14.2); Red Blood Cell Count 4.84 M/mm3 (4.30-5.90); White Blood Cell Count 9.85 K/mm3 (4.00-11.30)
[2023-10-07 01:37] LABS: Albumin, Blood 3.8 g/dL (3.4-5.0); Albumin/Globulin Ratio 0.9 (0.8-1.8); Bilirubin, Total 2.4 mg/dL (0.1-1.0); Bun/Creatinine Ratio 16.1 (12.0-20.0); Calcium, Blood 8.8 mg/dL (8.5-10.1); Creatinine, Blood 1.24 mg/dL (0.60-1.20); Globulin, Blood 4.1 g/dL (2.2-4.0); Potassium, Blood 3.7 mmol/L (3.5-5.5); Total Protein, Blood 7.9 g/dL (6.4-8.2)
[2023-10-07] MEDS ORDERED: HYDROmorphone HCl/Pf 1MG SYR IV ONE (01:40)
[2023-10-07] MEDS ORDERED: Tamsulosin HCl 0.4 MG Cap PO ONE (03:40)
[2023-10-07] MEDS ORDERED: FentaNYL Citrate 50 MCG/ML 2 ML Injection IV PRN (03:40)
[2023-10-07] MEDS ORDERED: Ondansetron HCl 2 MG / ML 2ML Vial IV PRN (03:40)
[2023-10-07] MEDS ORDERED: CefTRIAXone Sodium 1,000 MG in NS 100 ML IV ONE (03:45)
[2023-10-07] MEDS ORDERED: HYDHCL25 PO (03:55)
[2023-10-07] MEDS ORDERED: METO25ER PO (03:56)
[2023-10-07] MEDS ORDERED: Tamsulosin HCl 0.4 MG Cap PO SCH (04:00)
[2023-10-07 04:51] VITALS: BP 186/103
[2023-10-07 05:36] LABS: International Normalized Ratio 1.07; Prothrombin Time Results 11.4 Sec (9.7-11.5)
[2023-10-07 05:58] VITALS: BP 145/126
--- NOTE | 2023-10-07 06:32 | NUR ---
Patient arrived to room from ED at 0445. Patient alert and oriented x3, talkative/pleasant. Patient hypertensive on arrival from ED, Dr. Faye gave orders to restart home Metoprolol, order entered by RN. Patient using urinal to void, NS @ 100 mL/hr infusing into left AC PIV, tolerating well. Patient complaining of significant pain to left flank radiating to left testicles, poorly controlled by PRN medications. Nursing straining urine for calculi.
[2023-10-07] MEDS ORDERED: HyDROXyzine HCl 25 MG Tab PO PRN (06:35)
[2023-10-07] MEDS ORDERED: HydrALAZINE HCl 20 MG / ML 1ML Vial IV PRN (06:35)
[2023-10-07] MEDS ORDERED: OxyCODONE HCL 5 MG TAB PO PRN (07:15)
[2023-10-07] MEDS ORDERED: Acetaminophen 500 MG Tab PO PRN (07:20)
[2023-10-07] MEDS ORDERED: Polyethylene Glycol 3350 17 gm PO PRN (07:20)
[2023-10-07] MEDS ORDERED: HYDROmorphone HCl/Pf 1MG SYR IV PRN (07:20)
[2023-10-07 07:40] VITALS: BP 159/97
[2023-10-07] MEDS ORDERED: Metoprolol Succinate 25 MG TABCR PO SCH ×2 (09:00)
[2023-10-07] MEDS ORDERED: Enoxaparin 40 MG/0.4 ML SYR SC SCH (09:00)
[2023-10-07 13:14] LABS: BASOPHILS ABSOLUTE AUTO 0.01 K/mm3 (0.00-0.23); BASOPHILS PERCENT AUTO 0 % (0-2); EOSINOPHILS ABSOLUTE AUTO 0.08 K/mm3 (0.00-0.68); EOSINOPHILS PERCENT AUTO 1 % (0-6); Hematocrit 41.5 % (37.0-53.0); Hemoglobin 14.5 g/dL (13.5-17.5); IMMATURE GRAN ABSOLUTE AUTO 0.02 K/mm3 (0.00-0.10); IMMATURE GRAN PERCENT AUTO 0 % (0-1); LYMPHOCYTES ABSOLUTE AUTO 1.58 K/mm3 (0.84-5.20); LYMPHOCYTES PERCENT AUTO 19 % (21-46); MONOCYTES ABSOLUTE AUTO 0.85 K/mm3 (0.16-1.47); MONOCYTES PERCENT AUTO 11 % (4-13); Mean Corpuscular HGB 33.2 pg (26.0-34.0); Mean Corpuscular HGB Conc 34.9 g/dL (31.5-36.5); Mean Corpuscular Volume 95 fL (80-100); NEUTROPHILS ABSOLUTE AUTO 5.59 K/mm3 (1.96-9.15); NEUTROPHILS PERCENT AUTO 69 % (41-73); Platelet Count 126 K/mm3 (150-400); RDW Coefficient Variation 12.1 % (11.7-14.2); RDW Standard Deviation 42.6 fL (35.1-46.3); Red Blood Cell Count 4.37 M/mm3 (4.30-5.90); White Blood Cell Count 8.13 K/mm3 (4.00-11.30)
[2023-10-07] MEDS ORDERED: TAMS.4ER PO (13:29)
[2023-10-07] MEDS ORDERED: OXYC5 PO (13:29)
[2023-10-07 13:36] LABS: Albumin, Blood 3.3 g/dL (3.4-5.0); Albumin/Globulin Ratio 0.9 (0.8-1.8); Bilirubin, Total 2.1 mg/dL (0.1-1.0); Calcium, Blood 8.1 mg/dL (8.5-10.1); Creatinine, Blood 1.21 mg/dL (0.60-1.20); Globulin, Blood 3.6 g/dL (2.2-4.0); Potassium, Blood 3.6 mmol/L (3.5-5.5); Total Protein, Blood 6.9 g/dL (6.4-8.2)
--- NOTE | 2023-10-07 13:48 | NUR ---
1340-DC PT LEFT IN STABLE CONDITION WITH ALL BELONGINGS WITH HARD SCRIPT. DC INSTRUCTIONS DISCUSSED W/PT. PT VERBALIZED UNDERSTANDING.
[2023-10-07] MEDS ORDERED: Docusate Sodium/Senna 1 Tab PO SCH (21:00)
== END 2023-10-07 13:40 | disposition home or self-care (01) ==
LOC: ER 23:54 → MEDS 23:55
PROVIDERS: Emergency Medicine; ADMIT Internal Medicine
DX: N13.1 Hydronephrosis with ureteral stricture, not elsewhere classified (principal); N17.9 Acute kidney failure, unspecified; K74.60 Unspecified cirrhosis of liver; I25.10 Atherosclerotic heart disease of native coronary artery without angina pectoris; E11.9 Type 2 diabetes mellitus without complications; I10 Essential (primary) hypertension; Z88.5 Allergy status to narcotic agent; Z88.8 Allergy status to other drugs, medicaments and biological substances; Z79.899 Other long term (current) drug therapy
CPT/HCPCS: 36415; 74177; 80053; 81001; 83880; 85025; 85610; 96361; 96372; 96374-59; 96375; 96376; 99285-25; A9270; G0378; J0360; J0696; J1170; J1650; J2405; J3010; J7030; Q9967

== ENCOUNTER 2023-11-05 05:16 | Emergency (ER) | payer MEDICARE, OTHER ==
[~2023-11-05] VITALS: Ht 172.7 cm; Wt 102.1 kg
[~2023-11-05 05:16] MED LIST changes: +HYDHCL25 PO; +METO25ER PO
[2023-11-05] MEDS ORDERED: Ketorolac Tromethamine 30mg Vial IV ONE (05:35)
[2023-11-05 05:58] LABS: BASOPHILS ABSOLUTE AUTO 0.03 K/mm3 (0.00-0.23); BASOPHILS PERCENT AUTO 0 % (0-2); EOSINOPHILS ABSOLUTE AUTO 0.09 K/mm3 (0.00-0.68); EOSINOPHILS PERCENT AUTO 1 % (0-6); Hematocrit 45.1 % (37.0-53.0); Hemoglobin 16.2 g/dL (13.5-17.5); IMMATURE GRAN ABSOLUTE AUTO 0.04 K/mm3 (0.00-0.10); IMMATURE GRAN PERCENT AUTO 0 % (0-1); LYMPHOCYTES ABSOLUTE AUTO 1.28 K/mm3 (0.84-5.20); LYMPHOCYTES PERCENT AUTO 14 % (21-46); MONOCYTES PERCENT AUTO 9 % (4-13); Mean Corpuscular HGB 33.4 pg (26.0-34.0); Mean Corpuscular HGB Conc 35.9 g/dL (31.5-36.5); Mean Corpuscular Volume 93 fL (80-100); Mean Platelet Volume 9.1 fL (9.1-12.4); NEUTROPHILS ABSOLUTE AUTO 6.82 K/mm3 (1.96-9.15); NEUTROPHILS PERCENT AUTO 75 % (41-73); Platelet Count 145 K/mm3 (150-400); RDW Coefficient Variation 12.2 % (11.7-14.2); RDW Standard Deviation 41.7 fL (35.1-46.3); Red Blood Cell Count 4.85 M/mm3 (4.30-5.90); White Blood Cell Count 9.06 K/mm3 (4.00-11.30)
[2023-11-05] MEDS ORDERED: Morphine Sulfate 4 MG/1 ML Injection IV ONE (06:00)
[2023-11-05] MEDS ORDERED: Ondansetron HCl 2 MG / ML 2ML Vial IV ONE (06:00)
[2023-11-05] MEDS ORDERED: NS 1,000 ML IV SCH (06:00)
[2023-11-05 06:15] LABS: Albumin, Blood 3.5 g/dL (3.4-5.0); Albumin/Globulin Ratio 0.9 (0.8-1.8); Bilirubin, Total 1.6 mg/dL (0.1-1.0); Bun/Creatinine Ratio 17.5 (12.0-20.0); Calcium, Blood 8.4 mg/dL (8.5-10.1); Creatinine, Blood 0.86 mg/dL (0.60-1.20); Potassium, Blood 3.5 mmol/L (3.5-5.5); Total Protein, Blood 7.5 g/dL (6.4-8.2)
[2023-11-05] MEDS ORDERED: Tamsulosin HCl 0.4 MG Cap PO ONE (07:05)
[2023-11-05 07:19] LABS: Source, Urine Clean Catch
[2023-11-05 07:21] LABS: Appearance, Urine Hazy (Clear); Bilirubin, Urine Neg (Neg); Blood, Urine 5+ (Neg); Color, Urine Yellow (P-Yellow); Glucose Qualitative, Urine Neg (Neg); Ketones, Urine Neg (Neg); Leukocyte Esterase, Urine Neg (Neg); Nitrite, Urine Neg (Neg); Protein, Urine 2+ (Neg); Specific Gravity, Urine 1.015 (1.003-1.022); Urobilinogen, Urine NORM (Normal)
[2023-11-05 07:44] LABS: Bacteria Not Seen /hpf; Red Blood Cells, Urine 50-100 /hpf (0-2); Squamous Epithelial Cells Rare /hpf (Few); White Blood Cells, Urine 0-2 /hpf (0-5)
[2023-11-05] MEDS ORDERED: TAMS.4ER PO (08:26)
[2023-11-05] MEDS ORDERED: OXYACE7.5T PO (08:26)
[2023-11-05 08:46] VITALS: BP 161/91
== END 2023-11-05 08:41 | disposition home or self-care (01) ==
LOC: ER 05:16
PROVIDERS: Emergency Medicine
DX: N13.2 Hydronephrosis with renal and ureteral calculous obstruction (principal); I10 Essential (primary) hypertension; F17.210 Nicotine dependence, cigarettes, uncomplicated; E11.9 Type 2 diabetes mellitus without complications; Z88.5 Allergy status to narcotic agent; Z88.8 Allergy status to other drugs, medicaments and biological substances
CPT/HCPCS: 74177; 80053; 81001; 85025; 96361; 96374-59; 96375; 99284-25; A9270; J1885; J2270; J2405; J7030; Q9967

== ENCOUNTER 2024-01-19 14:16 | Emergency (ER) | payer MEDICARE, OTHER ==
[~2024-01-19] VITALS: Ht 175.3 cm; Wt 102.1 kg
[~2024-01-19 14:16] MED LIST changes: +OXYACE7.5T PO
[2024-01-19] MEDS ORDERED: Ondansetron HCl 2 MG / ML 2ML Vial IV ONE (14:40)
[2024-01-19] MEDS ORDERED: NS 1,000 ML IV SCH (14:40)
[2024-01-19] MEDS ORDERED: levETIRAcetam 4,500 MG in NS 100 ML IV ONE (14:45)
[2024-01-19 14:50] LABS: BASOPHILS ABSOLUTE AUTO 0.01 K/mm3 (0.00-0.23); BASOPHILS PERCENT AUTO 0 % (0-2); EOSINOPHILS ABSOLUTE AUTO 0.01 K/mm3 (0.00-0.68); EOSINOPHILS PERCENT AUTO 0 % (0-6); Hematocrit 46.1 % (37.0-53.0); Hemoglobin 16.9 g/dL (13.5-17.5); IMMATURE GRAN ABSOLUTE AUTO 0.03 K/mm3 (0.00-0.10); IMMATURE GRAN PERCENT AUTO 0 % (0-1); LYMPHOCYTES ABSOLUTE AUTO 0.78 K/mm3 (0.84-5.20); LYMPHOCYTES PERCENT AUTO 9 % (21-46); MONOCYTES ABSOLUTE AUTO 0.57 K/mm3 (0.16-1.47); MONOCYTES PERCENT AUTO 6 % (4-13); Mean Corpuscular HGB 34.3 pg (26.0-34.0); Mean Corpuscular HGB Conc 36.7 g/dL (31.5-36.5); Mean Corpuscular Volume 94 fL (80-100); NEUTROPHILS ABSOLUTE AUTO 7.81 K/mm3 (1.96-9.15); NEUTROPHILS PERCENT AUTO 85 % (41-73); Platelet Count 202 K/mm3 (150-400); RDW Coefficient Variation 12.3 % (11.7-14.2); RDW Standard Deviation 42.8 fL (35.1-46.3); Red Blood Cell Count 4.92 M/mm3 (4.30-5.90); White Blood Cell Count 9.21 K/mm3 (4.00-11.30)
[2024-01-19] MEDS ORDERED: levETIRAcetam 4,500 MG in NS 55 ML IV ONE (14:50)
[2024-01-19 15:08] LABS: Alanine Aminotransfer (ALT/SGP 66 U/L (12-78); Albumin, Blood 3.7 g/dL (3.4-5.0); Albumin/Globulin Ratio 0.9 (0.8-1.8); Alk Phos 105 U/L (50-136); Anion Gap 16 mmol/L (3-11); Aspartate Aminotrans (AST/SGOT 83 U/L (12-37); Bilirubin, Total 2.7 mg/dL (0.1-1.0); Blood Urea Nitrogen 13 mg/dL (8-24); Bun/Creatinine Ratio 14.2 (12.0-20.0); CO2, Blood 19 mmol/L (21-32); Calcium, Blood 9.7 mg/dL (8.5-10.1); Chloride, Blood 107 mmol/L (98-108); Creatinine, Blood 0.92 mg/dL (0.60-1.20); Ethanol (Alcohol), Blood, Med <3 mg/dL; Glomerular Filtration Rate 94 (60-); Glucose, Blood 205 mg/dL (70-99); Potassium, Blood 2.9 mmol/L (3.5-5.5); Sodium, Blood 139 mmol/L (136-145); Total Protein, Blood 7.7 g/dL (6.4-8.2)
[2024-01-19 16:24] LABS: Source, Urine Clean Catch
[2024-01-19 16:30] LABS: Appearance, Urine Clear (Clear); Bilirubin, Urine Neg (Neg); Blood, Urine 5+ (Neg); Color, Urine Yellow (P-Yellow); Glucose Qualitative, Urine Neg (Neg); Ketones, Urine 3+ (Neg); Leukocyte Esterase, Urine Neg (Neg); Nitrite, Urine Neg (Neg); Protein, Urine 3+ (Neg); Urobilinogen, Urine 2+ (Normal); pH, Urine 6.5 (5.0-8.0)
[2024-01-19] MEDS ORDERED: Potassium Chl 20MEQ/Water100ML 100 ML IV ONE (16:30)
[2024-01-19] MEDS ORDERED: Potassium Chloride 20 MEQ TabCR PO ONE (16:30)
[2024-01-19] MEDS ORDERED: NS 1,000 ML IV ONE (16:38)
[2024-01-19 16:42] LABS: Red Blood Cells, Urine 25-50 /hpf (0-2); White Blood Cells, Urine 0-2 /hpf (0-5)
[2024-01-19 16:43] LABS: Bacteria Few /hpf; Hyaline Casts 0-2 /lpf (0-2); Squamous Epithelial Cells Not Seen /hpf (Few)
[2024-01-19 16:45] LABS: U Amphetamine Screen Not Detected; U Barbituate Screen Not Detected; U Benzodiazapine Screen Not Detected; U Buprenorphine Screen Not Detected; U Cannabinoids Screen DETECTED; U Cocaine Screen Not Detected; U Methadone Screen Not Detected; U Methamphetamine Screen Not Detected; U Opiates Screen Not Detected; U Oxycodone Screen Not Detected; U Phencyclidine Screen Not Detected
[2024-01-19] MEDS ORDERED: LEVE500 PO (17:46)
[2024-01-19 18:30] VITALS: BP 180/114
== END 2024-01-19 18:43 | disposition home or self-care (01) ==
LOC: ER 14:16
PROVIDERS: Student in an Organized Health Care Education/Training Program
DX: R56.9 Unspecified convulsions (principal); E87.6 Hypokalemia; E11.9 Type 2 diabetes mellitus without complications; I10 Essential (primary) hypertension; F17.210 Nicotine dependence, cigarettes, uncomplicated; Z79.899 Other long term (current) drug therapy; Z88.1 Allergy status to other antibiotic agents; Z88.5 Allergy status to narcotic agent; Z88.8 Allergy status to other drugs, medicaments and biological substances
CPT/HCPCS: 70450; 80053; 80320; 81001; 83605; 83690; 83735; 85025; 93005; 93010; 96365; 96367; 96375; 99285-25; A9270; J1953; J2405; J3480; J7030

== ENCOUNTER 2024-03-09 20:38 | Observation (INO) | payer MEDICARE, OTHER ==
[~2024-03-09] VITALS: Ht 172.7 cm; Wt 99.0 kg
[~2024-03-09 20:38] MED LIST changes: +LEVE500 PO
[2024-03-09] MEDS ORDERED: Morphine Sulfate 4 MG/1 ML Injection IV ONE (21:20)
[2024-03-09] MEDS ORDERED: Ondansetron HCl 2 MG / ML 2ML Vial ONE (21:42)
[2024-03-09 21:46] LABS: BASOPHILS ABSOLUTE AUTO 0.04 K/mm3 (0.00-0.23); BASOPHILS PERCENT AUTO 1 % (0-2); EOSINOPHILS ABSOLUTE AUTO 0.08 K/mm3 (0.00-0.68); EOSINOPHILS PERCENT AUTO 1 % (0-6); Hematocrit 41.7 % (37.0-53.0); Hemoglobin 14.5 g/dL (13.5-17.5); IMMATURE GRAN ABSOLUTE AUTO 0.01 K/mm3 (0.00-0.10); IMMATURE GRAN PERCENT AUTO 0 % (0-1); LYMPHOCYTES ABSOLUTE AUTO 1.76 K/mm3 (0.84-5.20); LYMPHOCYTES PERCENT AUTO 24 % (21-46); MONOCYTES PERCENT AUTO 11 % (4-13); Mean Corpuscular HGB 34.6 pg (26.0-34.0); Mean Corpuscular HGB Conc 34.8 g/dL (31.5-36.5); Mean Corpuscular Volume 100 fL (80-100); Mean Platelet Volume 8.6 fL (9.1-12.4); NEUTROPHILS ABSOLUTE AUTO 4.66 K/mm3 (1.96-9.15); NEUTROPHILS PERCENT AUTO 64 % (41-73); Platelet Count 205 K/mm3 (150-400); RDW Coefficient Variation 12.3 % (11.7-14.2); RDW Standard Deviation 44.8 fL (35.1-46.3); Red Blood Cell Count 4.19 M/mm3 (4.30-5.90); White Blood Cell Count 7.35 K/mm3 (4.00-11.30)
[2024-03-09] MEDS ORDERED: Ondansetron HCl 2 MG / ML 2ML Vial IV ONE (21:55)
[2024-03-09 22:08] LABS: Albumin, Blood 2.9 g/dL (3.4-5.0); Albumin/Globulin Ratio 0.8 (0.8-1.8); Bilirubin, Total 1.3 mg/dL (0.1-1.0); Bun/Creatinine Ratio 17.7 (12.0-20.0); Calcium, Blood 8.1 mg/dL (8.5-10.1); Creatinine, Blood 0.79 mg/dL (0.60-1.20); Globulin, Blood 3.8 g/dL (2.2-4.0); Potassium, Blood 3.1 mmol/L (3.5-5.5); Total Protein, Blood 6.7 g/dL (6.4-8.2)
[2024-03-09] MEDS ORDERED: Potassium Chloride 20 MEQ TabCR PO ONE (22:50)
[2024-03-09] MEDS ORDERED: Potassium Chl 10MEQ/Water100ML 100 ML IV ONE (22:55)
[2024-03-09] MEDS ORDERED: Lidocaine 4% 1 Patch TOP ONE (23:05)
[2024-03-09] MEDS ORDERED: NS 250 ML IV SCH (23:10)
[2024-03-09] MEDS ORDERED: LIDO700A20 TOP (23:43)
[2024-03-09] MEDS ORDERED: Percocet 5-3251 EACH PO (23:48)
[2024-03-10] VITALS (13 sets, daily range): BP systolic 104–193; BP diastolic 65–115
[2024-03-10] MEDS ORDERED: FentaNYL Citrate 50 MCG/ML 2 ML Injection IV PRN ×3 (00:55→12:40)
[2024-03-10] MEDS ORDERED: FLU VACC TS2024-25(6MOS UP)/PF 45 MCG/0.5 ML SYRINGE IM ONE (00:55)
[2024-03-10] MEDS ORDERED: Ondansetron HCl 2 MG / ML 2ML Vial IV PRN (01:00)
[2024-03-10] MEDS ORDERED: Ketorolac Tromethamine 30mg Vial IV PRN (01:00)
[2024-03-10] MEDS ORDERED: Sodium Chloride 0.45% 1,000 ML IV SCH ×2 (01:00→11:45)
[2024-03-10 06:05] LABS: BASOPHILS ABSOLUTE AUTO 0.03 K/mm3 (0.00-0.23); BASOPHILS PERCENT AUTO 0 % (0-2); EOSINOPHILS ABSOLUTE AUTO 0.06 K/mm3 (0.00-0.68); EOSINOPHILS PERCENT AUTO 1 % (0-6); Hematocrit 36.5 % (37.0-53.0); Hemoglobin 12.8 g/dL (13.5-17.5); IMMATURE GRAN ABSOLUTE AUTO 0.03 K/mm3 (0.00-0.10); IMMATURE GRAN PERCENT AUTO 0 % (0-1); LYMPHOCYTES ABSOLUTE AUTO 1.52 K/mm3 (0.84-5.20); LYMPHOCYTES PERCENT AUTO 19 % (21-46); MONOCYTES ABSOLUTE AUTO 0.74 K/mm3 (0.16-1.47); MONOCYTES PERCENT AUTO 9 % (4-13); Mean Corpuscular HGB 34.5 pg (26.0-34.0); Mean Corpuscular HGB Conc 35.1 g/dL (31.5-36.5); Mean Corpuscular Volume 98 fL (80-100); Mean Platelet Volume 8.9 fL (9.1-12.4); NEUTROPHILS ABSOLUTE AUTO 5.71 K/mm3 (1.96-9.15); NEUTROPHILS PERCENT AUTO 71 % (41-73); Platelet Count 155 K/mm3 (150-400); RDW Coefficient Variation 12.1 % (11.7-14.2); RDW Standard Deviation 43.8 fL (35.1-46.3); Red Blood Cell Count 3.71 M/mm3 (4.30-5.90); White Blood Cell Count 8.09 K/mm3 (4.00-11.30)
[2024-03-10] MEDS ORDERED: Ketorolac Tromethamine 15mg Vial IV ONE (06:25)
[2024-03-10 06:39] LABS: Albumin, Blood 2.7 g/dL (3.4-5.0); Albumin/Globulin Ratio 0.8 (0.8-1.8); Bilirubin, Total 1.7 mg/dL (0.1-1.0); Bun/Creatinine Ratio 19.4 (12.0-20.0); Creatinine, Blood 0.78 mg/dL (0.60-1.20); Globulin, Blood 3.3 g/dL (2.2-4.0); Potassium, Blood 3.4 mmol/L (3.5-5.5)
--- NOTE | 2024-03-10 06:53 | NUR ---
SHIFT SUMMARY PT ARRIVED AT 0148 IN WHEELCHAIR. PT HAS 4 BROKEN RIBS ON LEFT SIDE. HE IS IN A PLEASANT MOOD DESPITE THE PAIN. MEDICATED WITH IV KETOROLAC, AND HE IS LYING DOWN TRYING TO SLEEP. APPROX 0500, PT UP TO BATHROOM. BEGAN VOMITING. BREAK NURSE ADMINISTERED IV ZOFRAN AND 25MCG FENTANYL. PULSE OX ON AND PT LYING IN BED. CURRENTLY IN SINUS TACH AT 116BPM WITH 92% O2. SPEAKING WITH PT, HIS PAIN IS STEADY, BUT FENTANYL HELPING. PAIN LEVEL STILL AT A 10 , BUT PT TRYING TO BREATH THROUGH PAIN. 0525, PT HR 113, O2 95%. APPROX 0545, PT STATED HE FELT LIKE HE WAS GOING TO FAINT . VITALS RUN, BP 160/90 HR [address] FONTENOT. STAT PORTABLE CHEST XRAY ORDERED FOR POSSIBLE PNEUMO . VITALS 0600 BP 170/104. CALLED DR FONTENOT BACK. DOCTOR STATED THIS WAS EXPECTED. HE IS IN PAIN. 0610 BP 166/99. 0619 BP 167/104 HR [address] FONTENOT AT BEDSIDE FOR EXAMINATION. ONE TIME DOSE 15MG IV TORADOL ORDERED AND BD PROTOCOL. STATED PT HAS WEEZING IN LUNG. 0629, IMAGING IN ROOM. CHEST XRAY COMPLETED. 0650, PT UP TO BATHROOM.
[2024-03-10] MEDS ORDERED: Albuterol 2.5 MG/3 ML VIAL INH PRN (07:05)
[2024-03-10] MEDS ORDERED: Potassium Chl 20MEQ/Water100ML 100 ML IV SCH (07:10)
[2024-03-10] MEDS ORDERED: Potassium Chloride 20 MEQ TabCR PO ONE ×2 (07:15→15:25)
[2024-03-10] MEDS ORDERED: OxyCODONE HCL 5 MG TAB PO PRN ×2 (07:40→08:05)
[2024-03-10] MEDS ORDERED: Ondansetron HCl 2 MG / ML 2ML Vial IV ONE (07:50)
[2024-03-10] MEDS ORDERED: Acetaminophen 500 MG Tab PO SCH (08:00)
[2024-03-10] MEDS ORDERED: Ketorolac Tromethamine 15mg Vial IV PRN (08:15)
--- NOTE | 2024-03-10 08:42 | NUR ---
PCU ARRIVAL PT BROUGHT TO PCU-18 FROM MEDICAL FLOOR RM 341 @ APPROX 0830. PT A&O X4. DIAPHORETIC & TREMULOUS UPON ARRIVAL. PT W/ DARK EMESIS. PT REPORTS DRINKING 1 PINT DAILY OF "[employer] WINE". PT REPORTS LAST DRINK LAST NIGHT. PT REPORTS HAVING TO "COMMIT MYSELF" IN THE PAST FOR ACOHOL WITHDRAWAL. PT REPORTS SPOUSE OF ALMOST 38 YRS 4 YRS AGO & HAS "STRUGGLED TO PIECE MYSELF BACK TOGETHER." CALL TO MD DEAN TO REPORT CONTINUED N/V, DIAPHORESIS, TREMORS & REPORT OF LAST ETOH LAST NIGHT. MD STATES WILL PLACE ORDERS.
[2024-03-10] MEDS ORDERED: Lidocaine 4% 1 Patch TOP SCH (09:00)
[2024-03-10] MEDS ORDERED: Metoprolol Succinate 25 MG TABCR PO SCH (09:00)
[2024-03-10] MEDS ORDERED: Gabapentin 300 MG Cap PO SCH (09:00)
[2024-03-10] MEDS ORDERED: LevETIRAcetam 500 MG Tab PO SCH (09:00)
[2024-03-10] MEDS ORDERED: HYDROmorphone HCl/Pf 1MG SYR IV PRN (09:05)
[2024-03-10] MEDS ORDERED: Metoclopramide HCl 5MG / ML 2ML Vial IV ONE (09:40)
--- NOTE | 2024-03-10 09:53 | NUR ---
PT W/ CONTINUED EMESIS - EMESIS NOTED TO BE LIQUID W/ MAROON/BROWN STRANDS.
[2024-03-10] MEDS ORDERED: HYDROmorphone HCl/Pf 1MG SYR IV ONE (10:00)
--- NOTE | 2024-03-10 10:30 | NUR ---
CALL PLACED TO PROVIDER TO GIVE UPDATE. PT TOLRATED REGLAN WELL AND REPORTS HIS NAUSEA IS BETTER NOW, PROVIDER TO PLACE ORDER. UPDATED PROVIDER ON BROWN/MAROON EMESIS. PROVIDER ASKED FOR CALL TO UPDATE WITH RASS SCORES, IF NEEDED ATIVAN AND LIBRIUM CAN BE ORDERED.
[2024-03-10] MEDS ORDERED: Metoclopramide HCl 10 MG Tab PO PRN (10:40)
--- NOTE | 2024-03-10 11:11 | NUR ---
CALL PLACED TO PROVIDER. PT DID WELL WITH REGLAN FOR APPROX 1 HOUR, THEN BECAME NAUSEOUS AND VOMITTED AGIAN. UPDATED PROVIDER THAT PT IS HAVING PRESSURE IN THE 200S-180'S, AND HAS NOT BEEN ABLE TO RECIEVE PO MEDICATION. NO NEW ORDERS, PROVIDER STATED HE WOULD CALL BACK.
[2024-03-10] MEDS ORDERED: Scopolamine Hydrobromide Patch TOP SCH (11:14)
[2024-03-10] MEDS ORDERED: Pantoprazole Sodium 40 MG Injection IV SCH (11:25)
[2024-03-10] MEDS ORDERED: HydrALAZINE HCl 20 MG / ML 1ML Vial IV PRN (11:40)
[2024-03-10] MEDS ORDERED: LORazepam 2 MG/ML 1ML Injection IV ONE (12:00)
[2024-03-10] MEDS ORDERED: Prochlorperazine Edisylate 10 mg Vial IV PRN (12:00)
--- NOTE | 2024-03-10 12:23 | NUR ---
UPDATE PT A&O X4. BP ELEVATED. IV HYDRALAZINE GIVEN PER EMAR. PT REPORTING BLURRY VISION. MD AT BEDSIDE. PT REPORTING SEEING 3 FINGERS WHEN 1 FINGER HELD UP IN FRONT OF HIM. PT REPORTS BLURRY VISION HAS OCURRED IN THE PAST "WHEN MY PAIN IS REALLY BAD WHICH IT HAS BEEN." PT W/ CONTINUED PAIN, NAUSEA & HTN. AWARE. MEDICATING PER EMAR.
[2024-03-10] MEDS ORDERED: Metoprolol Tartrate 1 MG/ML 5 ML VIAL IV SCH (13:00)
[2024-03-10] MEDS ORDERED: Enoxaparin 40 MG/0.4 ML SYR SC SCH (13:00)
[2024-03-10 13:32] LABS: U Amphetamine Screen Not Detected; U Barbituate Screen Not Detected; U Benzodiazapine Screen Not Detected; U Cocaine Screen Not Detected; U Methadone Screen Not Detected; U Methamphetamine Screen Not Detected
[2024-03-10 13:33] LABS: U Buprenorphine Screen Not Detected; U Cannabinoids Screen DETECTED; U Opiates Screen DETECTED; U Oxycodone Screen Not Detected; U Phencyclidine Screen Not Detected
--- NOTE | 2024-03-10 15:59 | NUR ---
PROVIDER TO BEDSIDE. PT STILL WITH INCREASED BLOOD PRESSURE IN THE 170'S-180'S. PT UNABLE TO PROVIDE PAST REACTIONS TO MEDICATIONS. PROVIDER DISCUSSED WITH PT ADDING ORAL ANTIHYPERTENSIVES. PTS DENIES N/V AT THIS TIME. NEW ORDER FOR PO POTASSIUM ORDERED, PT TOLERATED WELL. PLACED CALL TO TO TRY AND GET A LIST OF REACTIONS PT HAD TO MEDICATIONS, WAS UNABLE TO PROVIDE INFORMATION, UPDATED ON THIS.
[2024-03-10 16:22] LABS: Hematocrit 34.1 % (37.0-53.0); Hemoglobin 12.1 g/dL (13.5-17.5); Mean Corpuscular HGB 34.6 pg (26.0-34.0); Mean Corpuscular HGB Conc 35.5 g/dL (31.5-36.5); Mean Corpuscular Volume 97 fL (80-100); Mean Platelet Volume 8.8 fL (9.1-12.4); Platelet Count 132 K/mm3 (150-400); RDW Coefficient Variation 11.9 % (11.7-14.2); RDW Standard Deviation 42.8 fL (35.1-46.3); White Blood Cell Count 5.97 K/mm3 (4.00-11.30)
[2024-03-10] MEDS ORDERED: Losartan Potassium 25 MG Tab PO SCH (18:00)
--- NOTE | 2024-03-10 18:08 | NUR ---
SHIFT SUMMARY PT A&O X4, CALM, COOPERATIVE TO CARE. PT WITH HX OF FALLS. HR IN THE 90'S-100'S, SINUS RHYTHM, DENIES CP/PRESSURE, NUMB/TINGLING. ELEVATED BLOOD PRESSURES, MEDICATING PER EMAR. PT REPORTS BLURRED/DOUBLE VISION, AND DIZZY. HX OF BELLS PALSEY WITH RIGHT FACIAL DROOP. O2 >92% ON RA, DENIES SOB. N/V T/O SHIFT. THIS AM PT HAD BROWN/MAROON EMESIS, MD AWARE. LAST EMESIS AROUND 1100, YELLOW THIN LIQUID. PT DENIES N/V AT THIS TIME. PT WITH PAIN R/T RIB FRACTURE, MEDICATING PER EMAR. PT REPORTS RIB PAIN A 6/10 AT THIS TIME, MEDICATED PER EMAR. PT SLOWLY STARTING ON PO INTAKE, PT TOLERATING WELL. PROVIDERS TO BEDSIDE MULTIPLE TIMES T/O SHIFT ADJUSTING MEDICATIONS. PT REPORTS PAIN IS IMPROVED WITH REGIMEN AT THIS TIME. DENIES N/V AT THIS TIME WITH ORDERED MEDICATIONS. SURGEON TO BEDISDE TO DISCUSS PLAN OF CARE. PT TO CONTINUE WITH PAIN MANAGMENT AT THIS TIME. SURGERY NOT NEEDED, PER SURGEON. WILL CONTINUE TO MONITOR AND REPORT TO RIVERS AND LAKES BOATMAN RN.
[2024-03-11 03:55] VITALS: BP 149/96
[2024-03-11 04:22] LABS: BASOPHILS ABSOLUTE AUTO 0.01 K/mm3 (0.00-0.23); BASOPHILS PERCENT AUTO 0 % (0-2); EOSINOPHILS ABSOLUTE AUTO 0.08 K/mm3 (0.00-0.68); EOSINOPHILS PERCENT AUTO 2 % (0-6); Hematocrit 33.7 % (37.0-53.0); Hemoglobin 11.6 g/dL (13.5-17.5); IMMATURE GRAN ABSOLUTE AUTO 0.01 K/mm3 (0.00-0.10); IMMATURE GRAN PERCENT AUTO 0 % (0-1); LYMPHOCYTES ABSOLUTE AUTO 1.42 K/mm3 (0.84-5.20); LYMPHOCYTES PERCENT AUTO 31 % (21-46); MONOCYTES ABSOLUTE AUTO 0.43 K/mm3 (0.16-1.47); MONOCYTES PERCENT AUTO 9 % (4-13); Mean Corpuscular HGB 34.1 pg (26.0-34.0); Mean Corpuscular HGB Conc 34.4 g/dL (31.5-36.5); Mean Corpuscular Volume 99 fL (80-100); Mean Platelet Volume 8.8 fL (9.1-12.4); NEUTROPHILS ABSOLUTE AUTO 2.68 K/mm3 (1.96-9.15); NEUTROPHILS PERCENT AUTO 58 % (41-73); Platelet Count 113 K/mm3 (150-400); RDW Coefficient Variation 11.9 % (11.7-14.2); RDW Standard Deviation 43.7 fL (35.1-46.3); White Blood Cell Count 4.63 K/mm3 (4.00-11.30)
[2024-03-11 04:38] LABS: Calcium, Blood 7.8 mg/dL (8.5-10.1); Creatinine, Blood 0.82 mg/dL (0.60-1.20); Potassium, Blood 3.3 mmol/L (3.5-5.5)
[2024-03-11] MEDS ORDERED: Insulin Human Lispro 100 Units/ML 3ML Syringe SC SCH (07:30)
[2024-03-11 07:32] VITALS: BP 141/98
[2024-03-11] MEDS ORDERED: Potassium Chloride 20 MEQ TabCR PO ONE (08:30)
[2024-03-11] MEDS ORDERED: Losartan Potassium 25 MG Tab PO SCH (09:00)
[2024-03-11] MEDS ORDERED: Benzonatate 100 MG Cap PO PRN (11:15)
[2024-03-11 11:25] VITALS: BP 150/100
[2024-03-11] MEDS ORDERED: Metoprolol Succinate 25 MG TABCR PO SCH (12:00)
[2024-03-11] MEDS ORDERED: OXYC5 PO (14:41)
[2024-03-11] MEDS ORDERED: LOSA25 PO (14:42)
[2024-03-11] MEDS ORDERED: BENZ100A PO (14:42)
--- NOTE | 2024-03-11 15:07 | NUR ---
DISCHARGE SUMMARY PT A&O X4, CALM, COOPERATIVE TO CARE. HR IN THE 70'S-80'S, SINUS RHYTHM, DENIES CP/PRESSURE, NUMB/TINGLING. BP RANGING IN THE 140'S, MEDICATING PER EMAR. O2 >92% ON RA, DENIES SOB. +BS, PT DENIES N/V T/O SHIFT. PT TOLERATING PO INTAKE WELL. RIB PAIN RANGING FROM 6-8/10, MEDICATED PER EMAR. PT REQUESTING TO LEAVE TO FAMILY CIRCUMATANCES. PER PROVIDER PT OKAY TO DISCHARGE. DISCHARGE INSTUCTIONS PROVIDED TO PT. EDUCATED PT ON NEW MEDICATIONS. HARD COPY OF SCRIPT GIVEN TO PT TO TAKE TO PHARMACY. LEFT PIV REMOVED. PRESSURE APPLIED, GAUZE AND COBAN IN PLACE, PT TOLERATED WELL. HE DENIES ANY QUESTIONS OR CONCERNS AT THIS TIME. PT LEFT VIA WHEELCHAIR WITH RN.
== END 2024-03-11 14:59 | disposition home or self-care (01) ==
LOC: ER 20:38 → MEDS 20:39 → ER 03-10 00:21 → MEDS 03-10 00:21 → PCU 03-10 00:21 → MEDS 03-10 00:21 → PCU 03-10 08:26
PROVIDERS: Family Medicine; Student in an Organized Health Care Education/Training Program; ADMIT Internal Medicine
DX: S22.42XA Multiple fractures of ribs, left side, initial encounter for closed fracture (principal); I10 Essential (primary) hypertension; E11.9 Type 2 diabetes mellitus without complications; G51.0 Bell's palsy; F17.210 Nicotine dependence, cigarettes, uncomplicated; F10.20 Alcohol dependence, uncomplicated; R09.02 Hypoxemia; I25.10 Atherosclerotic heart disease of native coronary artery without angina pectoris; Z88.5 Allergy status to narcotic agent; Z88.8 Allergy status to other drugs, medicaments and biological substances; Z95.1 Presence of aortocoronary bypass graft; W51.XXXA Accidental striking against or bumped into by another person, initial encounter
CPT/HCPCS: 36415; 71045; 71046; 71260; 80048; 80053; 80320; 82947; 83036; 83880; 84484; 85025; 85027; 93005; 93010; 94640; 94664; 94760; 94762; 96365-59; 96372; 96375; 96375-59; 96376; 99285-25; A9270; G0378; J0360; J0780; J1171; J1650; J1885; J2060; J2270; J2405; J2470; J2765; J3010; J3480; J7030; Q9967

== ENCOUNTER 2024-03-25 02:40 | Emergency (ER) | payer MEDICARE, OTHER ==
[~2024-03-25] VITALS: Ht 175.3 cm; Wt 99.8 kg
[~2024-03-25 02:40] MED LIST changes: +BENZ100A PO; +LIDO700A20 TOP; +LOSA25 PO
[2024-03-25 02:50] VITALS: BP 113/81
== END 2024-03-25 05:33 | disposition home or self-care (01) ==
LOC: ER 02:40
DX: F10.129 Alcohol abuse with intoxication, unspecified (principal); S22.32XD Fracture of one rib, left side, subsequent encounter for fracture with routine healing; I10 Essential (primary) hypertension; E11.9 Type 2 diabetes mellitus without complications; Z95.1 Presence of aortocoronary bypass graft; Z88.8 Allergy status to other drugs, medicaments and biological substances; Z88.5 Allergy status to narcotic agent; Z79.899 Other long term (current) drug therapy; F17.210 Nicotine dependence, cigarettes, uncomplicated; W19.XXXD Unspecified fall, subsequent encounter
CPT/HCPCS: 71045; 99283-25

== ENCOUNTER 2024-03-26 12:29 | Emergency (ER) | payer MEDICARE, OTHER ==
[~2024-03-26] VITALS: Ht 172.7 cm; Wt 95.2 kg
[2024-03-26] MEDS ORDERED: Pantoprazole Sodium 40 MG Injection IV ONE (12:35)
[2024-03-26] MEDS ORDERED: Octreotide Acetate 50 MCG in NS 50 ML IV ONE (12:35)
[2024-03-26] MEDS ORDERED: CefTRIAXone Sodium 1,000 MG in NS 100 ML IV ONE (12:35)
[2024-03-26] MEDS ORDERED: Octreotide Acetate 500 MCG in NS 250 ML IV SCH (12:40)
[2024-03-26 12:52] LABS: BASOPHILS ABSOLUTE AUTO 0.03 K/mm3 (0.00-0.23); BASOPHILS PERCENT AUTO 0 % (0-2); EOSINOPHILS ABSOLUTE AUTO 0.01 K/mm3 (0.00-0.68); EOSINOPHILS PERCENT AUTO 0 % (0-6); Hematocrit 34.7 % (37.0-53.0); Hemoglobin 12.2 g/dL (13.5-17.5); IMMATURE GRAN ABSOLUTE AUTO 0.02 K/mm3 (0.00-0.10); IMMATURE GRAN PERCENT AUTO 0 % (0-1); LYMPHOCYTES ABSOLUTE AUTO 0.66 K/mm3 (0.84-5.20); LYMPHOCYTES PERCENT AUTO 9 % (21-46); MONOCYTES ABSOLUTE AUTO 0.47 K/mm3 (0.16-1.47); MONOCYTES PERCENT AUTO 7 % (4-13); Mean Corpuscular HGB 34.8 pg (26.0-34.0); Mean Corpuscular HGB Conc 35.2 g/dL (31.5-36.5); Mean Corpuscular Volume 99 fL (80-100); Mean Platelet Volume 10.5 fL (9.1-12.4); NEUTROPHILS ABSOLUTE AUTO 5.89 K/mm3 (1.96-9.15); NEUTROPHILS PERCENT AUTO 83 % (41-73); NRBC ABSOLUTE 0.02 K/mm3 (0.00-0.02); NRBC Auto 0.3 /100 WBC (0.0-0.2); Platelet Count 209 K/mm3 (150-400); RDW Coefficient Variation 12.4 % (11.7-14.2); RDW Standard Deviation 44.5 fL (35.1-46.3); Red Blood Cell Count 3.51 M/mm3 (4.30-5.90); White Blood Cell Count 7.08 K/mm3 (4.00-11.30)
[2024-03-26] MEDS ORDERED: NS 1,000 ML IV SCH (13:05)
[2024-03-26 13:14] LABS: Albumin, Blood 2.9 g/dL (3.4-5.0); Albumin/Globulin Ratio 0.7 (0.8-1.8); Bilirubin, Total 2.5 mg/dL (0.1-1.0); Calcium, Blood 8.8 mg/dL (8.5-10.1); Creatinine, Blood 0.77 mg/dL (0.60-1.20); Total Protein, Blood 6.9 g/dL (6.4-8.2)
[2024-03-26] MEDS ORDERED: Metoclopramide HCl 5MG / ML 2ML Vial IV ONE (13:45)
[2024-03-26 13:47] LABS: International Normalized Ratio 1.22; Prothrombin Time Results 12.9 Sec (9.7-11.5)
[2024-03-26 14:39] LABS: Source, Urine Clean Catch
[2024-03-26 14:59] LABS: Bilirubin, Urine Neg (Neg); Blood, Urine Neg (Neg); Color, Urine Yellow (P-Yellow); Glucose Qualitative, Urine Neg (Neg); Ketones, Urine 4+ (Neg); Leukocyte Esterase, Urine 1+ (Neg); Nitrite, Urine Neg (Neg); Protein, Urine 2+ (Neg); Urobilinogen, Urine 1+ (Normal); pH, Urine 6.5 (5.0-8.0)
[2024-03-26 15:08] LABS: Appearance, Urine Hazy (Clear); Bacteria Mod /hpf; Red Blood Cells, Urine 0-2 /hpf (0-2); Squamous Epithelial Cells Rare /hpf (Few)
[2024-03-26 15:09] LABS: Mucus Light (0-Heavy)
[2024-03-26] MEDS ORDERED: Pantoprazole Sodium 40 MG in NS 50 ML IV SCH (16:25)
[2024-03-26 16:29] LABS: Calcium, Ionized (POC) 1.03 mmol/L (1.10-1.46); Chloride (POC) 105 mmol/L (98-108); Creatinine (POC) 0.8 mg/dL (0.8-1.3); Glucose (ISTAT POC) 138 mg/dL (70-99); Hemoglobin (POC) 10.2 g/dL (13.5-17.5); Potassium (POC) 4.3 mmol/L (3.5-5.5); Sodium (POC) 138 mmol/L (135-148); Total CO2 (POC) 19 mmol/L (21-32)
[2024-03-26 18:12] VITALS: BP 168/101
[2024-03-26 18:42] LABS: Hematocrit 27.9 % (37.0-53.0); Hemoglobin 9.7 g/dL (13.5-17.5)
[2024-03-26] MEDS ORDERED: PHENobarbital Sodium 65MG / ML 1ML Vial IV ONE (18:55)
[2024-03-26] MEDS ORDERED: NS 50 ML IV ONE (20:31)
[2024-04-23] MEDS ORDERED: PANT40 PO (14:21)
== END 2024-03-26 21:00 | disposition short-term general hospital (02) ==
LOC: ER 12:29
PROVIDERS: Emergency Medicine
DX: K92.2 Gastrointestinal hemorrhage, unspecified (principal); F10.239 Alcohol dependence with withdrawal, unspecified; I10 Essential (primary) hypertension; E11.9 Type 2 diabetes mellitus without complications; F17.210 Nicotine dependence, cigarettes, uncomplicated; Z88.8 Allergy status to other drugs, medicaments and biological substances; Z88.5 Allergy status to narcotic agent; Z79.899 Other long term (current) drug therapy; Z95.1 Presence of aortocoronary bypass graft
CPT/HCPCS: 71045; 74174; 80047; 80053; 80320; 81001; 82272; 85014; 85018; 85025; 85610; 85730; 86850; 86900; 86901; 87086; 93005; 93010; 96365-59; 96366; 96368; 96375-59; 96376-59; 99285-25; J0696; J2354; J2470; J2560; J2765; J7030; J7050; Q9967

== ENCOUNTER 2024-04-22 13:11 | Inpatient (IN) | payer MEDICARE, OTHER ==
[~2024-04-22] VITALS: Ht 172.7 cm; Wt 93.0 kg
[2024-04-22] MEDS ORDERED: Pantoprazole Sodium 40 MG Injection IV ONE (13:50)
[2024-04-22 13:56] LABS: BASOPHILS ABSOLUTE AUTO 0.03 K/mm3 (0.00-0.23); BASOPHILS PERCENT AUTO 0 % (0-2); EOSINOPHILS ABSOLUTE AUTO 0.01 K/mm3 (0.00-0.68); EOSINOPHILS PERCENT AUTO 0 % (0-6); Hematocrit 32.6 % (37.0-53.0); Hemoglobin 10.7 g/dL (13.5-17.5); IMMATURE GRAN ABSOLUTE AUTO 0.02 K/mm3 (0.00-0.10); IMMATURE GRAN PERCENT AUTO 0 % (0-1); LYMPHOCYTES ABSOLUTE AUTO 0.95 K/mm3 (0.84-5.20); LYMPHOCYTES PERCENT AUTO 12 % (21-46); MONOCYTES ABSOLUTE AUTO 0.97 K/mm3 (0.16-1.47); MONOCYTES PERCENT AUTO 12 % (4-13); Mean Corpuscular HGB 32.1 pg (26.0-34.0); Mean Corpuscular HGB Conc 32.8 g/dL (31.5-36.5); Mean Corpuscular Volume 98 fL (80-100); Mean Platelet Volume 9.1 fL (9.1-12.4); NEUTROPHILS ABSOLUTE AUTO 6.26 K/mm3 (1.96-9.15); NEUTROPHILS PERCENT AUTO 76 % (41-73); Platelet Count 197 K/mm3 (150-400); RDW Coefficient Variation 13.3 % (11.7-14.2); Red Blood Cell Count 3.33 M/mm3 (4.30-5.90); White Blood Cell Count 8.24 K/mm3 (4.00-11.30)
[2024-04-22 14:07] LABS: Albumin, Blood 2.8 g/dL (3.4-5.0); Albumin/Globulin Ratio 0.7 (0.8-1.8); Bilirubin, Total 0.6 mg/dL (0.1-1.0); Calcium, Blood 8.6 mg/dL (8.5-10.1); Creatinine, Blood 0.91 mg/dL (0.60-1.20); Globulin, Blood 4.1 g/dL (2.2-4.0); Potassium, Blood 3.9 mmol/L (3.5-5.5); Total Protein, Blood 6.9 g/dL (6.4-8.2)
[2024-04-22] MEDS ORDERED: LORazepam 2 MG/ML 1ML Injection IV PRN ×3 (15:15→16:10)
[2024-04-22] MEDS ORDERED: NS 1,000 ML IV SCH (16:00)
[2024-04-22] MEDS ORDERED: FLU VACC TS2024-25(6MOS UP)/PF 45 MCG/0.5 ML SYRINGE IM SCH (16:00)
[2024-04-22] MEDS ORDERED: Octreotide Acetate 50 MCG in NS 50 ML IV STA (16:03)
[2024-04-22] MEDS ORDERED: Octreotide Acetate 500 MCG in NS 250 ML IV SCH (16:05)
[2024-04-22] MEDS ORDERED: ChlordiazePOXIDE 25 MG Cap PO PRN ×2 (16:05→16:10)
[2024-04-22] MEDS ORDERED: Metoclopramide HCl 5MG / ML 2ML Vial IV PRN (16:05)
[2024-04-22 16:18] LABS: International Normalized Ratio 1.04; Prothrombin Time Results 11.1 Sec (9.7-11.5)
[2024-04-22] MEDS ORDERED: Ondansetron HCl 2 MG / ML 2ML Vial IV PRN (16:20)
[2024-04-22] MEDS ORDERED: Pantoprazole Sodium 40 MG Injection IV SCH (16:30)
[2024-04-22] MEDS ORDERED: CefTRIAXone Sodium 1,000 MG in NS 100 ML IV SCH (17:00)
[2024-04-22] MEDS ORDERED: NS 1,000 ML IV ONE (17:00)
[2024-04-22 18:08] VITALS: BP 145/88
[2024-04-22 18:33] LABS: Hematocrit 29.5 % (37.0-53.0); Hemoglobin 9.6 g/dL (13.5-17.5)
--- NOTE | 2024-04-22 18:57 | NUR ---
PT ER ADMIT INTO PCU 07, REPORT FROM TALHA HENRY PT IS ALERT AND ORIENTEDX3-4, CIWA 12 AT THIS TIME. 1P ASSIST FOR TX. ON TELE HE IS SR 90'S. BP STABLE. DENIES ANIGNA OR CHEST PRESSURE. SP02 >93%, ON RA. PT DENIES SOB. PT DOES C/O FOGGY MENTATION AND HEAACHE. SEIZURE PADS ON BED, SCD'S HOOKED UP TO PT, OCTREOTIDE INFUSING, PT HX COMPLETED. MEDICATION LIST IS NOT RECONCILLED D/T PT NOT KNOWING EXACTLY WHAT MEDICATIONS HE TAKES. CARE HANDED OFF TO ONCOMING NURSE. SEE NOTES FOR UPDATES.
[2024-04-22 19:55] VITALS: BP 164/111
[2024-04-22] MEDS ORDERED: LevETIRAcetam 500 MG Tab PO SCH (21:00)
[2024-04-22 22:28] LABS: Hematocrit 26.3 % (37.0-53.0); Hemoglobin 8.5 g/dL (13.5-17.5)
[2024-04-22 23:29] VITALS: BP 154/94
--- NOTE | 2024-04-23 00:20 | NUR ---
ASSUMPTION OF CARE THIS RN ASSUMED CARE OF PATIENT FROM PHYLLIS HENRY AT 2300. PT A&O X4. MEDICATED PER EMAR FOR CIWA PROTOCOL. SEE EMAR. PT DENIES PAIN AT THIS TIME. CALLING APPROPRIATELY FOR NEEDS. CLEAR LIQUID DIET AT THIS TIME. NS AND OCTREOTIDE GTT INFUSING PER EMAR. VSS. ON RA. BED IN LOWEST POSITION AND CALL LIGHT WITHIN REACH.
[2024-04-23 03:24] VITALS: BP 158/99
[2024-04-23 03:25] VITALS: BP 152/101
[2024-04-23 04:00] VITALS: BP 145/104
[2024-04-23 04:55] LABS: BASOPHILS ABSOLUTE AUTO 0.02 K/mm3 (0.00-0.23); BASOPHILS PERCENT AUTO 1 % (0-2); EOSINOPHILS ABSOLUTE AUTO 0.04 K/mm3 (0.00-0.68); EOSINOPHILS PERCENT AUTO 1 % (0-6); Hematocrit 26.3 % (37.0-53.0); Hemoglobin 8.6 g/dL (13.5-17.5); IMMATURE GRAN ABSOLUTE AUTO 0.01 K/mm3 (0.00-0.10); IMMATURE GRAN PERCENT AUTO 0 % (0-1); LYMPHOCYTES PERCENT AUTO 34 % (21-46); MONOCYTES PERCENT AUTO 14 % (4-13); Mean Corpuscular HGB 32.1 pg (26.0-34.0); Mean Corpuscular HGB Conc 32.7 g/dL (31.5-36.5); Mean Corpuscular Volume 98 fL (80-100); Mean Platelet Volume 9.8 fL (9.1-12.4); NEUTROPHILS ABSOLUTE AUTO 2.19 K/mm3 (1.96-9.15); NEUTROPHILS PERCENT AUTO 50 % (41-73); Platelet Count 106 K/mm3 (150-400); RDW Coefficient Variation 13.2 % (11.7-14.2); RDW Standard Deviation 47.1 fL (35.1-46.3); Red Blood Cell Count 2.68 M/mm3 (4.30-5.90); White Blood Cell Count 4.36 K/mm3 (4.00-11.30)
--- NOTE | 2024-04-23 04:58 | NUR ---
SHIFT SUMMARY SEE PREVIOUS NOTES. PT A&O X3-4. OCCASIONALLY UNSURE OF DATE/TIME. CIWA 5-12. MEDICATING PER EMAR. PT USING BATHROOM WITH SBA. NS AND OCTREOTIDE INFUSING PER EMAR. VSS. ON RA. MILD HTN. AT APPROXIMATELY 0320 PT REPORTED SHARP CONTINUOUS MID STERNUM CHEST PAIN 11/19. EKG DONE. CALL PLACED TO PROVIDER REGARDING CHEST PAIN. VERBALIZED THAT SHE IS REVIEWING CHART. AWAITING ORDERS AT THIS TIME.
[2024-04-23] MEDS ORDERED: FentaNYL Citrate 50 MCG/ML 2 ML Injection IV PRN (05:05)
[2024-04-23 05:30] LABS: Albumin, Blood 2.5 g/dL (3.4-5.0); Albumin/Globulin Ratio 0.7 (0.8-1.8); Bilirubin, Total 1.3 mg/dL (0.1-1.0); Bun/Creatinine Ratio 21.6 (12.0-20.0); Calcium, Blood 7.7 mg/dL (8.5-10.1); Creatinine, Blood 0.83 mg/dL (0.60-1.20); Globulin, Blood 3.4 g/dL (2.2-4.0); Magnesium, Blood 1.3 mg/dL (1.6-2.4); Potassium, Blood 3.4 mmol/L (3.5-5.5); Total Protein, Blood 5.9 g/dL (6.4-8.2)
--- NOTE | 2024-04-23 05:44 | NUR ---
CALLED MD JOY D/T MAGNESIUM OF 1.3 ON LABS. AWAITING ORDERS AT THIS TIME
[2024-04-23] MEDS ORDERED: Magnesium Sulf 2 GM/Water 50ML 50 ML IV ONE (06:35)
[2024-04-23] MEDS ORDERED: Potassium Chloride 20 MEQ TabCR PO ONE (07:00)
[2024-04-23 07:12] LABS: IMMATURE RETIC FRACTION 14.1 % (2.3-16.0); RETIC HGB EQUIVALENT 31.5 pg (28.20-36.60); RETICULOCYTE ABSOLUTE 0.0442 M/mm3 (0.0200-0.1100); RETICULOCYTE COUNT PERCENT 1.65 % (0.50-2.50)
[2024-04-23 07:45] LABS: Percent Saturation 68.7 % (20.0-50.0)
[2024-04-23 07:53] VITALS: BP 127/84
[2024-04-23] MEDS ORDERED: Folic Acid 1 MG TAB PO SCH (09:00)
[2024-04-23] MEDS ORDERED: Metoprolol Succinate 25 MG TABCR PO SCH (09:00)
[2024-04-23] MEDS ORDERED: Multivitamins 1 Tab PO SCH (09:00)
[2024-04-23] MEDS ORDERED: Nicotine 7 MG PATCH TOP SCH (09:00)
[2024-04-23] MEDS ORDERED: Thiamine HCl 100 MG Tab PO SCH (09:00)
[2024-04-23 10:56] VITALS: BP 146/88
[2024-04-23] MEDS ORDERED: Nicoderm Cq1 EACH TOP (14:19)
[2024-04-23] MEDS ORDERED: PANT40 PO ×2 (14:21)
[2024-04-23] MEDS ORDERED: Pantoprazole Sodium 40 MG Tab PO SCH (16:30)
[2024-04-24 16:15] LABS: HEPATITIS B SURFACE ANTIBODY <3.10 IU/L
[2024-04-24 16:48] LABS: HBV CORE ANTIBODIES,TOTAL Negative (Negative)
[2024-04-24 17:41] LABS: HEPATITIS A ANTIBODIES, TOTAL Negative (Negative)
== END 2024-04-23 14:48 | disposition home or self-care (01) | DRG 378 ==
LOC: ER 13:11 → PCU 13:12 → ERHOLD 13:12 → PCU 17:52
PROVIDERS: Emergency Medicine; Internal Medicine Gastroenterology; Nurse Practitioner Acute Care; ADMIT Internal Medicine
DX: K92.1 Melena (principal); F10.239 Alcohol dependence with withdrawal, unspecified; I10 Essential (primary) hypertension; M54.9 Dorsalgia, unspecified; F17.210 Nicotine dependence, cigarettes, uncomplicated; K70.30 Alcoholic cirrhosis of liver without ascites; F32.A Depression, unspecified; G40.909 Epilepsy, unspecified, not intractable, without status epilepticus; F41.1 Generalized anxiety disorder; D63.8 Anemia in other chronic diseases classified elsewhere; K21.9 Gastro-esophageal reflux disease without esophagitis; I25.10 Atherosclerotic heart disease of native coronary artery without angina pectoris; Z68.32 Body mass index [BMI] 32.0-32.9, adult; E11.51 Type 2 diabetes mellitus with diabetic peripheral angiopathy without gangrene; E66.9 Obesity, unspecified; G89.4 Chronic pain syndrome; F12.90 Cannabis use, unspecified, uncomplicated; K31.89 Other diseases of stomach and duodenum; G47.00 Insomnia, unspecified; Z87.442 Personal history of urinary calculi; Z90.49 Acquired absence of other specified parts of digestive tract; Z98.890 Other specified postprocedural states; Z88.5 Allergy status to narcotic agent; Z88.8 Allergy status to other drugs, medicaments and biological substances; Z79.899 Other long term (current) drug therapy; Z90.6 Acquired absence of other parts of urinary tract; Z95.1 Presence of aortocoronary bypass graft; Z87.81 Personal history of (healed) traumatic fracture; Z98.1 Arthrodesis status; K29.20 Alcoholic gastritis without bleeding
CPT/HCPCS: 36415; 71045; 76705; 80053; 82105; 82272; 82607; 82728; 82746; 83540; 83550; 83735; 85014; 85018; 85025; 85045; 85610; 86704; 86708; 86850; 86900; 86901; 96374; 99285-25; A9270; J0696; J2060; J2354; J2470; J3010; J3475; J7030; J7050

== ENCOUNTER → 2024-10-31 | Outpatient (CLI) | payer MEDICARE, OTHER ==
[~2024-10-31] MED LIST changes: +PANT40 PO
== END | disposition home or self-care (01) ==
LOC: LAB SHORT 15:13 → LAB 15:13
DX: R30.0 Dysuria (principal)
CPT/HCPCS: 87086

== ENCOUNTER 2025-03-06 19:19 | Emergency (ER) | payer MEDICARE, OTHER ==
[~2025-03-06] VITALS: Ht 170.2 cm; Wt 99.8 kg
[2025-03-06 19:46] LABS: BASOPHILS ABSOLUTE AUTO 0.04 K/mm3 (0.00-0.23); BASOPHILS PERCENT AUTO 0 % (0-2); EOSINOPHILS ABSOLUTE AUTO 0.13 K/mm3 (0.00-0.68); EOSINOPHILS PERCENT AUTO 1 % (0-6); Hematocrit 45.8 % (37.0-53.0); Hemoglobin 16.0 g/dL (13.5-17.5); IMMATURE GRAN ABSOLUTE AUTO 0.01 K/mm3 (0.00-0.10); IMMATURE GRAN PERCENT AUTO 0 % (0-1); LYMPHOCYTES ABSOLUTE AUTO 3.17 K/mm3 (0.84-5.20); LYMPHOCYTES PERCENT AUTO 33 % (21-46); MONOCYTES ABSOLUTE AUTO 1.03 K/mm3 (0.16-1.47); MONOCYTES PERCENT AUTO 11 % (4-13); Mean Corpuscular HGB Conc 34.9 g/dL (31.5-36.5); Mean Corpuscular Volume 90 fL (80-100); NEUTROPHILS ABSOLUTE AUTO 5.30 K/mm3 (1.96-9.15); NEUTROPHILS PERCENT AUTO 55 % (41-73); NRBC ABSOLUTE 0.00 K/mm3 (0.00-0.02); NRBC Auto 0.0 /100 WBC (0.0-0.2); Platelet Count 234 K/mm3 (150-400); RDW Coefficient Variation 11.5 % (11.7-14.2); RDW Standard Deviation 37.8 fL (35.1-46.3)
[2025-03-06 20:10] LABS: Alanine Aminotransfer (ALT/SGP 44.0 U/L (12-78); Albumin, Blood 3.4 g/dL (3.4-5.0); Albumin/Globulin Ratio 0.8 (0.8-1.8); Anion Gap 9.0 mmol/L (3-11); Aspartate Aminotrans (AST/SGOT 52.0 U/L (12-37); Bilirubin, Total 3.1 mg/dL (0.1-1.0); Blood Urea Nitrogen 15.0 mg/dL (8-24); CO2, Blood 26.0 mmol/L (21-32); Calcium, Blood 9.3 mg/dL (8.5-10.1); Chloride, Blood 106.0 mmol/L (98-108); Creatinine, Blood 0.86 mg/dL (0.60-1.20); Globulin, Blood 4.0 g/dL (2.2-4.0); Glucose, Blood 126.0 mg/dL (70-99); Potassium, Blood 3.9 mmol/L (3.5-5.5); Sodium, Blood 137.0 mmol/L (136-145); Total Protein, Blood 7.4 g/dL (6.4-8.2)
[2025-03-06] MEDS ORDERED: Morphine Sulfate 4 MG/1 ML Injection IV ONE (20:15)
[2025-03-06] MEDS ORDERED: Ondansetron HCl 2 MG / ML 2ML Vial IV ONE (20:25)
[2025-03-06] MEDS ORDERED: RX Prepack 6 Tabs Oxycodone 5mg UD ONE (21:40)
[2025-03-06] MEDS ORDERED: Percocet 5-3251 EACH PO (21:42)
[2025-03-06 22:00] VITALS: BP 159/94
== END 2025-03-06 22:12 | disposition home or self-care (01) ==
LOC: ER 19:19
PROVIDERS: Student in an Organized Health Care Education/Training Program
DX: I10 Essential (primary) hypertension (principal); E11.9 Type 2 diabetes mellitus without complications; F17.210 Nicotine dependence, cigarettes, uncomplicated; Z79.899 Other long term (current) drug therapy; Z88.5 Allergy status to narcotic agent; Z88.8 Allergy status to other drugs, medicaments and biological substances
CPT/HCPCS: 80053; 84484; 85025; 93005; 93010; 96374; 96375; 99284-25; A9270; J2270; J2405

== ENCOUNTER 2025-03-08 12:58 | Emergency (ER) | payer MEDICARE, OTHER ==
[~2025-03-08] VITALS: Ht 170.2 cm; Wt 99.8 kg
[2025-03-08 13:05] VITALS: BP 197/107
[2025-03-08 13:27] LABS: BASOPHILS ABSOLUTE AUTO 0.03 K/mm3 (0.00-0.23); BASOPHILS PERCENT AUTO 0 % (0-2); EOSINOPHILS ABSOLUTE AUTO 0.06 K/mm3 (0.00-0.68); EOSINOPHILS PERCENT AUTO 1 % (0-6); Hematocrit 44.0 % (37.0-53.0); Hemoglobin 15.2 g/dL (13.5-17.5); IMMATURE GRAN ABSOLUTE AUTO 0.01 K/mm3 (0.00-0.10); IMMATURE GRAN PERCENT AUTO 0 % (0-1); LYMPHOCYTES ABSOLUTE AUTO 1.94 K/mm3 (0.84-5.20); LYMPHOCYTES PERCENT AUTO 26 % (21-46); MONOCYTES ABSOLUTE AUTO 0.66 K/mm3 (0.16-1.47); MONOCYTES PERCENT AUTO 9 % (4-13); Mean Corpuscular HGB Conc 34.5 g/dL (31.5-36.5); Mean Corpuscular Volume 89 fL (80-100); NEUTROPHILS ABSOLUTE AUTO 4.88 K/mm3 (1.96-9.15); NEUTROPHILS PERCENT AUTO 64 % (41-73); NRBC ABSOLUTE 0.00 K/mm3 (0.00-0.02); NRBC Auto 0.0 /100 WBC (0.0-0.2); Platelet Count 213 K/mm3 (150-400); RDW Coefficient Variation 11.2 % (11.7-14.2); RDW Standard Deviation 36.3 fL (35.1-46.3)
[2025-03-08 13:47] LABS: Alanine Aminotransfer (ALT/SGP 48.0 U/L (12-78); Albumin, Blood 3.2 g/dL (3.4-5.0); Albumin/Globulin Ratio 0.8 (0.8-1.8); Anion Gap 9.0 mmol/L (3-11); Aspartate Aminotrans (AST/SGOT 59.0 U/L (12-37); Bilirubin, Total 2.6 mg/dL (0.1-1.0); Blood Urea Nitrogen 13.0 mg/dL (8-24); CO2, Blood 25.0 mmol/L (21-32); Calcium, Blood 8.8 mg/dL (8.5-10.1); Chloride, Blood 106.0 mmol/L (98-108); Creatinine, Blood 0.79 mg/dL (0.60-1.20); Globulin, Blood 3.8 g/dL (2.2-4.0); Glucose, Blood 113.0 mg/dL (70-99); Potassium, Blood 3.8 mmol/L (3.5-5.5); Sodium, Blood 136.0 mmol/L (136-145); Total Protein, Blood 7.0 g/dL (6.4-8.2)
== END 2025-03-08 16:35 | disposition home or self-care (01) ==
LOC: ER 12:58
PROVIDERS: Physician Assistant
DX: M54.50 Low back pain, unspecified (principal); G89.29 Other chronic pain; I10 Essential (primary) hypertension; E11.9 Type 2 diabetes mellitus without complications; F17.210 Nicotine dependence, cigarettes, uncomplicated; Z79.899 Other long term (current) drug therapy; Z88.1 Allergy status to other antibiotic agents; Z88.5 Allergy status to narcotic agent; Z88.8 Allergy status to other drugs, medicaments and biological substances
CPT/HCPCS: 80053; 85025; 99283; A9270